=== PATIENT | female | born 1955 | race Caucasian/White ===

== ENCOUNTER 2023-04-06 23:42 | Inpatient (IN) | payer OTHER, SELFPAY ==
[2023-04-06] VITALS (11 sets, daily range): BP systolic 172–236; BP diastolic 89–223; BMI 45.0
[2023-04-06 18:13] LABS: % Basophils 0.4 % (0-2); % Eosinophils 1.6 % (0-6); % Immature Granulocytes 0.2 % (0-0.5); % Lymphocytes 22.2 % (20.5-51.1); % Neutrophils 70.6 % (42.2-75.2); Absolute Eosinophils 0.2 10^3/uL (0-0.7); Absolute Lymphocytes 2.1 10^3/uL (1.2-3.4); Absolute Monocytes 0.5 10^3/uL (0.1-0.6); Absolute Neutrophils 6.7 10^3/uL (1.4-6.5); Hematocrit 43.9 % (37.0-47.0); Hemoglobin 15.7 g/dL (12.0-16.0); Mean Corp Hgb Conc. 35.8 g/dL (33.0-37.0); Mean Corpuscular Hgb 30.3 pg (27.0-31.0); Mean Corpuscular Volume 84.7 fL (81.0-99.0); Nucleated Red Blood Cells % 0 %; Platelet Count 339 10^3/uL (130-400); Red Blood Cell Count 5.18 10^6/uL (4.20-5.40); Red Cell Dist. Width 12.9 % (11.5-14.5); White Blood Cell Count 9.5 10^3/uL (4.8-10.8)
[2023-04-06 18:25] LABS: APTT 41.7 Sec (23.4-35.0)
[2023-04-06 18:28] LABS: ALT (SGPT) 28 U/L (0-35); AST (SGOT) 35 U/L (14-36); Alkaline Phosphatase 84 U/L (38-126); Blood Urea Nitrogen 21 mg/dl (7-17); Calcium 9.4 mg/dl (8.4-10.2); Carbon Dioxide 21 mmol/L (22-30); Chloride 99 mmol/L (98-107); Glucose 332 mg/dl (70-99); Potassium 4.7 mmol/L (3.5-5.1); Sodium 134 mmol/L (135-145); Total Bilirubin 0.8 mg/dl (0.2-1.3); eGFR > 60.00
--- NOTE | 2023-04-06 19:15 | ED.GENMED ---
History of Present Illness
General
Chief Complaint: Chest Pain
Source: patient and family
Exam Limitations: none
Time Seen by Provider: 04/06/23 19:07
Nursing documentation reviewed up to this point in time: agreed with
Travel History
Have you had any contact with someone who has COVID-19?: No
Do you have any symptoms of coronavirus? Fever > 100 degrees, chills, cough, shortness of breath, sore throat, loss of taste or smell, muscle aches, or headache?: No
History of Present Illness
History of Present Illness:
68-year-old female originally from [place] been in the [place] for about 40 years companied by her 2 sisters presents with upper back pain she has had that for months today radiate to the front some pain in her chest no shortness of breath no fever
or chills she has chronic pain in her back due to her employment no PCP, does not take any medications, been helping care for her sister who has breast cancer also noticed some leg edema saw chiropractor today who she seen previously not much
relief, has had lumbar spine surgery many years ago
Past History
Past History
ED Past Medical History: None
ED Past Surgical History: Orthopedic (Lumbar surgery many years ago)
Social History
Tobacco: Non-smoker
Drug: None
Living: with family
Employment: Retired
Family History
Family History: Other (Sister with breast cancer)
Review of Systems
Review of Systems
All Other Systems: Not applicable
Constitutional: Denies fever or fatigue
Respiratory: Denies cough or trouble breathing
Cardiac: Reports chest pain
ABD/GI: Reports no symptoms
: Reports no symptoms
Musculoskeletal: Reports edema
Phy Exam
Physical Exam
Physical Exam:
Physical Exam
General: no apparent distress, not acutely ill
Neck: No jaundice
Heart: Tachycardic
Back, bilateral mild paraspinal thoracic spine pain
Lungs: no acute respiratory distress. clear bilaterally
Abdomen: Not tender
Neuro: alert and oriented. no focal neurological deficits
Skin: no rash
Psychiatric: well kept. interactive and cooperative
Extremities: Edema is
Scores
Heart Score for Chest Pain Patients
STEMI patient?: No
History: Moderately Suspicious
ECG: Significant ST-Depression
Age: >/= 65 years
Risk Factors: >/= 3 Risk Factors or History of CAD
Troponin: >1 - <3 x Normal Limit
Heart Score for Chest Pain Patients: 8
Heart Score Risk: 72.7 % MACE over next 6 weeks
Course
Orders/Labs/Results
Orders:
Orders
04/06/23 17:26
Electrocardiogram (*1) Urgent
Reason for Study: Chest Pain
EKG- Treatment ONCE
04/06/23 18:02
Complete Blood Count/With Diff Urgent
Comprehensive Metabolic Panel Urgent
Glycohemoglobin (HgbA1c) Urgent
Protime/PTT Urgent
04/06/23 19:00
NT-proBNP Urgent
Comment: ADD ON
Troponin I Urgent
04/06/23 19:13
CT Chest Pe Study Urgent
Comment:
Reason For Exam: pain
Diazepam [Valium] 5 mg PO NOW STA
Ketorolac [Toradol] 30 mg IV NOW STA
04/06/23 19:14
Add On- LAB Urgent
Tests Added?: hemoglobin aic
CR Cervical Spine 2 or 3 Vw Urgent
Comment:
Reason For Exam: sob
04/06/23 19:17
Add On- LAB Urgent
Tests Added?: pbnp
04/06/23 20:51
Heparin 4,000 units IV NOW STA
Metoprolol [Lopressor] 5 mg IV NOW STA
04/06/23 20:52
PTT Urgent
Comment: Obtain baseline before beginning heparin infusion if not already collected
Nursing to Place Non Medication Order As Directed
Physician Order: PTT 6 hours after initial start of Heparin infusion
04/06/23 20:54
Aspirin 325 mg PO NOW STA
04/06/23 20:56
PTT Urgent
Comment: Obtain baseline before beginning heparin infusion if not already collected
Nursing to Place Non Medication Order As Directed
Physician Order: PTT 6 hours after initial start of Heparin infusion
04/06/23 21:00
Heparin 22988 Units/250 ml 25,000 units in 250 ml IV PER PROTOCOL
Weight to be used for heparin protocol in kilograms (kg):: 126.4
Protocol:: Cardiac Tx/Acute Coronary
PTT Goal Range to be used:: PTT 73 to 111 seconds
Order type:: Initial
INITIAL Infusion Dose (UNITS/KG/hr) & then follow protocol:: 12 units/kg/hr
Infusion Dose in UNITS/hr & then follow protocol (UNITS/hr):: 1,000
INFUSION RATE in mL/hr & then follow protocol (mL/hr):: 10
PTT less than or equal to 64 seconds:: Increase rate by 200 units/hr (+ 2 mL/hr)
PTT 64.1 to 72.9 seconds:: Increase rate by 100 units/hr (+ 1 mL/hr)
PTT 73 to 111 seconds:: Target Range. No change in rate.
PTT 111.1 to 130.9 seconds:: Decrease rate by 100 units/hr (- 1 mL/hr)
PTT 131 to 199.9 seconds:: HOLD for 1 hr. Then decrease rate by 200 units/hr (- 2 mL/hr)
PTT greater than or equal to 200 seconds:: HOLD for 2 hrs & Notify Provider. Then decrease by 200 units/hr (-
2 mL/hr)
Lab follow-up:: Each change, PTT q6h until 2 consecutive are therapeutic. Then PTT
daily.
Nitroglycerin 100 mg/250 ml [Nitroglycerin Premix] 100 mg in 250 ml IV PER PROTOCOL
Initial dose in mcg/min, then titrate:: 20
Titrate to keep:: Chest Pain Free
Titrate by mcg/min:: 5 mcg/min, may increase by 10 mcg/min if dose > 20 mcg/min
Frequency of titrations (minutes):: every 3-5 minutes
Maximum dose in mcg/min:: 200
Begin to taper infusion when:: Remained at goal for 2hrs
Taper by mcg/min:: 5 mcg/min
Frequency of taper (minutes) if patient maintains goal:: 30
Taper to off?: Yes
If infusion off & no longer maintaining goal:: Contact Provider
04/06/23 21:32
Electrocardiogram (*1) Urgent
Reason for Study: Chest Pain
EKG- Treatment ONCE
04/06/23 22:02
CARDIOLOGY CONSULT Urgent
Consulting Provider: Mundo Toledo
Was physician already notified: Yes
Abnormal Lab Results
04/06/23 04/06/23
18:02 19:00
Absolute Neuts (auto) 6.7 H 10^3/uL
(1.4-6.5)
APTT 41.7 H Sec
(23.4-35.0)
Sodium 134 L mmol/L
(135-145)
Carbon Dioxide 21 L mmol/L
(22-30)
BUN 21 H mg/dl
(7-17)
Glucose 332 H mg/dl
(70-99)
Troponin I 0.765 H* ng/ml
04/06/23 18:02
04/06/23 18:02
Vital Signs
Initial and Last Documented VS:
Initial Vital Signs
Temp Pulse Resp BP Pulse Ox
98.5 F 113 18 236/149 99
04/06/23 17:24 04/06/23 17:24 04/06/23 17:24 04/06/23 17:24 04/06/23 17:24
Last Documented Vital Signs
Temp Pulse Resp BP Pulse Ox
98.5 F 91 23 211/104 92
04/06/23 17:24 04/06/23 23:00 04/06/23 23:00 04/06/23 23:00 04/06/23 23:00
MDM/Problems Addressed
Differential Diagnosis Includes:
Strain strain heart failure pneumonia PE occult malignancy?
MDM/Problems Addressed:
Back pain
Chronic conditions affecting care:
Arthritis
*Critical Care Note
Total Time (30-74mins, 75-104mins- exclusive of procedures): 45
Update Note
Update Note:
Update labs are noted we will check A1c proBNP check CT of the chest
7:45 PM troponin noted no chest pain does have tachycardia shortness of breath back pain troponin could be elevated due to PE, ACS dissection patient going over to CT now hold off on heparin until CAT scans return to ascertain what were dealing with
8:[address] noted we will start her on heparin beta-vito nitrates aspirin
BP heart rate outpatient with her current pain will follow closely repeat EKG
ED Attending Note
-
Portions of this chart may have been created with voice recognition software.� Occasional wrong word or��sound alike� substitutions may have occurred due to the inherent limitations of voice recognition software.
Discharge Plan
Departure
Patient Disposition: Admit
Date of Disposition: 04/06/23
Time of Disposition: 21:45
Admit to: IVU
Presentation/result/management discussed w/ accepting MD/DO: Hospitalist
Patient with high blood pressure during this ER visit?: Yes
Condition: Serious
Covid-19: Not Applicable
Discharge Problem:
ACS (acute coronary syndrome)
Prescriptions:
No Action
aspirin 81 mg Tablet,Delayed Release (Dr/Ec)
162 mg PO ONCE
ibuprofen [Advil] 200 mg Tablet
200 mg PO Q6H PRN (Reason: MILD PAIN)
Referrals:
UNKNOWN - PT DOES,NOT KNOW [Family Provider] -
Interventions
Interventions:
*Risk Screen - Suicide Last Done: 04/06/23 17:24
*General Assessment Last Done: 04/06/23 17:24
*Neglect/Abuse Screening Last Done: 04/06/23 17:24
*ED COVID-19 Vaccine History Last Done: 04/06/23 17:24
ED- Cardiac Assessment Last Done: 04/06/23 18:04
[2023-04-06] MEDS: TORADOL 30 MG IV (19:17)
[2023-04-06] MEDS: VALIUM 5 MG PO (19:18)
[2023-04-06 19:40] LABS: Troponin I 0.765 ng/ml
[2023-04-06 20:00] LABS: NT-proBNP 236 pg/ml
[2023-04-06] MEDS: ASPIRIN 325 MG PO (21:38)
[2023-04-06] MEDS: LOPRESSOR 5 MG IV (21:39)
[2023-04-06] MEDS: HEPARIN 4000 UNITS IV (21:47)
[2023-04-06] MEDS: HEPARIN 25000 UNITS/250 ML IV (21:49)
[2023-04-06] MEDS: NITROGLYCERIN PREMIX 250 IV (23:07)
--- NOTE | 2023-04-06 23:26 | HPS.HSE ---
Family Physician
-
Family Physician: NOT KNOW UNKNOWN - PT DOES
Chief Complaint
-
back pain, chest pain
History of Present Illness
The patient is a 68 yo Yi woman with PMH significant for chronic back pain, presents to the ED due to worsening back pain for the past several weeks that she initially attributed to chronic back problems, though the symptoms were associated
with substernal chest pain that worsened with activity and improved with rest. She was going to the chiropractor and also having her sister massage her back. Chest pain is substernal, not associated with dyspnea, typically improves with rest over
the past few weeks. Today she noticed chest pain that did not improve with rest. She has been helping her sister with breast cancer and otherwise does not typically take medications. She was not aware of high blood sugars. No fever, no syncope, no
dizziness, no headache, no neurological symptoms, no dysuria, no abdominal complaints.
In ED she is found to be HTN emergency, and NSTEMI
ED txt:
Ntg gtt
Hep gtt
Cards cx
aspirin 325
Toradol, Valium
Medical History
Past Medical History
Past Medical History: Reports Other (chronic back issues)
Past Surgical History: Reports Orthopedic (lumbar several years prior)
Social History
Tobacco: Non-smoker
Alcohol: None
Drug: None
Living: With Family (sisters)
Family History
Family History: Cancer (breast cancer in sister)
Allergies / Home Medications
Allergies reflects when Allergies were last updated in [employer].
Home Medications with original date entered in [employer]
Allergy/Medication List:
Allergies
Allergy/AdvReac Type Severity Reaction Status Date / Time
No Known Allergies Allergy Unverified 04/06/23 17:26
Home Medications
aspirin 81 mg tablet,delayed release 162 mg PO ONCE 04/06/23
ibuprofen 200 mg tablet (Advil) 200 mg PO Q6H PRN MILD PAIN 04/06/23
Review of Systems
-
A 12 point ROS was completed and negative except as noted: Yes
Physical Exam
Vital Signs
Vital Signs
Temp Pulse Resp BP Pulse Ox
98.5 F 91 23 211/104 92
04/06/23 17:24 04/06/23 23:00 04/06/23 23:00 04/06/23 23:00 04/06/23 23:00
Physical Exam
General: Well Developed, Well Nourished, Comfortable and Conversant
HEENT: NormoCephalic, Anicteric and Moist mucous membranes
Respiratory: Clear
Cardiac: S1/S2 and Regular Rhythm
GI: Soft, Non Tender and Non Distended
Musculoskeletal: No Clubbing, No Cyanosis, Edema, Left Lower Extremity (1+) and Edema, Right Lower Extremity (1+)
Skin: Warm and Dry
Neuro: AO x 3, No Motor Deficits and Nonfocal/grossly intact
Psych: Calm
Laboratory Results
-
04/06/23 18:02
04/06/23 18:02
Laboratory Results
PT 12.0 Sec (11.4-14.6) 04/06/23 18:02
INR 0.90 04/06/23 18:02
APTT 41.7 Sec (23.4-35.0) H 04/06/23 18:02
Total Bilirubin 0.8 mg/dl (0.2-1.3) 04/06/23 18:02
AST 35 U/L (14-36) 04/06/23 18:02
ALT 28 U/L (0-35) 04/06/23 18:02
Alkaline Phosphatase 84 U/L (38-126) 04/06/23 18:02
Troponin I 0.765 ng/ml H* 04/06/23 19:00
Impression/Plan
-
IMPRESSION:
The patient is a 68 yo Yi woman with PMH significant for chronic back pain, presents to the ED due to worsening back pain for the past several weeks that she initially attributed to chronic back problems, though the symptoms were associated
with substernal chest pain that worsened with activity and improved with rest. She was going to the chiropractor and also having her sister massage her back. Chest pain is substernal, not associated with dyspnea, typically improves with rest over
the past few weeks. Today she noticed chest pain that did not improve with rest. She has been helping her sister with breast cancer and otherwise does not typically take medications. She was not aware of high blood sugars. No fever, no syncope, no
dizziness, no headache, no neurological symptoms, no dysuria, no abdominal complaints.
In ED she is found to be HTN emergency, and NSTEMI
ED txt:
Ntg gtt
Hep gtt
Cards cx
aspirin 325
Toradol, Valium
#NSTEMI, possible unstable angina
-IVU admit
-Cards consulted from ED
-serial EKG, serial Trop
-Echo
-cont NTG gtt and heparin gtt
-daily aspirin and statin
-NPO p mn
-cardiovascular labs in am, PT/INR, CBC repeat, Mg, TSH
#New DM diagnosis
-SSI for now, monitor glucose closely and may need to start long-activing insulin
-HgbA1C in am
#HTN emergency
-continue Ntg gtt w close monitoring in IVU
#BMI 45.0
-complicates all aspect of care
DVT - Hep gtt
Full Code
75 minutes of critical care time is spent on the care of this patient
[2023-04-07] VITALS (16 sets, daily range): BP systolic 128–204; BP diastolic 67–107; BMI 44.4
--- NOTE | 2023-04-07 00:45 | PTCARENOTE ---
Received patient from ED. Pt on heparin gtt @ 1000 units, nitro gtt @ 20mcg. Pt denies chest pain. Assessment per flowsheet. Sisters at bedside. Pt oriented to room, call rossi in reach. Troponin drawn and EKG done. BP elevated - will recheck after
patient is resting.
[2023-04-07] MEDS: LIPITOR 40 MG PO (01:38)
[2023-04-07 04:03] LABS: % Basophils 0.3 % (0-2); % Eosinophils 1.6 % (0-6); % Immature Granulocytes 0.1 % (0-0.5); % Lymphocytes 31.3 % (20.5-51.1); % Monocytes 6.7 % (1.7-9.3); Absolute Eosinophils 0.1 10^3/uL (0-0.7); Absolute Lymphocytes 2.8 10^3/uL (1.2-3.4); Absolute Monocytes 0.6 10^3/uL (0.1-0.6); Absolute Neutrophils 5.4 10^3/uL (1.4-6.5); Hematocrit 38.1 % (37.0-47.0); Hemoglobin 13.1 g/dL (12.0-16.0); Mean Corp Hgb Conc. 34.4 g/dL (33.0-37.0); Mean Corpuscular Hgb 29.6 pg (27.0-31.0); Mean Corpuscular Volume 86.2 fL (81.0-99.0); Mean Platelet Volume 9.1 fL (7.4-10.4); Nucleated Red Blood Cells % 0 %; Platelet Count 321 10^3/uL (130-400); Red Blood Cell Count 4.42 10^6/uL (4.20-5.40); White Blood Cell Count 8.9 10^3/uL (4.8-10.8)
[2023-04-07 04:24] LABS: INR 1.06; PT 13.6 Sec (11.4-14.6)
[2023-04-07 04:26] LABS: ALT (SGPT) 30 U/L (0-35); APTT 61.7 Sec (23.4-35.0); AST (SGOT) 75 U/L (14-36); Albumin 3.6 g/dl (3.5-5.0); Alkaline Phosphatase 76 U/L (38-126); Blood Urea Nitrogen 20 mg/dl (7-17); Calcium 8.6 mg/dl (8.4-10.2); Carbon Dioxide 22 mmol/L (22-30); Chloride 108 mmol/L (98-107); Estimated Creatinine Clearance 119 ml/min; Glucose 188 mg/dl (70-99); HDL Cholesterol 43 mg/dl; Potassium 4.2 mmol/L (3.5-5.1); Sodium 134 mmol/L (135-145); Total Bilirubin 0.4 mg/dl (0.2-1.3); Total Cholesterol 285 mg/dl (50-199); eGFR > 60.00
[2023-04-07 04:47] LABS: Triglyceride 492 mg/dl (10-149)
[2023-04-07 05:30] LABS: LDL Cholesterol, Direct 141 mg/dl
--- NOTE | 2023-04-07 07:50 | CON.CAR ---
Consultation
Consultation Request
Date/Time Consultation Requested: 04/06/2023
Date/Time Consultation Performed: 04/07/2023
Requesting Provider: hospitalist
Performing Provider: gauri acevedo
Reason for Consultation: NSTEMI
Medical History
-
Chief Complaint: chest pain
History of Present Illness:
Patient is 68-year-old female with past medical history of chronic back pain who presented to the emergency room with chest and shoulder pain. She tells me that over approximately the past months she has had typical anginal symptoms. However, she
she did not recognize it as such, and she just thought it was her shoulder pain. She says that she would have shoulder and chest pain described as pressure-like and central that was worse with walking or walking up a flight of stairs, and relieved
with rest. Yesterday, she was out at the mall and was unable to get out of the car. She just was not feeling well and was having this shoulder and chest pain. She then went home and the shoulder and chest pain she just tells me it was tremendous.
It was pressure-like in central and this time did not go away. She then decided to come to the emergency room.
In the emergency room initial troponin was elevated she was started on a heparin drip and given aspirin and cardiology was consulted.
Past Medical History
Past Medical History: None
Past Surgical History: Other (back surgery )
Social History
Tobacco: Non-Smoker
Alcohol: None
Personal: Single
Living: With Family
Employment: Retired
Family History
Family History: Reviewed & Not Pertinent
Allergies / Home Medications
Allergy/AdvReac Type Severity Reaction Status Date / Time
No Known Allergies Allergy Unverified 04/06/23 17:26
Medication Instructions Recorded Confirmed Type
aspirin 81 mg tablet,delayed 162 mg PO ONCE 04/06/23 04/06/23 History
release
ibuprofen 200 mg tablet (Advil) 200 mg PO Q6H PRN MILD PAIN 04/06/23 04/06/23 History
Review of Systems
-
All other systems: Negative unless noted
Physical Exam
Vital Signs
Temp Pulse Resp BP Pulse Ox
97.7 F 92 18 138/79 93
04/07/23 03:44 04/07/23 03:41 04/07/23 03:44 04/07/23 03:41 04/07/23 03:44
Lab Results
04/07/23 03:51
04/07/23 03:51
Troponin I 14.700 ng/ml H* 04/07/23 03:51
Htb-J-Pdohbowzcqb Pept 236 pg/ml 04/06/23 19:00
Physical Exam
General: Well Developed, Well Nourished and No Apparent Distress
HEENT: Normocephalic
Respiratory: Clear and Non Labored Respirations
Cardiac: S1/S2 and Regular Rhythm
GI: Soft, Non Tender, Non Distended, Normal Bowel Sounds and Other (obese)
Musculoskeletal: No Cyanosis and No Edema
Skin: Warm and Dry
Neuro: AO x 3
Psych: Calm
Impression / Plan
-
68 yo female with no significant PMH and not on any medications who is here for chest pain and likely having an NSTEMI.
ACS
- heparin gtt
- atorva 40mg
- metoprolol 12.5 mg bid uptitrate as tolerated
- aspirin 81 daily
- veterinary laboratory diagnostician today
- TTE ordered
New HLD
- atorvastatin 40 mg
Likely DM2
- per primary
- consider SGLT2i
Data Reviewed
-
EKG: Tracing Personally Visualized and interpreted
Labs: Labs Reviewed by me and Discussed with Patient
[2023-04-07] MEDS: LOPRESSOR 12.5 MG PO ×2 (08:16→20:14)
[2023-04-07] MEDS: LOW STRENGTH ASPIRIN 81 MG PO (08:16)
[2023-04-07 08:17] LABS: Glucose - Point of Care 155 mg/dl (70-99)
[2023-04-07 08:56] LABS: Glycohemoglobin (HgbA1c) 8.9 % (4.0-5.6)
[2023-04-07] MEDS: NOVOLOG FLEXPEN-LOW RESISTANCE 1 UNITS SC ×3 (09:13→18:36)
--- NOTE | 2023-04-07 10:37 | CM ---
Chart reviewed. Patient is independent of ADLS, lives with her 2 sisters in a 2 [address], 2 [place], ambulates with a SPC 2/2 chronic back pain. Patient also has a stair glide. The patient and her 1 sister help to care for her other sister who has
metastatic CA. Patient is not current with VN and wants to think about getting VN. CM to follow
--- NOTE | 2023-04-07 10:54 | PTCARENOTE ---
Pt to cathead operator. heparin gtt stopped at 1050. report given to cathead operator RN.
--- NOTE | 2023-04-07 11:47 | ITS.CL.CATH ---
Supervisor Screen Making - Catheterization
Cardiac Catheterization
Procedure Report:
CARDIAC CATHETERIZATION REPORT
Date of Procedure: 04/07/2023
Referring: Mundo Toledo MD
Indication: Non-STEMI (peak troponin 15.3)
HEMODYNAMIC DATA
AO: 156/88
LV: 156/16
LEFT VENTRICULOGRAPHY: Normal left ventricular wall motion with EF 67%
CORONARY ANGIOGRAPHY
Dominance: Right
Left Main: 60% distal stenosis
LAD: There is 40% proximal LAD stenosis. There is focal 80% mid LAD stenosis distal to the takeoff of the large second diagonal branch. There is a 60% stenosis in the mid to distal LAD and another 60% stenosis in the distal LAD. The first
diagonal branch is small. The second diagonal branch is large with tandem 90% and 80% proximal stenoses
Circumflex: There is a large ramus intermedius branch with focal 90% proximal stenosis and 70% mid stenosis. The circumflex gives rise to a tiny OM1, a large OM 2 and a small occluded OM 3. The distal circumflex is occluded just past the takeoff
of the small OM 3. OM 2 is large with 80% proximal to mid stenosis
RCA: The RCA is dominant with 40% proximal stenosis and a focal 70% mid stenosis. There is 60% stenosis in the distal RCA past the crux. The RPDA is occluded at its origin and fills via [id number] collaterals. The first RPL has 90% ostial
stenosis. The RCA terminates with a small second RPL
Closure Device: None-the procedure was performed via the right radial artery. The Juan Francisco's test was normal prior to the procedure.
Radiation (mGy): 600
DAP (cm2.Gy): 41.2
Fluoroscopy time: 7.8 minutes
CONCLUSIONS
1: ACS/non-STEMI presentation
2: Systemic hypertension
3. Normal left ventricular function with EF 67%
4. Extremely severe triple-vessel CAD with 60% LMCA stenosis
5. Inpatient CABG is recommended. A full revascularization will be difficult but would include grafts to the LAD, large D2, ramus intermedius, OM 2, RPDA, and first right posterolateral branch
Copy to: Mundo Toledo MD
David Chacko MD, [facility], [facility]
--- NOTE | 2023-04-07 12:12 | PTCARENOTE ---
Pt returned from energy systems laboratory director. R radial site CDI. VSS. Educated on right wrist restrictions. Will continue to monitor.
[2023-04-07 12:19] LABS: Glucose - Point of Care 152 mg/dl (70-99)
--- NOTE | 2023-04-07 12:30 | CONSULT.CT ---
Consultation
-
Date/Time Consultation Requested: 04/07/2023
Date/Time Consultation Performed: 04/07/2023
Requesting Provider: Dr. Chacko
Performing Provider: Cesla cosby
Reason for Consultation: CABG evaluation
Patient History
History of Present Illness
Patient is a 68-year-old female who presented to the emergency room with chest and shoulder pain. She reports the pain occurring over the past few months which would come on with exertion and would be relieved with rest. On the day of admission
she developed back pain which radiated to the front of her chest and down into the arms. She said this pain was worse than before described as pressure-like sensation in the center of her chest and was not relieved with rest. She proceeded to come
to the emergency room. In the emergency department she ruled in for a NSTEMI with serial enzyme studies and was treated with a heparin and nitroglycerin drip. Today she is resting sitting up in bed and is chest pain-free. Earlier today she
underwent cardiac catheterization which showed multivessel coronary artery disease.
She was seen by Dr. Mp Haque and will be scheduled for CABG later this week.
Preoperative studies ordered
On admission her hemoglobin A1c was 8.9, patient did not know she was diabetic.
Past Medical History
Past Medical History: Angina, CAD, GALLO, HTN, Hypercholesterolemia and SOB
Past Surgical History
Past Surgical History: Orthopedic (Back surgery approximately 40 years ago in [facility])
Dental History
Does not have any dental issues currently and has not seen a dentist in over 10 years
Family History
Mother: at Age ( at the age of 90 from heart failure status post myocardial infarction)
Father: at Age (88 years of age)
Family Medical History: CAD and Hypertension
Social History
Alcohol: None
Drug: None
Tobacco: Non-Smoker
Personal: Single (Never )
Living: With Family (Lives with sister who has breast cancer)
Employment: Retired
Allergies
Allergy/AdvReac Type Severity Reaction Status Date / Time
No Known Allergies Allergy Unverified 04/06/23 17:26
Home Medications
Medication Instructions Recorded Confirmed Type
aspirin 81 mg tablet,delayed 162 mg PO ONCE Blood Clot 04/06/23 04/06/23 History
release Prevention/Tx
ibuprofen 200 mg tablet (Advil) 200 mg PO Q6H PRN MILD PAIN 04/06/23 04/06/23 History
Review of Systems
-
History Source: Patient
General: Reports No Symptoms
HEENT: Reports No Symptoms
Respiratory: Reports No Symptoms
Cardiac: Reports Chest Pain, CAD and Edema (Bilateral ankle swelling)
Abdomen/GI: Reports Constipation
: Reports No Symptoms
Musculoskeletal: Reports Arthralgias and Other (Chronic back pain)
Skin: Reports No Symptoms
Neurological: Reports No Symptoms
Vascular: Reports Other (Complains of leg heaviness with walking)
Physical Exam
Vital Signs
Temp 97.5 F 04/07/23 11:59
Temp route: Oral 04/07/23 11:59
Pulse 91 04/07/23 12:15
Rhythm: Normal sinus rhythm 04/07/23 08:47
With- First Degree Heart Block 04/07/23 08:47
Resp Rate 20 04/07/23 11:59
Blood pressure 135/80 04/07/23 12:15
Blood pressure extremity used: Left upper arm 04/07/23 11:59
Position: Lying 04/07/23 11:59
MAP (cuff-Jackson Monitor) 94 04/07/23 12:15
SaO2 95 04/07/23 12:15
Oxygen Mode of Delivery Room air 04/07/23 11:59
Can the patient verbally communicate their pain? Yes 04/07/23 01:00
Actual Weight 274 lb 14.663 oz 04/07/23 02:57
Body Mass Index (BMI) 44.4 04/07/23 02:57
Labs
04/07/23 03:51
04/07/23 03:51
PT 13.6 Sec (11.4-14.6) 04/07/23 03:51
APTT Cancelled 04/07/23 11:30
Hemoglobin A1c 8.9 % (4.0-5.6) H 04/06/23 18:02
Troponin I Cancelled 04/07/23 06:31
Pst-C-Djbwpehetyq Pept 236 pg/ml 04/06/23 19:00
Exam
General: Well Developed, Well Nourished, No Apparent Distress and Comfortable
HEENT: Normocephalic, Anicteric and Atraumatic
Neck: Trachea Midline
Respiratory: Clear
Cardiac: Regular Rhythm
GI: Soft, Non Tender, Non Distended and Normal Bowel Sounds
Rectal: Deferred by Provider
Skin: Warm and Dry
Neuro: Awake, Alert, Oriented and AO x 3
Extremities: Lower Level Edema and Pulses (Distal pulses intact dorsalis pedis pulses +1 bilaterally)
Lymph: No Lymphadenopathy
Psych: Calm
Assessment / Plan
-
Assessment:
ACS/NSTEMI
DM A1c 8.9
Chronic back pain, history of back surgery in the past
Hypertension
Hyperlipidemia
Morbid obesity
Plan:
Preoperative studies ordered
CABG later this week
--- NOTE | 2023-04-07 13:46 | PN.DE.MGMTRT ---
Insulin Management
- -
04/07/2023: Diabetes Management Consult:
68 year old female admitted with chest pain due to ACS/NSTEMI. PMH includes: CAD, GALLO, HTN, Hypercholesterolemia, Chronic back pain, Morbid obesity and New Dx T2DM, A1C 8.9%. States she is familiar with DM from her sister who is battling cancer and
recent dx of T2DM.
Current DM regimen includes low corrective insulin. FBG 188 this AM, premeal 152-155.
Will start Metformin 500mg BID, Glipizide 5mg BID and Jardiance 10mg daily (cost $40/mth)
Cont low corrective insulin. Discussed plan of care with pt. Will reassess in am if she will need HS Lantus.
Pt declined glucose meter instructions at this time, states she has had a lot of information today and would like to receive instructions tomorrow when her other 2 sisters are here.
Diabetes History
- -
Type of Diabetes: 2
Pre-Admission Diabetes Regimen
04/06/23 04/07/23
18:02 03:51
Creatinine 0.7 0.6
Lab Results
Hemoglobin A1c 8.9 % (4.0-5.6) H 04/06/23 18:02
Insulin Pump Settings
IP Diabetes Regimen
04/06/23 04/07/23 04/07/23
18:02 03:51 08:16
Glucose 332 H 188 H
POC Glucose 155 H
04/07/23
12:17
Glucose
POC Glucose 152 H
Patient Education
--- NOTE | 2023-04-07 14:31 | CM ---
Preoperative and postoperative instructions and restrictions explained to the patient, along with showering guideline. I gave the patient a cardiac surgery book. Patient is agreeable to a home visit by CT Transitional Care RN. Plan is for the
patient to return home with CT Transitional Care RN.
--- NOTE | 2023-04-07 14:33 | CM ---
Addendum entered by Jessica Macedo RN 04/07/23 14:54:
I will place a free 30 day coupon in the patient's red discharge folder
Original Note:
Pricing on Farxiga through the patient's PP, ID # [id number], ph# [phone], is $47 for 30 days and $94 for 90 days
Jardiance 10mg is $47 for 30 days and $94 for 90 days.
[2023-04-07] MEDS: HEPARIN 25000 UNITS/250 ML IV (15:24)
--- NOTE | 2023-04-07 15:26 | W.PN.HOSP.TC ---
Today's Communication/Plan
-
CABG later this week
Diabetic management
Assessment / Plan
Assessment / Plan
Exam
General: Well Developed, Well Nourished, No Apparent Distress and Comfortable
HEENT: Normocephalic, Anicteric and Atraumatic
Neck: Trachea Midline
Respiratory: Clear
Cardiac: Regular Rhythm
GI: Soft, Non Tender, Non Distended and Normal Bowel Sounds
Rectal: Deferred by Provider
Skin: Warm and Dry
Neuro: Awake, Alert, Oriented and AO x 3
Extremities: Lower Level Edema and Pulses (Distal pulses intact dorsalis pedis pulses +1 bilaterally)
Lymph: No Lymphadenopathy
Psych: Calm
#NSTEMI
#CAD
#HLD
-Triple vessel Disease
-CABG inpatient- cards had consulted
-Echo
-Hep ggt as per Cards
-daily aspirin and statin
-s/p nitro ggt
-statin
#New DM diagnosis
-SSI for now, monitor glucose closely and may need to start long-acting insulin
-HgbA1C - 8.9
-DM educator consulted
-holding metformin with recent cath
-Glipizide and Farxiga started
#HTN emergency
-s/p nitro ggt
#Hyponatremia
-mild
-ctm
#BMI 45.0
-educated on weight loss
DVT - Hep gtt
Full Code
Total time spent on today's encounter was 55 minutes which included time spent in counseling the patient/family regarding diagnosis and treatment plan as listed above, goals of care, and symptom management. Case was discussed with nursing staff,
specialists, and care coordinators/case management. All labs and imaging personally reviewed by me. Remainder the time spent in detailed review of previous records, lab data, imaging, and other medical provider documentation.
Anticipated Discharge: > 48 hours
Subjective/Interval History
-
Date of Service: April 07, 2023
No acute events overnight
Objective Data
-
Labs:
Laboratory Results
04/07/23 04/07/23
03:51 11:30
WBC 8.9
Hgb 13.1
Hct 38.1
Plt Count 321
PT 13.6
INR 1.06
APTT 61.7 H Cancelled
Sodium 134 L
Potassium 4.2
Chloride 108 H
Carbon Dioxide 22
BUN 20 H
Creatinine 0.6
Glucose 188 H
Calcium 8.6
Total Bilirubin 0.4
AST 75 H
ALT 30
Alkaline Phosphatase 76
Vital Signs:
Vital Signs
Temp Pulse Resp BP Pulse Ox
97.5 F 100 20 136/73 96
04/07/23 11:59 04/07/23 15:00 04/07/23 11:59 04/07/23 15:00 04/07/23 13:00
I&O
04/06/23 04/07/23 04/08/23
06:59 06:59 06:59
Output Total 150 / 150
Balance -150 / -150
Review of Systems
-
History Source: Patient
All other systems: Not reviewed unless documented
Data Reviewed
-
Diagnostic Radiology: Image personally visualized and interpreted and Report Reviewed by me
CT Scan: Image personally visualized and interpreted and Report Reviewed by me
Labs: Labs Reviewed by me
[2023-04-07] MEDS: JARDIANCE 10 MG PO (17:31)
[2023-04-07] MEDS: LIPITOR 80 MG PO (17:31)
[2023-04-07] MEDS: GLUCOPHAGE 500 MG PO (17:32)
[2023-04-07] MEDS: GLUCOTROL 5 MG PO (17:32)
[2023-04-07] MEDS: TYLENOL 650 MG PO (17:33)
[2023-04-07 18:36] LABS: Glucose - Point of Care 165 mg/dl (70-99)
--- NOTE | 2023-04-07 21:14 | PTCARENOTE ---
assumed care of patient at the change of shift. during shift change, patient states having upper back pain, 4/10, for the last 30 minutes. patient states same pain at had her come to the emergency room. increased nitro gtt to 20 mcg/min. bp 161/88.
HR ST 100s. patient denies any sob. 94% on RA.
reassessed patient-patient states improved pain. 0-10. improved bp 137/81. educated patient to inform RN with any changes. patient verbalized understanding.
R radial site, CDI. + pulse. ambulating to the bathroom with a rolling walker. heparin gtt and nitro gtt infusing per protocol. IV sites patent.
[2023-04-07 21:44] LABS: Glucose - Point of Care 97 mg/dl (70-99)
--- NOTE | 2023-04-07 22:59 | PTCARENOTE ---
reviewed insulin order with Tommy HALL. Lantus HS placed on hold. blood glucose 97.
patient resting in bed. denies any pain at this time. heparin and nitro gtt infusing.
[2023-04-08] MEDS: HEPARIN 25000 UNITS/250 ML IV ×2 (00:19→18:06)
[2023-04-08 04:37] VITALS: BP 139/73
[2023-04-08 05:00] LABS: Hematocrit 35.5 % (37.0-47.0); Hemoglobin 12.4 g/dL (12.0-16.0); Mean Corp Hgb Conc. 34.9 g/dL (33.0-37.0); Mean Corpuscular Hgb 29.7 pg (27.0-31.0); Mean Corpuscular Volume 85.1 fL (81.0-99.0); Mean Platelet Volume 8.9 fL (7.4-10.4); Platelet Count 307 10^3/uL (130-400); Red Blood Cell Count 4.17 10^6/uL (4.20-5.40); Red Cell Dist. Width 13.2 % (11.5-14.5); White Blood Cell Count 9.8 10^3/uL (4.8-10.8)
[2023-04-08 05:10] LABS: INR 1.05; PT 13.5 Sec (11.4-14.6)
[2023-04-08 05:39] LABS: ALT (SGPT) 31 U/L (0-35); AST (SGOT) 47 U/L (14-36); Albumin 3.7 g/dl (3.5-5.0); Alkaline Phosphatase 69 U/L (38-126); Blood Urea Nitrogen 13 mg/dl (7-17); Calcium 8.8 mg/dl (8.4-10.2); Carbon Dioxide 24 mmol/L (22-30); Chloride 106 mmol/L (98-107); Direct Bilirubin 0.5 mg/dl (0.0-0.4); Estimated Creatinine Clearance 119 ml/min; Glucose 153 mg/dl (70-99); Magnesium 1.9 mg/dl (1.6-2.3); Potassium 3.9 mmol/L (3.5-5.1); Sodium 135 mmol/L (135-145); Total Bilirubin 0.7 mg/dl (0.2-1.3); Total Protein 6.1 g/dl (6.3-8.2); eGFR > 60.00
[2023-04-08 06:00] VITALS: BMI 44.0
[2023-04-08 07:04] VITALS: BP 169/80
[2023-04-08 07:07] LABS: Glucose - Point of Care 168 mg/dl (70-99)
--- NOTE | 2023-04-08 08:13 | W.PN.CD ---
Today's Communication / Plan
-
increase metoprolol
tte ordered
Impression / Plan
-
68 yo female with no significant PMH and not on any medications who is here for chest pain and likely having an NSTEMI.
ACS cath showed multivessel CAD
- CABG tomorrow NPO after midnight
- heparin gtt
- atorva 40mg
- metoprolol 25 mg bid uptitrate as tolerated
- aspirin 81 daily
- TTE ordered
New HLD
- atorvastatin 40 mg
Likely DM2
- per primary
- consider SGLT2i
Physical Exam
Vital Signs/Labs
Vital Signs
Temp Pulse Resp BP Pulse Ox
98.1 F 102 20 139/73 95
04/08/23 07:04 04/08/23 07:04 04/08/23 07:04 04/08/23 04:37 04/08/23 07:04
04/07/23 04/08/23 04/09/23
06:59 06:59 06:59
Actual Weight 274 lb 14.663 oz
04/08/23 04:37
04/08/23 04:37
PT 13.5 Sec (11.4-14.6) 04/08/23 04:37
INR 1.05 04/08/23 04:37
APTT 79.0 Sec (23.4-35.0) H 04/08/23 04:37
APTT Cancelled 04/08/23 04:37
Magnesium 1.9 mg/dl (1.6-2.3) 04/08/23 04:37
Triglycerides 492 mg/dl (10-149) H 04/07/23 03:51
LDL Cholesterol, Calc mg/dl 04/07/23 03:51
VLDL Cholesterol, Calc mg/dl (0-30) 04/07/23 03:51
HDL Cholesterol 43 mg/dl 04/07/23 03:51
04/06/23
19:00
Dov-H-Vzarigvyywz Pept 236
LAB Results
04/06/23 04/06/23 04/07/23
18:02 19:00 01:13
Troponin I Cancelled 0.765 H* 15.300 H* D
04/07/23 04/07/23
03:51 06:31
Troponin I 14.700 H* Cancelled
Physical Exam
Constitutional: No acute distress
EENT: Anicteric
Cardiovascular: Rhythm & rate is regular
Respiratory: Respiratory effort normal and Lungs clear to auscul.
GI: Soft
Neuro/Psych: AO x 3
Data Reviewed
-
Date of Service: April 08, 2023
EKG: Tracing Personally Visualized and interpreted
Medical Tests (PFT, Pathology etc): Image Personally Visualized and interpreted
Labs: Labs Reviewed by me
--- NOTE | 2023-04-08 08:17 | W.PN.UPDATE ---
Update Note
Progress Note Update
Procedure Type:�Isolated CABG
PERIOPERATIVE OUTCOME ESTIMATE %
Operative Mortality 2.06%
Morbidity & Mortality 10.9%
Stroke 2.69%
Renal Failure 0.949%
Reoperation 1.74%
Prolonged Ventilation 6.03%
Deep Sternal Wound Infection 0.644%
Long Hospital Stay (>14 days) 6.29%
Short Hospital Stay (<6 days)* 34.1%
Clinical Summary
Planned Surgery: Isolated CABG, Urgent, First cardiovascular surgery
Demographics: 68 year old, White, female, 124.7kg, 168cm, BMI: 44.2 kg/m�
Lab Values: Creatinine: 0.5 mg/dL, Hematocrit: 35.5%, WBC Count: 9.8 10�/�L, Platelet Count: 272660 cells/�L
Substance Abuse: Never smoker
Risk Factors / Comorbidities: Diabetes Mellitus , Hypertension, Family Hx of CAD
Vascular RF: LT Carotid Sten. >=80%
Cardiac Status: NYHA Class II, Ejection Fraction = 50%
Coronary Artery Disease: 3 vessels diseased, Left Main Stenosis >=50%, Non-ST Elevation MN, MN: 1 to 7 Days
Valve Disease: Mild MR
[2023-04-08] MEDS: TYLENOL 650 MG PO ×2 (08:27→14:38)
[2023-04-08] MEDS: LOW STRENGTH ASPIRIN 81 MG PO (08:28)
[2023-04-08] MEDS: NOVOLOG FLEXPEN-LOW RESISTANCE 1 UNITS SC (08:28)
[2023-04-08] MEDS: LOPRESSOR 25 MG PO ×2 (08:28→19:52)
--- NOTE | 2023-04-08 09:08 | PN.DE.MGMTRT ---
Insulin Management
- -
04/07/2023: Diabetes Management Consult:
68 year old female admitted with chest pain due to ACS/NSTEMI. PMH includes: CAD, GALLO, HTN, Hypercholesterolemia, Chronic back pain, Morbid obesity and New Dx T2DM, A1C 8.9%. States she is familiar with DM from her sister who is battling cancer and
recent dx of T2DM.
Current DM regimen includes low corrective insulin. FBG 188 this AM, premeal 152-155.
Will start Metformin 500mg BID, Glipizide 5mg BID and Jardiance 10mg daily (cost $40/mth)
Cont low corrective insulin. Discussed plan of care with pt. Will reassess in am if she will need HS Lantus.
Pt declined glucose meter instructions at this time, states she has had a lot of information today and would like to receive instructions tomorrow when her other 2 sisters are here.
04/08/2023 Diabetes Management Follow up
Patient off the unit for testing. I spoke with CT PAs and patient nurse. Fasting glucose 168, will resume Jardiance 10 mg daily and glipizide 5 mg daily first dose when patient returns from testing. Patient for OR tomorrow, will follow.
Diabetes History
- -
Type of Diabetes: 2
Pre-Admission Diabetes Regimen
04/08/23
04:37
Creatinine 0.5 L
Lab Results
Hemoglobin A1c 8.9 % (4.0-5.6) H 04/06/23 18:02
Insulin Pump Settings
IP Diabetes Regimen
04/07/23 04/07/23 04/07/23
12:17 18:34 21:43
Glucose
POC Glucose 152 H 165 H 97
04/08/23 04/08/23
04:37 07:06
Glucose 153 H
POC Glucose 168 H
Meal type: Dinner
Meal type: Lunch
Amount consumed: 100%
Amount consumed: 100%
Patient Education
[2023-04-08 11:27] VITALS: BP 149/83
--- NOTE | 2023-04-08 11:28 | CM ---
Addendum entered by Jessica Macedo RN 04/08/23 12:01:
Confirmed with patient, she does not have a PCP. If the patient needs to go to Skilled Rehab after surgery the patient and family prefer [facility] or [facility]. They do not want [facility] [place].
Original Note:
Chart reviewed. Patient is independent of ADLS, lives with her sisters in a 2 STH, with a stair glide, 2 ALAYNA, ambulates with a SPC 2/2 chronic back pain. Reviewed preoperative and postoperative teaching with her sisters, who were at bedside.
Patient is going for a CABG tomorrow. Plan is for the patient to return home with CT Transitional RN. CM to follow
[2023-04-08 11:33] LABS: APTT 68.5 Sec (23.4-35.0)
--- NOTE | 2023-04-08 11:53 | PTCARENOTE ---
pt continues to be SR/ST on the monitor, HR in the 90s-100s, VSS. Pt c/o VARGAS 05/02, Tylenol given as ordered with relief. Pt visiting with family throughout the day. Pt educated on plan of care for the day and pt verbalized understanding. call rossi
within reach.
[2023-04-08 12:29] LABS: Glucose - Point of Care 144 mg/dl (70-99)
[2023-04-08] MEDS: GLUCOTROL 5 MG PO (13:23)
[2023-04-08] MEDS: NOVOLOG FLEXPEN-LOW RESISTANCE SC ×2 (13:24→18:09)
--- NOTE | 2023-04-08 15:12 | W.PN.HOSP.TC ---
Today's Communication/Plan
-
CABG tomorrow
Glucose control
Continue heparin drip, nitro drip
Beta-vito, statin therapy
Assessment / Plan
Assessment / Plan
Exam
General: Well Developed, Well Nourished, No Apparent Distress and Comfortable
HEENT: Normocephalic, Anicteric and Atraumatic
Neck: Trachea Midline
Respiratory: Clear
Cardiac: Regular Rhythm
GI: Soft, Non Tender, Non Distended and Normal Bowel Sounds
Rectal: Deferred by Provider
Skin: Warm and Dry
Neuro: Awake, Alert, Oriented and AO x 3
Extremities: Lower Level Edema and Pulses (Distal pulses intact dorsalis pedis pulses +1 bilaterally)
Lymph: No Lymphadenopathy
Psych: Calm
#NSTEMI
#CAD
#HLD
-Triple vessel Disease
-CABG inpatient-plan for CABG tomorrow 04/09
-Echo�50 to 55%, moderate concentric left ventricular hypertrophy
-Hep ggt as per Cards
-daily aspirin and statin
-s/p nitro ggt
-statin
#Hyperlipidemia
� Start statin
#New DM diagnosis
-SSI for now, monitor glucose closely and may need to start long-acting insulin
-HgbA1C - 8.9
-DM educator consulted
-holding metformin with recent cath
-Glipizide and Farxiga started
#HTN emergency
-s/p nitro ggt
#Hyponatremia
-mild
-ctm
#BMI 45.0
-educated on weight loss
DVT - Hep gtt
Full Code
Total time spent on today's encounter was 56 minutes which included time spent in counseling the patient/family regarding diagnosis and treatment plan as listed above, goals of care, and symptom management. Case was discussed with nursing staff,
specialists, and care coordinators/case management. All labs and imaging personally reviewed by me. Remainder the time spent in detailed review of previous records, lab data, imaging, and other medical provider documentation.
Anticipated Discharge: > 48 hours
Subjective/Interval History
-
Date of Service: April 08, 2023
No acute events
Objective Data
-
Labs:
Laboratory Results
04/08/23 04/08/23 04/08/23
04:37 04:37 11:08
WBC 9.8
Hgb 12.4
Hct 35.5 L
Plt Count 307
PT 13.5
INR 1.05
APTT 79.0 H Cancelled 68.5 H
Sodium 135
Potassium 3.9
Chloride 106
Carbon Dioxide 24
BUN 13
Creatinine 0.5 L
Glucose 153 H
Calcium 8.8
Total Bilirubin 0.7
AST 47 H
ALT 31
Alkaline Phosphatase 69
04/08/23
17:45
WBC
Hgb
Hct
Plt Count
PT
INR
APTT Pending
Sodium
Potassium
Chloride
Carbon Dioxide
BUN
Creatinine
Glucose
Calcium
Total Bilirubin
AST
ALT
Alkaline Phosphatase
Vital Signs:
Vital Signs
Temp Pulse Resp BP Pulse Ox
98.0 F 100 20 149/83 95
04/08/23 11:30 04/08/23 11:27 04/08/23 11:30 04/08/23 11:27 04/08/23 11:30
I&O
04/07/23 04/08/23 04/09/23
06:59 06:59 06:59
Intake Total 650 / 650 480 / 480
Output Total 150 / 150
Balance -150 / -150 650 / 650 480 / 480
Review of Systems
-
History Source: Patient
All other systems: Not reviewed unless documented
Data Reviewed
-
Diagnostic Radiology: Image personally visualized and interpreted and Report Reviewed by me
CT Scan: Image personally visualized and interpreted and Report Reviewed by me
Labs: Labs Reviewed by me
[2023-04-08 17:25] VITALS: BP 156/74
[2023-04-08] MEDS: LIPITOR 80 MG PO (17:50)
[2023-04-08 17:54] LABS: Glucose - Point of Care 113 mg/dl (70-99)
--- NOTE | 2023-04-08 18:24 | PTCARENOTE ---
pt continues to be SR/ST on the monitor, HR in the 90s-100, VSS. Pt c/o being anxious for surgery tomorrow, notified Nicholas Bridges ordered. Pt has been ambulating in the room with RW X1 and tolerating well. Heparin gtt and nitro gtt running
per protocol, see documentation. pt educated on plan of care for the evening and pt verbalized understanding. call rossi within reach.
[2023-04-08 18:34] LABS: APTT 68.9 Sec (23.4-35.0)
[2023-04-08 19:52] VITALS: BP 130/85
[2023-04-08 21:00] LABS: Glucose - Point of Care 150 mg/dl (70-99)
[2023-04-08 22:19] VITALS: BP 132/74
[2023-04-08] MEDS: ATIVAN 0.25 MG PO (22:20)
--- NOTE | 2023-04-08 23:10 | PTCARENOTE ---
Addendum entered by Mark Hopkins RN 04/08/23 23:20:
Pt also clipped per protocol.
Original Note:
Pt received start of shift, HR SR/ST 90s-100s. Heparin infusing at 1600units/hr, nitro infusing at 20mcg/kg/min per protocol. Reinforced NPO at 0000 with pt, pt states understanding. Pt denies any pain, SOB, or lightheadedness/dizziness at this
time. Informed to notify RN if any changes, call rossi within reach.
First CVOR prep completed: Pt bathed with CHG soap, linens changed, new gown on pt, new BP cuff in room. Pt states no questions about procedure.
[2023-04-09] VITALS (14 sets, daily range): BP systolic 94–166; BP diastolic 44–92; BMI 43.4
[2023-04-09 02:33] LABS: APTT 105.7 Sec (23.4-35.0)
[2023-04-09 03:23] LABS: Carbon Dioxide 25 mmol/L (22-30)
[2023-04-09 03:31] LABS: ALT (SGPT) 23 U/L (0-35); AST (SGOT) 29 U/L (14-36); Albumin 3.4 g/dl (3.5-5.0); Alkaline Phosphatase 63 U/L (38-126); Blood Urea Nitrogen 16 mg/dl (7-17); Calcium 8.6 mg/dl (8.4-10.2); Chloride 107 mmol/L (98-107); Estimated Creatinine Clearance 119 ml/min; Glucose 150 mg/dl (70-99); Potassium 3.5 mmol/L (3.5-5.1); Sodium 138 mmol/L (135-145); Total Bilirubin 0.7 mg/dl (0.2-1.3); Total Protein 5.5 g/dl (6.3-8.2); eGFR > 60.00
[2023-04-09] MEDS: KCL 40 MEQ PO (04:26)
[2023-04-09] MEDS: MAGNESIUM OXIDE 500 MG PO (06:07)
[2023-04-09] MEDS: PROTONIX 40 MG PO (06:07)
[2023-04-09] MEDS: LOPRESSOR 25 MG PO (06:07)
[2023-04-09] MEDS: BACTROBAN 2% OINTMENT 1 APPLIC NASAL ×2 (06:08→19:42)
--- NOTE | 2023-04-09 06:17 | W.CVOR.SURPR ---
CVOR Surgeon Immed Pre Op
-
CARDIAC SURGERY ATTENDING:
I have examined this patient prior to performance of the scheduled procedure.
The patient's condition is unchanged from the time of the dictated/written History and
Physical and the patient is able to undergo the scheduled procedure.
I had a long conversation at bedside with Mrs. Garrison and her sisters yesterday. We discussed her pathology, the proposed operative interventions, the associated operative risks (including, but not limited to, , stroke, DC, arrhythmia, PNA,
SYLVIE/F, infection/poor wound healing, and bleeding), the expected in-hospital postoperative course, and the expected outpatient recovery. All questions were answered to the best of my abilities. Pt. agreeable to proceed. I anticipate CABG x 3-6
utilizing CRISS and GSV w/ grafts to LAD, OM2, RPLB; and potential grafts to RI, D2, and RPDA.
--- NOTE | 2023-04-09 06:58 | PTCARENOTE ---
2nd round of CVOR prep completed. Pt bed bath with CHG soap, new linens, new gown, new BP cuff. Pt wiped down with CHG wipes. 0600 meds given. Heparin and nitro stopped clearing distribution clerk to CVOR.
Pt's morning K 3.5, Tsilina CV PA notified, 40meq potaassium replacement ordered and administered.
[2023-04-09 07:34] LABS: ACT+ - POC 85 Seconds (82-134)
[2023-04-09 07:35] LABS: B.E. - POC -2.1 mmol/L; Glucose - POC 152 mg/dl (65-99); HCO3 - POC 22 mmol/L (21-29); Hematocrit - POC 36 % PCV (37-47); Hemodilution- POC Yes; Hemoglobin Calculated - POC 12.2; Ionized Calcium - POC 1.09 mmol/L (1.12-1.27); O2 Saturation %Calculated-POC 99.4 5 (92-96); PCO2 - POC 34 mmHg (35-45); PO2 - POC 152 mmHg (80-100); Potassium - POC 3.6 mmol/L (3.6-5.0); Sodium - POC 139 mmol/L (135-145); pH - POC 7.42 (7.35-7.45)
[2023-04-09 07:38] LABS: Urine Albumin Trace (Neg - Trace); Urine Bilirubin Negative (Negative); Urine Character Clear (Clear); Urine Color Yellow; Urine Glucose 3+ (Negative); Urine Ketone Trace (Negative); Urine Leukocyte Negative (Negative); Urine Nitrite Negative (Negative); Urine Occult Blood Trace (Negative); Urine Urobilinogen Negative (Neg - 1+)
[2023-04-09 07:55] LABS: Urine Bacteria Moderate (Negative); Urine White Cell 0-2 /HPF (0-5)
[2023-04-09 08:07] LABS: Urine Squamous Cell 16-20 /LPF (Few)
--- NOTE | 2023-04-09 08:08 | CM ---
Reviewed chart. Ms. Garrison is in the operating room today. Prior to admission she resides with her two sisters in a two story home with two steps to enter. She has a stair glide to get to the second floor. Prior to admission she she ambulates
with a single point cane and is independent in ADL's. She has a stair glide and single point cane at home. She has a prescription plan. Medical work-up in progress. She will need pre-cert with her insurance if inpatient rehab. is indicated. The
discharge plan is to return home with her sisters and a home visit by the Cardiothoracic Transitional Care Nurse versus some level of inpatient rehab. if indicated when medically stable.
--- NOTE | 2023-04-09 08:38 | PN.DE.MGMTRT ---
Insulin Management
- -
04/07/2023: Diabetes Management Consult:
68 year old female admitted with chest pain due to ACS/NSTEMI. PMH includes: CAD, GALLO, HTN, Hypercholesterolemia, Chronic back pain, Morbid obesity and New Dx T2DM, A1C 8.9%. States she is familiar with DM from her sister who is battling cancer and
recent dx of T2DM.
Current DM regimen includes low corrective insulin. FBG 188 this AM, premeal 152-155.
Will start Metformin 500mg BID, Glipizide 5mg BID and Jardiance 10mg daily (cost $40/mth)
Cont low corrective insulin. Discussed plan of care with pt. Will reassess in am if she will need HS Lantus.
Pt declined glucose meter instructions at this time, states she has had a lot of information today and would like to receive instructions tomorrow when her other 2 sisters are here.
04/08/2023 Diabetes Management Follow up
Patient off the unit for testing. I spoke with CT PAs and patient nurse. Fasting glucose 168, will resume Jardiance 10 mg daily and glipizide 5 mg daily first dose when patient returns from testing. Patient for OR tomorrow, will follow.
04/09/2023 Patient for OR today. Will follow.
Diabetes History
- -
Type of Diabetes: 2
Pre-Admission Diabetes Regimen
04/09/23
02:08
Creatinine 0.5 L
Lab Results
Hemoglobin A1c 8.9 % (4.0-5.6) H 04/06/23 18:02
Insulin Pump Settings
IP Diabetes Regimen
04/08/23 04/08/23 04/08/23
12:28 17:53 20:59
Glucose
POC Glucose 144 H 113 H 150 H
04/09/23
02:08
Glucose 150 H
POC Glucose
Meal type: Lunch
Meal type: Breakfast
Amount consumed: 85%
Amount consumed: 100%
Patient Education
[2023-04-09 10:04] LABS: ACT+ - POC 551 Seconds (82-134)
[2023-04-09 10:30] LABS: B.E. - POC -0.9 mmol/L; Glucose - POC 144 mg/dl (65-99); HCO3 - POC 25 mmol/L (21-29); Hematocrit - POC 27 % PCV (37-47); Hemodilution- POC Yes; PCO2 - POC 46 mmHg (35-45); PO2 - POC 451 mmHg (80-100); Potassium - POC 4.5 mmol/L (3.6-5.0); Sodium - POC 138 mmol/L (135-145); pH - POC 7.34 (7.35-7.45)
[2023-04-09 10:32] LABS: ACT+ - POC 518 Seconds (82-134)
[2023-04-09 11:01] LABS: ACT+ - POC 514 Seconds (82-134)
[2023-04-09 11:01] LABS: B.E. - POC -1.3 mmol/L; Glucose - POC 160 mg/dl (65-99); HCO3 - POC 24 mmol/L (21-29); Hematocrit - POC 28 % PCV (37-47); Hemodilution- POC Yes; Hemoglobin Calculated - POC 9.4; Ionized Calcium - POC 1.06 mmol/L (1.12-1.27); O2 Saturation %Calculated-POC 99.9 5 (92-96); PCO2 - POC 40 mmHg (35-45); PO2 - POC 351 mmHg (80-100); Potassium - POC 4.7 mmol/L (3.6-5.0); Sodium - POC 139 mmol/L (135-145); pH - POC 7.38 (7.35-7.45)
[2023-04-09] MEDS: LOW STRENGTH ASPIRIN PO (11:11)
[2023-04-09] MEDS: LOPRESSOR PO (11:11)
[2023-04-09] MEDS: NOVOLOG FLEXPEN-LOW RESISTANCE SC ×2 (11:11→11:12)
[2023-04-09] MEDS: JARDIANCE PO (11:11)
[2023-04-09] MEDS: GLUCOTROL PO (11:11)
--- NOTE | 2023-04-09 11:17 | PTCARENOTE ---
ABG reviewed with CTPA. ASSOCIATE DIRECTOR REGULATORY AFFAIRS at bedside, pt extubated to midflow NC 15L. IS encouraged. POX 98-100%.
[2023-04-09 11:29] LABS: B.E. - POC -1.6 mmol/L; Glucose - POC 160 mg/dl (65-99); HCO3 - POC 24 mmol/L (21-29); Hematocrit - POC 28 % PCV (37-47); Hemodilution- POC Yes; Hemoglobin Calculated - POC 9.7; Ionized Calcium - POC 1.03 mmol/L (1.12-1.27); O2 Saturation %Calculated-POC 99.9 5 (92-96); PCO2 - POC 42 mmHg (35-45); PO2 - POC 260 mmHg (80-100); Potassium - POC 4.7 mmol/L (3.6-5.0); Sodium - POC 139 mmol/L (135-145); pH - POC 7.36 (7.35-7.45)
[2023-04-09 11:33] LABS: ACT+ - POC 520 Seconds (82-134)
[2023-04-09 11:57] LABS: B.E. - POC -1.8 mmol/L; Glucose - POC 166 mg/dl (65-99); HCO3 - POC 24 mmol/L (21-29); Hematocrit - POC 29 % PCV (37-47); Hemodilution- POC Yes; Hemoglobin Calculated - POC 9.8; Ionized Calcium - POC 1.06 mmol/L (1.12-1.27); O2 Saturation %Calculated-POC 99.9 5 (92-96); PCO2 - POC 43 mmHg (35-45); PO2 - POC 355 mmHg (80-100); Potassium - POC 4.6 mmol/L (3.6-5.0); Sodium - POC 141 mmol/L (135-145); pH - POC 7.35 (7.35-7.45)
[2023-04-09 11:58] LABS: ACT+ - POC 483 Seconds (82-134)
[2023-04-09 12:15] LABS: ACT+ - POC 530 Seconds (82-134)
[2023-04-09 12:25] LABS: B.E. - POC -1.7 mmol/L; Glucose - POC 176 mg/dl (65-99); HCO3 - POC 24 mmol/L (21-29); Hematocrit - POC 29 % PCV (37-47); Hemodilution- POC Yes; Hemoglobin Calculated - POC 9.8; Ionized Calcium - POC 1.07 mmol/L (1.12-1.27); PCO2 - POC 44 mmHg (35-45); PO2 - POC 389 mmHg (80-100); Potassium - POC 4.7 mmol/L (3.6-5.0); Sodium - POC 141 mmol/L (135-145); pH - POC 7.34 (7.35-7.45)
[2023-04-09 12:29] LABS: ACT+ - POC 500 Seconds (82-134)
[2023-04-09] MEDS: ZINACEF 1500 MG IV ×2 (12:31)
[2023-04-09] MEDS: STERILE WATER FOR INJECTION 16 ML IV ×2 (12:31)
[2023-04-09 13:07] LABS: ACT+ - POC 98 Seconds (82-134)
[2023-04-09 13:08] LABS: B.E. - POC -4.9 mmol/L; Glucose - POC 154 mg/dl (65-99); HCO3 - POC 21 mmol/L (21-29); Hematocrit - POC 27 % PCV (37-47); Hemodilution- POC Yes; Hemoglobin Calculated - POC 9.1; Ionized Calcium - POC 1.24 mmol/L (1.12-1.27); PCO2 - POC 39 mmHg (35-45); PO2 - POC 75 mmHg (80-100); Potassium - POC 3.9 mmol/L (3.6-5.0); Sodium - POC 143 mmol/L (135-145); pH - POC 7.33 (7.35-7.45)
[2023-04-09] MEDS: PEPCID IV (14:00)
[2023-04-09] MEDS: NOVOLOG FLEXPEN SC ×2 (14:00→17:00)
[2023-04-09] MEDS: TYLENOL PO ×3 (14:11→19:42)
--- NOTE | 2023-04-09 14:40 | W.IMMPOSTOP ---
Surgical Immed Post Op Note
-
Dictated: [id number]
CARDIAC SURGERY OPERATIVE NOTE:
Preoperative Dx:
NSTEMI
Multivessel CAD
Poorly controlled DM
Obesity (BMI 43.4)
Postoperative Dx:
Same
Procedures:
1) Median sternotomy
2) Takedown of CRISS (narrow pedicle)
3) Endoscopic harvest/prep of B/L LE GSV
4) CABG x 6 (CRISS to LAD, GSV to D2, sGSV to RI/OM2, sGSV to PDA/RPLB)
Surgeon:
Mp Haque M.D.
Assistants:
Kenyatta Spencer P.A.-C.; nurse first assist throughout, endoscopic harvest/prep of B/L LE GSV
Hilario RahmanCKale; assisted w/ endoscopic harvest/prep of B/L LE GSV, nurse first assist for 2/6 distal anastomoses, closure of B/L LE GSV harvest incisions
Anesthesia:
Ovi Ureña M.D. and Hammad PetersonN.AKale
Perfusion:
Kinsey Dominique C.C.P.; XC: 102min, CPB: 147min
Findings:
CRISS was healthy appearing vessel w/ ELD 2.5mm, very brisk flow
GSV was healthy appearing conduit w/ ELD 3.5mm
LAD was visible on epicardial surface w/ [id number] scattered calcifications throughout, anastomosis at midpoint, ELD 2.0mm
D2 was visible on epicardial surface w/ moderate scattered calcifications throughout, ELD 2.5mm
RI was visible on epicardial surface w/ moderate scattered calcifications throughout, ELD 2.5mm
OM2 was visible on epicardial surface w/ [id number] scattered calcifications proximally, then very shallow (<0.5mm) intramyocardial segment, ELD 2.5mm
PDA was visible on epicardial surface w/ mild calcifications, ELD 2.25mm
RPLB was visible on epicardial surface w/ mild scattered calcifications but slightly stiff eason, ELD 2.5mm
There was excellent flow in all grafts on intraoperative U/S assessment
There was brisk backbleeding from the sGSV to RI/OM2 that was used to de-air the ascending aorta prior to removal of partial clamp
Post-JUSTUS: Normal biventricular function w/ LVEF 65, mild MR, mild TR (unchanged from preop)
Implants:
CT x 4
Sternal wires x 7
Sternal 'X' plate w/ 8 - 14mm screws
Sternal 'Square' plate w/ 4 - 12mm screws
Complications:
None
Transfusions:
None
Condition:
Stable/guarded to CVICU
[2023-04-09 14:46] LABS: Glucose - Point of Care 201 mg/dl (70-99)
[2023-04-09 14:52] LABS: B.E. -3.1 mmol/L; HCO3 22.7 mmol/L (21-28); Hematocrit 29.6 % (37.0-47.0); Hemoglobin 10.2 g/dL (12.0-16.0); Ionized Calcium 1.16 mMOL/L (1.15-1.33); PCO2 43 mmHg (32-35); PO2 129 mmHg (83-108); Platelet Count 224 10^3/uL (130-400); Potassium 4.5 mMOL/L (3.5-5.1); Sodium 138 mMOL/L (136-145); pH 7.33 (7.35-7.45)
[2023-04-09] MEDS: NSS (PRESERVATIVE FREE) IV (15:00)
[2023-04-09] MEDS: NSS 500 IV (15:01)
[2023-04-09 15:02] LABS: INR 1.32; PT 16.5 Sec (11.4-14.6)
[2023-04-09 15:03] LABS: APTT 36.9 Sec (23.4-35.0)
--- NOTE | 2023-04-09 15:12 | PTCARENOTE ---
Patient received from CVOR. Patient is nonresponsive s/p anesthesia. Unable to assess orientation and muscle strength grading. Pupils 5mm sluggish. RASS -4. CPOT 0. NSR/ST with first degree heart block. HR 90s-100s. Distant heart tones with slight
rub auscultated. No wires. L radial a-line maintained. BP 120s-140s/70s. RIJ cordis and swan maintained at 47cm. PA pressures 30s-40s/10s-20s. CVP 12-13. CO 3.97, CI 1.75, SVR 1611. Lines leveled/zeroed. [employer] agency service representative connected
patient to JAMB CUTTER monitor. CO 5.0, CI 2.2, SVR 1200. Levo gtt received at 2mcgs/min then quickly titrated off r/t SBP 140s. Dobutamine gtt received at 2mcgs/kg/min. Precedex gtt received at 0.5mcgs/kg/hr. Insulin gtt received at 1 unit/hr. Cordis and
VIP KVOs maintained. PIV x2 maintained. Palpable radial pulses, doppler dorsalis pedal pulses. +1 ankle edema. 8.0 ETT, 21 at the lip. Ventilator settings: SIMV. RR 12, TV 600, PEEP 5, FiO2 60%. Oxygen saturation 99%. Mouth care provided. Upon
auscultation, bilateral anterior breath sounds are diminished. CTx4 maintained to -20cm wall suction. MS CTx2 have small red drainage. Bilateral pleural CTs have small red drainage. Abdomen round, obese. Hypoactive BS. Sousa maintained with
adequate, yellow UOP. Sousa care provided. Assist x2 to turn/reposition. Complete bedrest s/p CVOR. Sternal aquacell is clean, dry, intact. CT dressing is clean, dry, intact. R groin puncture site is approximated with surgical adhesive and open to
air. L groin puncture site is approximated with surgical adhesive and open to air. R knee incision is covered by fletcher bandage, which is clean, dry, intact. L knee incision is covered by fletcher bandage, which is clean, dry, intact. Will continue to
monitor.
--- NOTE | 2023-04-09 15:30 | W.PN.CD ---
Addendum entered and electronically signed by Mundo Toledo MD 04/09/23 16:04:
I saw and examined the patient.
The RESIDENTIAL LIVING ASSISTANT's note was reviewed and I agree with the note.
Comment: 68 y/o female who presented with CP and was discovered to have multi-vessel CAD is now s/p CABG.
- once weaned off gtts will continue beta vito, fletcher-i/arb, statin as able
- for DM2 would prefer sglt2i
Original Note:
Today's Communication / Plan
-
Close post-op monitoring and care with weaning of drips and vent per CT surgery/CVICU protocol
Impression / Plan
-
Assessment/Plan: 68 y/o female who presented with CP and was discovered to have multi-vessel CAD is now s/p CABG.
ACS/multivessel CAD:
-now s/p CABG x 6 (CRISS to LAD, GSV to D2, sGSV to RI/OM2, sGSV to PDA/RPLB), Dr. Haque 04/09/23
-intra-op JUSTUS: LVEF 55-60%
-post op EKG and tele with SR
-remains intubated with CT's, lua in place
-remains on dobutamine
�
Dyslipidemia:
-LDL 141
-continue statin
DM2:
-on insulin gtt post-op
-diabetic RESIDENTIAL LIVING ASSISTANT on consult and assisting with management
Physical Exam
Vital Signs/Labs
Vital Signs
Temp Pulse Resp BP Pulse Ox
95.9 F L 94 19 156/87 99
04/09/23 15:00 04/09/23 15:00 04/09/23 15:00 04/09/23 06:07 04/09/23 15:00
04/08/23 04/09/23 04/10/23
06:59 06:59 06:59
Actual Weight 123.7 kg 121.9 kg
PT 16.5 Sec (11.4-14.6) H 04/09/23 14:45
INR 1.32 04/09/23 14:45
APTT 36.9 Sec (23.4-35.0) H 04/09/23 14:45
Magnesium 2.0 mg/dl (1.6-2.3) 04/09/23 02:08
Triglycerides 492 mg/dl (10-149) H 04/07/23 03:51
LDL Cholesterol, Calc mg/dl 04/07/23 03:51
VLDL Cholesterol, Calc mg/dl (0-30) 04/07/23 03:51
HDL Cholesterol 43 mg/dl 04/07/23 03:51
04/06/23
19:00
Dyo-G-Jhttkylpcju Pept 236
LAB Results
04/06/23 04/06/23 04/07/23
18:02 19:00 01:13
Troponin I Cancelled 0.765 H* 15.300 H* D
04/07/23 04/07/23
03:51 06:31
Troponin I 14.700 H* Cancelled
Physical Exam
Constitutional: No acute distress
Cardiovascular: Rhythm & rate is regular
Respiratory: Other (intubated and ventilated )
Neuro/Psych: Other (intubated/sedated)
Other: Skin (mid chest dressing CDI)
Data Reviewed
-
Date of Service: April 09, 2023
EKG: Tracing Personally Visualized and interpreted (SR with NS ST abnormalities)
Labs: Labs Reviewed by me
[2023-04-09 15:32] LABS: Blood Urea Nitrogen 15 mg/dl (7-17); Estimated Creatinine Clearance 118 ml/min; Glucose 203 mg/dl (70-99); Magnesium 2.7 mg/dl (1.6-2.3)
--- NOTE | 2023-04-09 15:40 | PTCARENOTE ---
Monitor is alarming that patient has ST elevations. CT PA notified and said it was present in the CVOR. RN asked if another EKG should be obtained. Dr. Haque and CTPAs at bedside, assessing patient. Dr. Haque says it is related to pericarditis,
was seen in the CVOR. No intervention at this time.
[2023-04-09 16:05] LABS: Glucose - Point of Care 165 mg/dl (70-99)
--- NOTE | 2023-04-09 16:05 | CON.INTV ---
Consultation
Consultation Request
Date/Time Consultation Requested: 04/09/2023 - 1317
Date/Time Consultation Performed: 04/09/2023 - 1339
Requesting Provider: Ryan Steen PA-C
Performing Provider: Dr. Bowen
Reason for Consultation: s/p CABG
Medical History
-
Chief Complaint: Chest/Back pain
History of Present Illness:
68-year-old morbidly obese female with a past medical history of back pain, CAD and HTN/HLD presented with chest pain and back pain for several weeks which suddenly worsened. Chest pain worsened with activity and improved with rest. The chest pain
had not improved with rest on the day of admission so she came to the ER. Initial EKG showed sinus tachycardia with subtle ST depressions in the lateral leads. Initial troponin was 0.765, and heparin drip was started and she was also given aspirin
and cardiology consulted. An echocardiogram showed moderate concentric LVH with normal LV systolic function. Given concern for ACS, cardiology performed a left heart catheterization on 04/07 which showed extremely severe triple-vessel CAD with 60%
left main coronary artery stenosis. Inpatient CABG was recommended and cardiothoracic surgery was consulted. Today patient underwent CABG X6. She has [address] and sternal wires X7. There were no immediate complications and she was
transferred to the CVICU for further care. Pulmonary/critical care services now consulted for additional management/recommendations.
When I saw the patient she was still intubated on SIMV at 40%, PEEP 5. Left radial A-line showed a BP of 113/69, PAP was 37/16. She is on insulin drip at 6 units/h, and dobutamine at 2mcg/kg/min. She has a right and left pleural chest tube with 2
mediastinal chest tubes. She does awaken but she is still fairly lethargic. I discussed her case with the bedside RN.
PMHx: CAD, hypertension, hypercholesterolemia, morbid obesity
PSHx: Back surgery
Past Medical History
Past Medical History: Other (Above as per HPI)
Past Surgical History: Other (Above as per HPI)
Social History
Tobacco: Non-smoker
Alcohol: None
Drug: None
Living: With Family
Family History
Family History: CAD, Hypertension and Other (F: heart failure)
Allergies / Home Medications
Allergies
Allergy/AdvReac Type Severity Reaction Status Date / Time
No Known Allergies Allergy Unverified 04/06/23 17:26
Home Medications
Medication Instructions Recorded Confirmed Last Taken Type
aspirin 81 mg tablet,delayed 162 mg PO ONCE Blood Clot 04/06/23 04/06/23 04/06/23 History
release Prevention/Tx
ibuprofen 200 mg tablet (Advil) 200 mg PO Q6H PRN MILD PAIN 04/06/23 04/06/23 04/06/23 History
Review of Systems
-
Unable to Obtain full review of systems at this time due to: Patient Intubation
Vitals / Labs / Diagnostic Testing
Vital Signs
Temp Pulse Resp BP Pulse Ox
95.9 F L 94 19 156/87 99
04/09/23 15:00 04/09/23 15:00 04/09/23 15:00 04/09/23 06:07 04/09/23 15:00
Lab Data
04/09/23 14:45
Laboratory Results
04/08/23 04/08/23 04/09/23
17:55 18:13 02:08
PT
INR
APTT Cancelled 68.9 H 105.7 H
pH
pCO2
pO2
HCO3
O2 Delivery Level
04/09/23
14:45
PT 16.5 H
INR 1.32
APTT 36.9 H
pH 7.33 L
pCO2 43 H
pO2 129 H
HCO3 22.7
O2 Delivery Level
Diagnostic Testing:
Physical Exam
-
HEENT: Normocephalic and Anicteric
Cardiovascular: S1/S2, Murmur, Rub and Peripheral Edema (negative)
Respiratory: Clear, Wheeze (negative), Rales (negative), Rhonchi (negative), Other (mechanical breath sounds b/l) and Other (chest tubes x4 (pleural x2 + mediastinal x2))
GI: Soft, Non Distended and Non Tender
Neurology: Awake and Alert
Skin: Warm and Dry
General: Comfortable
Assessment
-
Assessment: 68-year-old female with past medical history of back pain presented with chest pain and back pain for several weeks which suddenly worsened. Chest pain worsened with activity and improved with rest. The chest pain had not improved
with rest on the day of admission so she came to the ER. Initial EKG showed sinus tachycardia with subtle ST depressions in the lateral leads. Initial troponin was 0.765, and heparin drip was started and she was also given aspirin and cardiology
consulted. An echocardiogram showed moderate concentric LVH with normal LV systolic function. Given concern for ACS, cardiology performed a left heart catheterization on 04/07 which showed extremely severe triple-vessel CAD with 60% left main
coronary artery stenosis. Inpatient CABG was recommended and cardiothoracic surgery was consulted. Today patient underwent CABG X6. She has [address] and sternal wires X7. There were no immediate complications and she was
transferred to the CVICU for further care. Pulmonary/critical care services now consulted for additional management/recommendations.
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
Impression:
#NSTEMI s/p CABG x6 (POD#0)
#Hyperglycemia
#Acute hypoxemic respiratory failure due to acute decompensated heart failure
#Abnormal chest x-ray with pulmonary vascular congestion concerning for acute decompensated heart failure/acute HFpEF
#Morbid obesity (BMI: 43.4)
Plan:
Ventilator settings reviewed
FiO2 will be weaned
Minute ventilation will be adjusted
Arterial blood gases will be monitored
Spontaneous breathing trial will be attempted with hopeful extubation after anesthesia/sedation wear off
Before extubating, would give dose of lasix (20-40mg IVP x1) and during wean, would drop PEEP to 0. This is fairly equivalent to T-piece as we want to test the patient's ability to oxygenate without the ventilator's assistance in reducing pre-load,
mainly because she is in acute decompensated heart failure. If she weans well on PS 5, peep of 0 for 30 mins or more with adequate blood gas and remains HDN stable with SpO2 >90-94%, then would extubate to BiPAP 12/5 x 1 hr, then place onto nasal
cannula.
Monitor I/O, and once she starts to eat would give low sodium, fluid restricted diet
Pulmonary artery catheter parameters will be followed
Pressors/antihypertensive/inotropes/diuretics will be provided as needed
Maintain MAP>65
Maintain CO: 4-8
Monitor chest tube output
Monitor hemoglobin
Monitor platelet count and coags
Transfuse blood product if needed
CT surgery managing chest tubes x4
Monitor blood sugar with goal BG 140-180
Insulin drip per protocol
Aspiration precautions
VAP prevention protocol
DVT prophylaxis
Early nutrition
Early mobilization
Critical care statement: A total of 46 minutes of critical care time was provided for this patient today. This includes management of ventilator, spontaneous breathing trial, arterial blood gases, pressors, of unstable vital signs, evaluation of the
patient at bedside, reviewing the patient's pertinent medical records including radiographs, microbiology, laboratory evaluations, and discussion with primary team and critical care nursing.
Data:
CXR 04-09-2023:
Mild cardiomegaly. New.
Prominence of the central vasculature concerning for CHF. Findings partially due to limited inspiration cannot be excluded.
[2023-04-09] MEDS: PACERONE PO ×2 (16:11→23:32)
[2023-04-09] MEDS: PRECEDEX 100 IV (16:14)
[2023-04-09 17:07] LABS: Glucose - Point of Care 189 mg/dl (70-99)
[2023-04-09] MEDS: CALCIUM CHLORIDE 10% SYRINGE 50 ML IV (17:51)
[2023-04-09] MEDS: CALCIUM CHLORIDE 10% SYRINGE 50 MG IV (17:51)
[2023-04-09 18:05] LABS: Glucose - Point of Care 156 mg/dl (70-99)
--- NOTE | 2023-04-09 18:08 | PTCARENOTE ---
CT PA came in to check on patient. Patient woke up and lifted her arms up. When attempting to orient her, she nodded like she understood. She would squeeze hands bilaterally upon command, then would get too agitated to wiggle her toes. Instead, she
vagaled - her HR dropped down to 50s and her BP down to 60s/40s. She quickly recuperated on her own with no intervention. 1g CaCl administered as a secondary (over 1hr) to replete ical.
[2023-04-09 18:32] LABS: Hematocrit 30.1 % (37.0-47.0); Hemoglobin 10.4 g/dL (12.0-16.0); Platelet Count 231 10^3/uL (130-400)
--- NOTE | 2023-04-09 19:00 | PTCARENOTE ---
bedside report received from previous RN. pt in bed, intubated and sedated s/p CVOR. pt wakes up for brief periods, follows commands, VENTURA, pupils equal and reactive, pt denies any pain. Precedex gtt infusing @ 0.4mcg, weaned to 0.2mcg for vent
weaning. vent set to SIMV 12/600/5/5/40%. B/L breath sounds present. POX 96%. suctioned pt for thick clear secretions. CT x4 intact to -20cm wall suction, drainage WNL, no air leak present. ST on monitor, HR 100's-120's. B/L radial pulses palpable.
B/L DP pulses present w doppler. heart tones audible, +rub. RIJ cordis and swan intact w KVOs infusing. left radial art line intact. last CI 1.78. Dobut gtt infusing @ 2mcg. SBP 90's-110's. lua catheter intact, draining clear yellow urine, UO
adequate. hypoactive bowel sounds present. pt denies nausea. insulin gtt infusing per glycemic protocol. all surgical sites stable. pt washed, mouth care and lua care provided. turning pt Q2H and as needed. see worklist for full assessment, VS,
and interventions. pt resting comfortably.
[2023-04-09 19:15] LABS: Glucose - Point of Care 140 mg/dl (70-99)
[2023-04-09] MEDS: SENOKOT-S PO (19:42)
[2023-04-09] MEDS: NSS (PRESERVATIVE FREE) 8 ML IV (19:48)
[2023-04-09] MEDS: STERILE WATER FOR INJECTION 8.30000000000000071 ML IV (19:49)
[2023-04-09] MEDS: PEPCID 20 MG IV (19:49)
[2023-04-09] MEDS: ZINACEF 750 MG IV (19:49)
[2023-04-09] MEDS: ASPIRIN 300 MG RECTAL (19:59)
[2023-04-09] MEDS: ALBUMIN 5% 250 IV (20:12)
[2023-04-09 20:49] LABS: Mixed Venous O2 Saturation 56.8 %
[2023-04-09 20:55] LABS: Glucose - Point of Care 144 mg/dl (70-99)
--- NOTE | 2023-04-09 22:15 | RESPNOTE ---
PT was placed on a CPAP weaning trial 06/27 at this time as requested and is tolerating well. Volumes and vitals are acceptbale, will conitnue to monitor and sned an ABG in 30 minutes to possibly extubate.
[2023-04-09] MEDS: OFIRMEV 100 IV (22:29)
[2023-04-09] MEDS: ZOFRAN 4 MG IV (22:30)
[2023-04-09 22:46] LABS: Glucose - Point of Care 146 mg/dl (70-99)
[2023-04-09 22:50] LABS: B.E. -2.6 mmol/L; HCO3 22.6 mmol/L (21-28); Ionized Calcium 1.23 mMOL/L (1.15-1.33); O2 Saturation % 96.7 % (94-98); PCO2 40 mmHg (32-35); PO2 72 mmHg (83-108); Potassium 4.4 mMOL/L (3.5-5.1); pH 7.36 (7.35-7.45)
--- NOTE | 2023-04-09 23:00 | PTCARENOTE ---
pt VSS, no acute changes in assessment. currently on cpap trial on vent, awaiting ABG results. POX 95%. ST on monitor, HR 110's. art SBP 110's. last CI 2.23. Dobut gtt maintained @ 2mcg. Insulin gtt maintained per protocol. CT output and UO WNL. all
surgical sites stable. PRN Zofran given for nausea. one time dose Ofirmev given for sternal incision pain. pt resting between care.
--- NOTE | 2023-04-09 23:17 | RESPNOTE ---
PT was extubated at this time, upon receipt of acceptable ABG results. PT was placed on 15 L midflow cannula and instructed on deep breathing with I/S. Will continue to monitor resp status.
[2023-04-09] MEDS: LIPITOR PO (23:32)
[2023-04-09] MEDS: TORADOL 15 MG IV (23:32)
[2023-04-10] VITALS (27 sets, daily range): BP systolic 92–149; BP diastolic 47–97; BMI 44.8
[2023-04-10 00:11] LABS: Glucose - Point of Care 132 mg/dl (70-99)
[2023-04-10 00:58] LABS: Glucose - Point of Care 131 mg/dl (70-99)
[2023-04-10] MEDS: TYLENOL PO ×2 (00:58→05:22)
[2023-04-10 02:10] LABS: Glucose - Point of Care 115 mg/dl (70-99)
--- NOTE | 2023-04-10 03:00 | PTCARENOTE ---
pt assessment unchanged, VSS. SR/ST 90's-110's. SBP 110's-120's. Dobut gtt infusing @ 1mcg. last CI 1.97. POX 96% on 6LNC. CT output and UO WNL. all surgical sites stable. AM labs drawn and sent. EKG completed. pt resting between care.
[2023-04-10 03:12] LABS: Glucose - Point of Care 119 mg/dl (70-99)
[2023-04-10] MEDS: MORPHINE SULFATE 2 MG IV (03:32)
[2023-04-10] MEDS: STERILE WATER FOR INJECTION 8.30000000000000071 ML IV ×2 (03:33→13:00)
[2023-04-10] MEDS: ZINACEF 750 MG IV ×2 (03:33→13:00)
[2023-04-10 03:37] LABS: Hematocrit 25.5 % (37.0-47.0); Hemoglobin 8.9 g/dL (12.0-16.0); Mean Corp Hgb Conc. 34.9 g/dL (33.0-37.0); Mean Corpuscular Hgb 30.2 pg (27.0-31.0); Mean Corpuscular Volume 86.4 fL (81.0-99.0); Mean Platelet Volume 9.2 fL (7.4-10.4); Platelet Count 233 10^3/uL (130-400); Red Blood Cell Count 2.95 10^6/uL (4.20-5.40); Red Cell Dist. Width 13.6 % (11.5-14.5); White Blood Cell Count 10.6 10^3/uL (4.8-10.8)
[2023-04-10 03:59] LABS: Blood Urea Nitrogen 18 mg/dl (7-17); Calcium 8.2 mg/dl (8.4-10.2); Carbon Dioxide 24 mmol/L (22-30); Chloride 112 mmol/L (98-107); Estimated Creatinine Clearance 120 ml/min; Glucose 113 mg/dl (70-99); Magnesium 2.4 mg/dl (1.6-2.3); Potassium 4.3 mmol/L (3.5-5.1); Sodium 138 mmol/L (135-145); eGFR > 60.00
--- NOTE | 2023-04-10 05:08 | W.PN.CT ---
Today's Communication / Plan
-
-pod #1
-CI 2.8, CO 6.4. Drips: Dobut 1, Insulin
-CT output: 2 meds 80/170, 2 pleur 120/190 in 12/24 hrs
-wean off Dobut and deline
-continue insulin. Appreciated DM input
-d/c Sousa
-current meds (ASA, Amio, Lipitor, Lasix). Consider Plavix. Hold BB while on Dobut
-encourage IS, OOB
Assessment / Plan
-
- NSTEMI/mv-CAD - s/p CABG x 6 (CRISS to LAD, GSV to D2, sGSV to RI/OM2, sGSV to PDA/RPLB); b/l LE EVH by Dr. Haque on 04/09/23, pod #1
-Post-JUSTUS: Normal biventricular function w/ LVEF 65, mild MR, mild TR (unchanged from preop)
- HTN/HLD
- Class 3 obesity (BMI 43.4)
- DM II (HgA1c 8.9)
- Carotid stenosis: 50-69% on R and 70-99% on L
- Head/neck CTA 04/08/23:
NECK CTA: Moderate vascular calcification at the carotid bulb bilaterally. The carotid bulbs are in the midline at the level of the hyoid bone. Tortuous.
There is approximately 63% stenosis of the origin of the right internal carotid artery. There is a similar appearance to the origin of the left internal carotid artery however there is a higher grade stenosis within 1 cm of the origin measuring at
least 73% stenosis consistent with the ultrasound.
HEAD CTA: Patent capitan grande band of [place]. No filling defect. No focal stenosis or aneurysm.
- Elevated R hemidiaphragm
- Pre-existing 1st degree AV block
- Acute postop abnormal ECG
- Acute postop blood loss anemia
- Acute postop atelectasis
- Acute postop hypovolemia with subsequent hypervolemia
Discussed patient care with: Nursing and Care Team
Subjective
Procedure
�- s/p CABG x 6 (CRISS to LAD, GSV to D2, sGSV to RI/OM2, sGSV to PDA/RPLB); b/l LE EVH by Dr. Haque on 04/09/23
-
Date of Service: April 09, 2023
Objective Data
-
Lab Results
04/09/23 18:20
04/09/23 14:45
PT 16.5 Sec (11.4-14.6) H 04/09/23 14:45
INR 1.32 04/09/23 14:45
APTT 36.9 Sec (23.4-35.0) H 04/09/23 14:45
Vital Signs
Vital Signs
Temp Pulse Resp BP Pulse Ox
98.7 F 106 17 94/65 96
04/09/23 21:00 04/09/23 21:00 04/09/23 21:00 04/09/23 20:00 04/09/23 21:00
CT Intake/Output/Weight
04/09/23 04/09/23 04/10/23
06:59 18:59 06:59
Intake Total 343.1 / 762.2 419.1 / 762.2
Output Total 445 / 660 215 / 660
Balance -101.9 / 102.2 204.1 / 102.2
SaO2: 96
Physical Exam
-
General: Awake and AOx3
Cardiovascular: Regular rate & rhythm, No Murmurs and Rub
Respiratory: Decreased Breath Sounds
Sternum: Stable
Incision: Clean, Dry and Dressing Intact
Extremities: Edema +1 (DPs by Doppler b/l)
Data Reviewed
-
Lab Results: Results Reviewed
Medications: Active Meds Reviewed
Chest X-Ray: Report Reviewed and Image Reviewed
ECG: Report Reviewed and Image Reviewed
[2023-04-10 05:19] LABS: Glucose - Point of Care 118 mg/dl (70-99)
[2023-04-10 07:11] LABS: Glucose - Point of Care 112 mg/dl (70-99)
--- NOTE | 2023-04-10 07:19 | W.PN.ANS.POP ---
Anesthesia Post Operative
- Anesthesia Post Op Note
Vital Signs Stable-See Nursing Note: Yes (1mcg/kg/min dobutamine)
Airway Patent: Yes
Adequate Pain Control: Yes
Change in Mental Status: No
Current Postoperative Nausea & Vomiting: No
Anesthesia Complications: No
General Anesthetic Recall: No
Unplanned Admission: No
Post Op Hydration Adequate: Yes
[2023-04-10] MEDS: MAGNESIUM OXIDE 500 MG PO ×2 (08:05→19:42)
[2023-04-10] MEDS: TYLENOL 650 MG PO ×4 (08:06→19:42)
[2023-04-10] MEDS: PEPCID 20 MG IV (08:06)
[2023-04-10] MEDS: NSS (PRESERVATIVE FREE) 8 ML IV (08:06)
[2023-04-10] MEDS: PACERONE 200 MG PO ×4 (08:06→21:21)
[2023-04-10] MEDS: PLAVIX 75 MG PO (08:06)
[2023-04-10] MEDS: SENOKOT-S 1 TABLET PO ×2 (08:06→19:42)
[2023-04-10] MEDS: LOW STRENGTH ASPIRIN 81 MG PO (08:06)
[2023-04-10] MEDS: KCL 20 MEQ PO (08:06)
[2023-04-10] MEDS: LASIX 40 MG IV (08:07)
[2023-04-10] MEDS: LASIX PO (08:07)
[2023-04-10] MEDS: BACTROBAN 2% OINTMENT 1 APPLIC NASAL ×2 (08:07→19:43)
[2023-04-10 08:15] LABS: Glucose - Point of Care 114 mg/dl (70-99)
--- NOTE | 2023-04-10 08:29 | PTCARENOTE ---
assumed care of pt from previous shift RN, sinus tachycardia on tele w HR low 100's, + peripheral pulses, trace edema to bilateral upper and lower extremities, left radial marybel leveled and zeroed, bp 140/70, lungs diminished, pox 97% on 4L midflow,
96% on 2L midflow. Coughing and deep breathing encouraged. +bs, tolerating PO intake. Sousa catheter draining yellow, CTx4 w minimal amount of drainage. Right IJ cordis w swan floated to 47. Dobutamine off per MD orders, insulin gtt titrated per
glycemic protocol. Plan of care reviewed w the pt and questions encouraged.
--- NOTE | 2023-04-10 08:31 | PN.DE.MGMTRT ---
Insulin Management
- -
04/07/2023: Diabetes Management Consult:
68 year old female admitted with chest pain due to ACS/NSTEMI. PMH includes: CAD, GALLO, HTN, Hypercholesterolemia, Chronic back pain, Morbid obesity and New Dx T2DM, A1C 8.9%. States she is familiar with DM from her sister who is battling cancer and
recent dx of T2DM.
Current DM regimen includes low corrective insulin. FBG 188 this AM, premeal 152-155.
Will start Metformin 500mg BID, Glipizide 5mg BID and Jardiance 10mg daily (cost $40/mth)
Cont low corrective insulin. Discussed plan of care with pt. Will reassess in am if she will need HS Lantus.
Pt declined glucose meter instructions at this time, states she has had a lot of information today and would like to receive instructions tomorrow when her other 2 sisters are here.
04/08/2023: Diabetes Management Follow up
Patient off the unit for testing. I spoke with CT PAs and patient nurse. Fasting glucose 168, will resume Jardiance 10 mg daily and glipizide 5 mg daily first dose when patient returns from testing. Patient for OR tomorrow, will follow.
04/09/2023: Patient for OR today. Will follow.
04/10/2022: Diabetes Management F/U:
Pt POD # 1 s/p CABG x 6. Doing well, remains on glycemic protocol, glucose in range of 112 to 1323 requiring 3.5 to 5 units of insulin/hr
Cont Glycemic protocol today, plan to transition to oral regimen tomorrow.
Oral Diabetes regimen upon d/c of insulin drip: Metformin 500mg BID, Glipizide 5mg BID and Jardiance 10mg daily
Diabetes History
- -
Type of Diabetes: 2
Pre-Admission Diabetes Regimen
04/09/23 04/10/23
14:45 03:09
Creatinine 0.6 0.6
Lab Results
Hemoglobin A1c 8.9 % (4.0-5.6) H 02/12/24 18:02
Insulin Pump Settings
IP Diabetes Regimen
04/09/23 04/09/23 04/09/23
14:44 14:45 16:03
Glucose 203 H
POC Glucose 201 H 165 H
04/09/23 04/09/23 04/09/23
17:06 18:04 19:13
Glucose
POC Glucose 189 H 156 H 140 H
04/09/23 04/09/23 04/10/23
20:54 22:45 00:10
Glucose
POC Glucose 144 H 146 H 132 H
04/10/23 04/10/23 04/10/23
00:56 02:08 03:09
Glucose 113 H
POC Glucose 131 H 115 H
04/10/23 04/10/23 04/10/23
03:11 05:17 07:10
Glucose
POC Glucose 119 H 118 H 112 H
04/10/23
08:14
Glucose
POC Glucose 114 H
Patient Education
[2023-04-10] MEDS: NOVOLIN R INSULIN INFUSION 100 IV (09:06)
--- NOTE | 2023-04-10 09:26 | W.PN.INTV ---
Today's Communication / Plan
Recommendations
Up OOB as tolerated
Strict I's/O; low-sodium/fluid restricted diet
Diurese
Continue supplemental oxygen and maintain SpO2 >94%
Encourage incentive spirometer
Wean off insulin drip as per protocol
Supervisor [employer] service will follow along while patient remains CVICU status
Assessment
-
Assessment: 68-year-old female with past medical history of back pain presented with chest pain and back pain for several weeks which suddenly worsened. Chest pain worsened with activity and improved with rest. The chest pain had not improved
with rest on the day of admission so she came to the ER. Initial EKG showed sinus tachycardia with subtle ST depressions in the lateral leads. Initial troponin was 0.765, and heparin drip was started and she was also given aspirin and cardiology
consulted. An echocardiogram showed moderate concentric LVH with normal LV systolic function. Given concern for ACS, cardiology performed a left heart catheterization on 04/07 which showed extremely severe triple-vessel CAD with 60% left main
coronary artery stenosis. Inpatient CABG was recommended and cardiothoracic surgery was consulted. Today patient underwent CABG X6. She has [address] and sternal wires X7. There were no immediate complications and she was
transferred to the CVICU for further care. Pulmonary/critical care services now consulted for additional management/recommendations.
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
Impression:
#NSTEMI s/p CABG x6 (POD#1)
#Hyperglycemia - improved
#Acute hypoxemic respiratory failure due to acute decompensated heart failure
#Abnormal chest x-ray with pulmonary vascular congestion concerning for acute decompensated heart failure/acute HFpEF
#Morbid obesity (BMI: 43.4)
Plan:
Tolerated extubation
Wean supplemental flow rate to keep SpO2 >94%
Encourage incentive spirometry
Increase activity
Aspiration precautions
Pulmonary artery catheter and arterial line removed
Pressors have been weaned
Monitor I/O, and would give low sodium, fluid restricted diet
Continue to monitor output frm chest tubes x4
Follow hemoglobin
Continue to follow platelet count and coags
Transfuse blood product as needed
CT surgery managing chest tubes as well
Follow blood sugar with goal 140-180
Continue insulin gtt and wean as per protocol
Early nutrition
Early mobilization
DVT prophylaxis
[employer] service will follow along while patient remains CVICU status.
I personally reviewed the patient's pertinent medical records including radiographs, microbiology, laboratory evaluations, and discussion with primary team, and critical care nursing.
Critical care statement: A total of 41 minutes of critical care time was provided for this patient today. This includes management of ventilator, spontaneous breathing trial, arterial blood gases, pressors, of unstable vital signs, evaluation of the
patient at bedside, reviewing the patient's pertinent medical records including radiographs, microbiology, laboratory evaluations, and discussion with primary team and critical care nursing.
Data:
CXR 04-10-2023: Improving left pleural effusion and bibasilar atelectasis.
CXR 04-09-2023:
Mild cardiomegaly. New.
Prominence of the central vasculature concerning for CHF. Findings partially due to limited inspiration cannot be excluded.
Subjective Dataa
Subjective Data
Date of Service:
Date of Service: April 10, 2023
Chief Complaint: [employer] Follow Up
Subjective:
Patient seen this afternoon. She is doing well. Saturating 97% on 4 L/min nasal cannula. Right IJ cordis in place. Heart rate 110, BP 113/76. Chest tubes x [address] (mediastinal x 2; right and left pleural chest tubes). She remains on
insulin drip at 1.4 units/hr. She has mild postoperative chest discomfort, but denies shortness of breath, headache, abdominal pain, nausea, fevers or chills.
Review of Systems
General: Other (Negative unless mentioned above)
Objective Data
Data Reviewed
Vital Signs / I&O / Oxygen:
Vital Signs
Temp Pulse Resp BP Pulse Ox
98.4 F 98 20 106/58 97
04/10/23 07:00 04/10/23 09:15 04/10/23 09:15 04/10/23 09:00 04/10/23 09:15
Intake and Output
04/09/23 04/10/23 04/11/23
06:59 06:59 06:59
Intake Total 480 / 480 1317.4 / 1344.5 85.7 / 85.7
Output Total 1170 / 1230 90 / 90
Balance 480 / 480 147.4 / 114.5 -4.3 / -4.3
SaO2 [CPAP] 98
SaO2 [SIMV] 96
SaO2 97
Nasal Cannula flow liters per 4
minute
Physical Exam
General: Comfortable
HEENT: Normocephalic and Anicteric
Cardiovascular: Peripheral Edema (Negative) and Other (Tachycardic)
Respiratory: Clear, Wheeze (Negative), Crackles (Negative), Rhonchi (Negative) and Non-Labored Respirations
GI: Soft, Non Distended, Non Tender and Normal Bowel Sounds
Neurology: AO x 3 and Tremors (Negative)
Skin: Warm, Dry and Cyanosis (Negative)
Labs/Micro/Reports
Lab Data
04/10/23 03:09
04/10/23 03:09
Laboratory Results
04/09/23 04/09/23
14:45 22:45
PT 16.5 H
INR 1.32
APTT 36.9 H
pH 7.33 L 7.36
pCO2 43 H 40 H
pO2 129 H 72 L
HCO3 22.7 22.6
O2 Delivery Level
--- NOTE | 2023-04-10 09:27 | W.PN.CD ---
Addendum entered and electronically signed by David Chacko MD 04/10/23 14:43:
Doing OK POD1 after CABG x 6
Intermittently confused- likely due to pump run. Nonfocal exam
She has bilat ICA. 63% EVAN, 73% LICA. I will see her in office after recovery from CABG to discuss options including LCEA, L ARGELIA (Transfemoral or TCAR), monitoring for progression or enrollment into CREST 2 trial (which randomizes pts to revasc +
OMT VS OMT alone. She would be an ideal CREST 2 trial candidate unless she develops AF and needs OAT.
Original Note:
Today's Communication / Plan
-
continue medical therapy
Impression / Plan
-
Assessment/Plan: 68 y/o female who presented with CP and was discovered to have multi-vessel CAD is now s/p CABG.
ACS/multivessel CAD:
-now s/p CABG x 6 (CRISS to LAD, GSV to D2, sGSV to RI/OM2, sGSV to PDA/RPLB), Dr. Haque 04/09/23
-intra-op JUSTUS: LVEF 55-60%
-post op EKG and tele with SR
-denies pain, sob
-peak troponin 15.3, Plavix started today
-soft BP, monitor, holding BB for now
�
Dyslipidemia:
-LDL 141
-continue Lipitor 80mg daily
-goal LDL < 70
DM2:
-on insulin drip
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
-HgbA1C 8.9%
Post-op anemia - acute
-monitor
Physical Exam
Vital Signs/Labs
Vital Signs
Temp Pulse Resp BP Pulse Ox
98.4 F 98 20 106/58 97
04/10/23 07:00 04/10/23 09:15 04/10/23 09:15 04/10/23 09:00 04/10/23 09:15
04/09/23 04/10/23 04/11/23
06:59 06:59 06:59
Actual Weight 121.9 kg 125.8 kg
04/10/23 03:09
04/10/23 03:09
PT 16.5 Sec (11.4-14.6) H 04/09/23 14:45
INR 1.32 04/09/23 14:45
APTT 36.9 Sec (23.4-35.0) H 04/09/23 14:45
Magnesium 2.4 mg/dl (1.6-2.3) H 04/10/23 03:09
Triglycerides 492 mg/dl (10-149) H 04/07/23 03:51
LDL Cholesterol, Calc mg/dl 04/07/23 03:51
VLDL Cholesterol, Calc mg/dl (0-30) 04/07/23 03:51
HDL Cholesterol 43 mg/dl 04/07/23 03:51
04/06/23
19:00
Bmp-D-Cwzqdqdiyye Pept 236
LAB Results
04/07/23
06:31
Troponin I Cancelled
Physical Exam
Constitutional: No acute distress
EENT: Anicteric
Cardiovascular: Rhythm & rate is regular
Respiratory: Respiratory effort normal
GI: Soft, Non tender and Normal bowel sounds
Neuro/Psych: AO x 3
Other: Skin (warm, dry)
Data Reviewed
-
Date of Service: April 10, 2023
Medical Decision Making: External Notes and Reviewed Test Results
EKG: Tracing Personally Visualized and interpreted
Echo: Report Reviewed by me
Labs: Labs Reviewed by me
Old Records: Reviewed
[2023-04-10 09:28] LABS: Glucose - Point of Care 115 mg/dl (70-99)
[2023-04-10] MEDS: NOVOLOG FLEXPEN 4 UNITS SC ×3 (09:56→17:50)
--- NOTE | 2023-04-10 12:11 | PTCARENOTE ---
pt was delined and assisted OOB to chair, pt tolerated well. VSS, sinus rhythm- sinus tach maintained on tele
--- NOTE | 2023-04-10 13:51 | W.PN.UPDATE ---
Update Note
Progress Note Update
Patient was seen on rounds this morning. Doing well. Coherent. In good spirits. Wean dobutamine off. Start diuresis today. ASA + Plavix. Ok to remove lua and get patient to chair. Will assess later in the day for bb, tachy cardia could be from the
DTX.
[2023-04-10 14:09] LABS: Glucose - Point of Care 118 mg/dl (70-99)
[2023-04-10 14:09] LABS: Glucose - Point of Care 128 mg/dl (70-99)
[2023-04-10 14:30] LABS: Glucose - Point of Care 97 mg/dl (70-99)
[2023-04-10] MEDS: NSS 500 IV (14:31)
--- NOTE | 2023-04-10 15:03 | CM ---
Reviewed chart. Met with Ms. Garrison and her two sisters to review discharge plans. She states she is feeling okay. Family expressed concerns that she has a full flight of steps to get to bedroom/full bathroom. Family states she does not have a
bathroom on the first floor. We reviewed a home visit by the Cardiothoracic Transitional Care Nurse and SNF/Rehab. if indicated. Will need to see her current functional level to see if she will have any skilled care services. She will need
pre-cert for SNF with his insurance. Family would like to explore [facility] if SNF/Rehab. needed. Prior to admission she resides with her two sisters in a two story home with two steps to enter. She has a stair glide to use to get to the
second floor if needed. Prior to admission she ambulated with a single point cane and independent with adls. She has a stair glide and single point cane at home. She has a prescription plan and uses [facility]. Medical work-up in progress. The
discharge plan s to return home with her two sisters and a home visit by the Cardiothoracic Transitional Care Nurse versus SNF/Rehab. if indicated when medically stable.
--- NOTE | 2023-04-10 16:20 | PTCARENOTE ---
pt forgetful at times, easily reoriented, follows commands, VENTURA. VSS, sinus tachycardia on tele w HR low 100's. Minimal OP from CtS
[2023-04-10 16:47] LABS: Glucose - Point of Care 137 mg/dl (70-99)
[2023-04-10 17:50] LABS: Glucose - Point of Care 133 mg/dl (70-99)
--- NOTE | 2023-04-10 18:33 | PTCARENOTE ---
lua removed at 1130. pt was incont urine at ~1300. Bladder scanned for 0ml post void.
[2023-04-10 19:52] LABS: Glucose - Point of Care 106 mg/dl (70-99)
--- NOTE | 2023-04-10 20:00 | PTCARENOTE ---
assumed care of pt from previous RN. pt A&Ox4, resting in bed. sinus tach on tele-monitor. HR low 100s. palpable peripheral pulses, +1 generalized edema. CTx4 (mediastinal x2, L & R pleural) to -20cm wall suction, w/ serosanguineous drainage. no air
leak noted. 2 L NC. no c/o N/V. abd s/n, +BS. all surgical sites stable. R IJ cordis w/ KVO. insulin gtt infusing per protocol. PIV intact. see worklist for complete nursing assessment, interventions, VS, and I&Os.
[2023-04-10] MEDS: TOPROL XL 12.5 MG PO (21:20)
[2023-04-10] MEDS: CALCIUM CHLORIDE 10% SYRINGE 60 MG IV (21:20)
[2023-04-10] MEDS: LIPITOR 80 MG PO (21:20)
[2023-04-10] MEDS: ULTRAM 25 MG PO (21:21)
[2023-04-10 22:01] LABS: Glucose - Point of Care 106 mg/dl (70-99)
[2023-04-11] VITALS (20 sets, daily range): BP systolic 97–151; BP diastolic 27–77; PULSE 107; O2SAT 93; BMI 44.0
[2023-04-11 00:01] LABS: Glucose - Point of Care 98 mg/dl (70-99)
--- NOTE | 2023-04-11 00:04 | PTCARENOTE ---
assessment remains unchanged. no c/o pain at this time. SR to sinus tach on tele-monitor. CT drainage WNL.
[2023-04-11] MEDS: TYLENOL PO (00:05)
[2023-04-11 02:03] LABS: Glucose - Point of Care 134 mg/dl (70-99)
--- NOTE | 2023-04-11 04:00 | PTCARENOTE ---
assessment remains unchanged. dorina'd tylenol for pain. SR to sinus tach on tele-monitor. CT drainage WNL. AM labs collected and sent.
[2023-04-11 04:19] LABS: Glucose - Point of Care 91 mg/dl (70-99)
[2023-04-11] MEDS: TYLENOL 650 MG PO ×5 (04:19→20:05)
[2023-04-11 04:42] LABS: Hematocrit 24.9 % (37.0-47.0); Hemoglobin 8.3 g/dL (12.0-16.0); Mean Corp Hgb Conc. 33.3 g/dL (33.0-37.0); Mean Corpuscular Hgb 30.4 pg (27.0-31.0); Mean Corpuscular Volume 91.2 fL (81.0-99.0); Mean Platelet Volume 9.5 fL (7.4-10.4); Platelet Count 257 10^3/uL (130-400); Red Blood Cell Count 2.73 10^6/uL (4.20-5.40); Red Cell Dist. Width 13.7 % (11.5-14.5); White Blood Cell Count 9.5 10^3/uL (4.8-10.8)
--- NOTE | 2023-04-11 05:00 | W.PN.CT ---
Today's Communication / Plan
-
Plan:
-No major issues overnight. Hemodynamically stable. Pt still with mild confusion, not fully oriented to time (believes it's 1899's/Month of February)
-Consider 1u prbc given ongoing confusion/tachycardia likely d/t bilateral carotid artery stenosis in the setting of anemia (h/h 8.3/24.9 today, was 12.4/35.5 preop)
-Tolerated Toprol XL 12.5 mg last night, given ongoing tachycardia, likely as a result of anemia/hypovolemia. Hold Lasix today
-D/C chest tubes with f/u cxr: 2 meds 50/130, R/L pls 80/180 in 12/24 hrs
-D/C insulin gtt/Transfer to [facility] phase, and resume PO oral glycemic meds. Diabetes education/management following
-Cont. current meds (ASA, Plavix, Lipitor, Low dose BB -Toprol XL 12.5 QD given tachycardia, hold lasix today)
-Encourage use of IS
-Wean off O2
-No temporary PW
-OOB into chair/Ambulate
Assessment / Plan
-
- NSTEMI/mv-CAD - s/p CABG x 6 (CRISS to LAD, GSV to D2, sGSV to RI/OM2, sGSV to PDA/RPLB); b/l LE [facility] by Dr. Haque on 04/09/23, pod #2
-Post-JUSTUS: Normal biventricular function w/ LVEF 65, mild MR, mild TR (unchanged from preop)
- HTN/HLD
- Class 3 obesity (BMI 43.4)
- DM II (HgA1c 8.9)
- Carotid stenosis: 50-69% on R and 70-99% on L
- Head/neck CTA 04/08/23:
NECK CTA: Moderate vascular calcification at the carotid bulb bilaterally. The carotid bulbs are in the midline at the level of the hyoid bone. Tortuous.
There is approximately 63% stenosis of the origin of the right internal carotid artery. There is a similar appearance to the origin of the left internal carotid artery however there is a higher grade stenosis within 1 cm of the origin measuring at
least 73% stenosis consistent with the ultrasound.
HEAD CTA: Patent [place]. No filling defect. No focal stenosis or aneurysm.
- Elevated R hemidiaphragm
- Pre-existing 1st degree AV block
- Acute postop abnormal ECG
- Acute postop blood loss anemia
- Acute postop atelectasis/pleural effusion
- Acute postop hypovolemia with subsequent hypervolemia
- Acute postop confusion, likely d/t b/l carotid artery stenosis in the setting of anemia
Discussed patient care with: Cardiology, Nursing, Respiratory Therapy, Pharmacy and Care Team
Subjective
Procedure
�- s/p CABG x 6 (CRISS to LAD, GSV to D2, sGSV to RI/OM2, sGSV to PDA/RPLB); b/l LE [facility] by Dr. Haque on 04/09/23
-
Date of Service: April 11, 2023
Pt c/o pleuritic chest pain, otherwise feel well. Not fully oriented to time, likely secondary to b/l carotid artery disease in the setting of anemia/hypotension
Objective Data
-
Lab Results
04/11/23 04:18
PT 16.5 Sec (11.4-14.6) H 04/09/23 14:45
INR 1.32 04/09/23 14:45
APTT 36.9 Sec (23.4-35.0) H 04/09/23 14:45
Vital Signs
Vital Signs
Temp Pulse Resp BP Pulse Ox
98.5 F 97 20 125/70 98
04/11/23 04:00 04/11/23 04:00 04/11/23 04:00 04/11/23 04:00 04/11/23 04:30
CT Intake/Output/Weight
04/10/23 04/10/23 04/11/23
06:59 18:59 06:59
Intake Total 974.3 / 1344.5 436.7 / 574.3 137.6 / 574.3
Output Total 725 / 1230 1050 / 1160 110 / 1160
Balance 249.3 / 114.5 -613.3 / -585.7 27.6 / -585.7
SaO2: 98 (2L)
Physical Exam
-
General: Awake and Oriented (x2, not fully oriented to time)
Cardiovascular: Regular rate & rhythm, No Murmurs, No Rub and No Gallop
Respiratory: Decreased Breath Sounds
Sternum: Stable
Incision: Clean, Dry, Intact and Dressing Intact
Extremities: Other (+trace edema)
Data Reviewed
-
Lab Results: Results Reviewed
Medications: Active Meds Reviewed
Chest X-Ray: Report Reviewed and Image Reviewed
ECG: Report Reviewed and Image Reviewed
[2023-04-11 05:05] LABS: Blood Urea Nitrogen 29 mg/dl (7-17); Calcium 8.7 mg/dl (8.4-10.2); Carbon Dioxide 28 mmol/L (22-30); Chloride 104 mmol/L (98-107); Estimated Creatinine Clearance 103 ml/min; Glucose 90 mg/dl (70-99); Potassium 3.9 mmol/L (3.5-5.1); Sodium 138 mmol/L (135-145); eGFR > 60.00
[2023-04-11 06:43] LABS: Glucose - Point of Care 156 mg/dl (70-99)
--- NOTE | 2023-04-11 08:00 | PTCARENOTE ---
Assumed care of patient. Walking rounds completed with previous RN. Pt assessed while she was sitting in the chair. Pt drowsy and oriented x3. Pt states it is 1900s but is able to state that Tere's day was a few days ago and it is the month of
march. VENTURA with equal but weak strength in all extremities. No facial droop, tongue deviation noted. PERRLA 3mm brisk. SR-ST on tele with rates 90s-low 100s. BP stable 99/55. Heart tones audible. Bilateral radial pulses palpable. Bilateral DP
weakly palpable. generalized +1 edema noted. Titrated from 4L to RA. POX 93-95%. Lungs with crackles in bilateral bases. Occasional nonproductive cough noted. Mediastinal x2 chest tubes and Right &left pleural chest tubes to -20cm suction draining
serosanguinous fluid. IS encouraged-500mL. Abdomen soft, round, obese, nontender. Hypoactive BS. Passing gas. Due to void for this RN. Sternal incision covered with Aquacel-CDI. B/l groin puncture sites ROAD EQUIPMENT OPERATOR. B/l knee incisions approximated and
closed with skin glue and ROAD EQUIPMENT OPERATOR. CT sites covered CDI. Right IJ cordis intact infusing NSS KVO and insulin gtt per critical care glycemic protocol. Left AC 20g PIV intact. Cordis sluggish to flush. See MAR for medication administration. See worklist
for complete nursing assessment. Plan of care reviewed and patient in agreement.
[2023-04-11] MEDS: BACTROBAN 2% OINTMENT 1 APPLIC NASAL ×2 (08:08→20:06)
[2023-04-11] MEDS: MAGNESIUM OXIDE 500 MG PO ×2 (08:13→20:05)
[2023-04-11] MEDS: SENOKOT-S 1 TABLET PO ×2 (08:13→20:05)
[2023-04-11] MEDS: PACERONE 200 MG PO ×2 (08:13→16:29)
[2023-04-11] MEDS: TOPROL XL 12.5 MG PO ×2 (08:13→20:05)
[2023-04-11] MEDS: LOW STRENGTH ASPIRIN 81 MG PO (08:13)
[2023-04-11] MEDS: PLAVIX 75 MG PO (08:14)
[2023-04-11] MEDS: FLUSH (NSS) 1 FLUSH IV (08:14)
[2023-04-11] MEDS: JARDIANCE 10 MG PO (09:10)
[2023-04-11] MEDS: LASIX PO (09:10)
[2023-04-11] MEDS: KCL 20 MEQ PO (09:10)
[2023-04-11] MEDS: NOVOLOG FLEXPEN SC (09:11)
[2023-04-11 09:13] LABS: Glucose - Point of Care 113 mg/dl (70-99)
--- NOTE | 2023-04-11 09:32 | W.PN.CD ---
Today's Communication / Plan
-
agree with current post op care
continue meds for CAD
Agree wtih transfusion and lasix
Impression / Plan
-
Assessment/Plan: 68 y/o female who presented with CP and was discovered to have multi-vessel CAD is now s/p CABG.
ACS/multivessel CAD:
-now s/p CABG x 6 (CRISS to LAD, GSV to D2, sGSV to RI/OM2, sGSV to PDA/RPLB), Dr. Haque 04/09/23
-intra-op JUSTUS: LVEF 55-60%
-post op EKG and tele with SR
-denies pain, sob
-peak troponin 15.3,
-on asa and plavix appropriately
-OMT as bp allows
Confusion:
-getting transfusion incase anemia contributing given ARGELIA
-may be due to surgery
�
Dyslipidemia:
-LDL 141
-continue Lipitor 80mg daily
-goal LDL < 70
DM2:
-on insulin drip
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
-HgbA1C 8.9%
B/L ICA:
-to be seen by Dr Chacko as an outpatient
-continue high dose statin, asa
Post-op anemia - acute
-transfusing today, agree with Lasix post infusion as she is volume overloaded on exam.
Subjective:
She is feeling sob but working on ICS and happy with her result.
Physical Exam
Vital Signs/Labs
Vital Signs
Temp Pulse Resp BP Pulse Ox
98.9 F 101 15 99/55 95
04/11/23 08:00 04/11/23 08:30 04/11/23 08:00 04/11/23 08:01 04/11/23 08:30
04/10/23 04/11/23 04/12/23
06:59 06:59 06:59
Actual Weight 125.8 kg 123.7 kg
04/11/23 04:18
04/11/23 04:18
PT 16.5 Sec (11.4-14.6) H 04/09/23 14:45
INR 1.32 04/09/23 14:45
APTT 36.9 Sec (23.4-35.0) H 04/09/23 14:45
Magnesium 2.4 mg/dl (1.6-2.3) H 04/10/23 03:09
Triglycerides 492 mg/dl (10-149) H 04/07/23 03:51
LDL Cholesterol, Calc mg/dl 04/07/23 03:51
VLDL Cholesterol, Calc mg/dl (0-30) 04/07/23 03:51
HDL Cholesterol 43 mg/dl 04/07/23 03:51
04/06/23
19:00
Zuc-E-Dcjncaeflfc Pept 236
Physical Exam
Constitutional: Confusion (repeats same info but is pleasant)
Cardiovascular: Rhythm & rate is regular and Pedal edema present (1+ in legs, but also in hands)
Respiratory: Respiratory effort normal, Lungs clear to auscul., Wheeze Absent, Crackles Absent and Rhonchi Absent
Neuro/Psych: Alert
Data Reviewed
-
Date of Service: April 11, 2023
--- NOTE | 2023-04-11 09:35 | W.PN.INTV ---
Today's Communication / Plan
Recommendations
Up OOB as tolerated
Strict I's/O; low-sodium/fluid restricted diet
Continue supplemental oxygen and maintain SpO2 >94%
Encourage incentive spirometer
Patient currently CVICU-telemetry status. Regional Transportation Manager/pulmonary service will now sign off. Please reconsult if there are any additional questions/concerns.
Assessment
-
Assessment: 68-year-old female with past medical history of back pain presented with chest pain and back pain for several weeks which suddenly worsened. Chest pain worsened with activity and improved with rest. The chest pain had not improved
with rest on the day of admission so she came to the ER. Initial EKG showed sinus tachycardia with subtle ST depressions in the lateral leads. Initial troponin was 0.765, and heparin drip was started and she was also given aspirin and cardiology
consulted. An echocardiogram showed moderate concentric LVH with normal LV systolic function. Given concern for ACS, cardiology performed a left heart catheterization on 04/07 which showed extremely severe triple-vessel CAD with 60% left main
coronary artery stenosis. Inpatient CABG was recommended and cardiothoracic surgery was consulted. Today patient underwent CABG X6. She has [address] and sternal wires X7. There were no immediate complications and she was
transferred to the CVICU for further care. Pulmonary/critical care services now consulted for additional management/recommendations.
Chronic conditions INSIDE FINISHER: CAD, hypertension, hypercholesterolemia + morbid obesity
Impression:
#NSTEMI s/p CABG x6 (POD#2)
#Hyperglycemia - resolved
#Acute hypoxemic respiratory failure due to acute decompensated heart failure - improved
#Abnormal chest x-ray with pulmonary vascular congestion concerning for acute decompensated heart failure/acute HFpEF
#Morbid obesity (BMI: 43.4)
Plan:
Wean supplemental flow rate to keep SpO2 >94%
Encourage incentive spirometry
Increase activity
Aspiration precautions
Pulmonary artery catheter and arterial line removed
Pressors have been weaned
Monitor I/O, and would give low sodium, fluid restricted diet
Chest tubes DC'd today
Follow hemoglobin
Continue to follow platelet count and coags
Transfuse blood product as needed
Follow blood sugar with goal 140-180
Insulin supplementation as needed
Early nutrition
Early mobilization
DVT prophylaxis
I personally reviewed the patient's pertinent medical records including radiographs, microbiology, laboratory evaluations, and discussion with primary team, and critical care nursing.
Patient currently CVICU-telemetry status. Regional Transportation Manager/pulmonary service will now sign off. Thank you for allowing me to be involved in care of this patient. Please reconsult if there are any additional questions/concerns.
Data:
CXR 04-11-2023: Stable small left pleural effusion and bibasilar atelectasis.
CXR 04-10-2023: Improving left pleural effusion and bibasilar atelectasis.
CXR 04-09-2023:
Mild cardiomegaly. New.
Prominence of the central vasculature concerning for CHF. Findings partially due to limited inspiration cannot be excluded.
Subjective Dataa
Subjective Data
Date of Service:
Date of Service: April 11, 2023
Chief Complaint: Regional Transportation Manager Follow Up
Subjective:
Patient seen this morning. Remains on room air. Afebrile overnight. No acute support from overnight. Patient has postoperative chest pain but it is not worse; denies shortness of breath, headache, fevers or chills. Downgraded to CVICU�telemetry.
Review of Systems
General: Other (Negative unless mentioned above)
Objective Data
Data Reviewed
Vital Signs / I&O / Oxygen:
Vital Signs
Temp Pulse Resp BP Pulse Ox
98.9 F 101 15 99/55 95
04/11/23 08:00 04/11/23 08:30 04/11/23 08:00 04/11/23 08:01 04/11/23 08:30
Intake and Output
04/10/23 04/11/23 04/12/23
06:59 06:59 06:59
Intake Total 1317.4 / 1344.5 595.9 / 595.9 268 / 268
Output Total 1170 / 1230 1480 / 1480
Balance 147.4 / 114.5 -884.1 / -884.1 243 / 243
SaO2 [CPAP] 98
SaO2 [SIMV] 96
SaO2 95
Nasal Cannula flow liters per 4
minute
Physical Exam
General: Comfortable
HEENT: Normocephalic and Anicteric
Cardiovascular: Peripheral Edema (Negative) and Other (tachycardic)
Respiratory: Clear, Wheeze (Negative), Crackles (Negative), Rhonchi (Negative) and Non-Labored Respirations
GI: Soft, Non Distended, Non Tender and Normal Bowel Sounds
Neurology: AO x 3 and Tremors (Negative)
Skin: Warm, Dry and Cyanosis (Negative)
Labs/Micro/Reports
Lab Data
04/11/23 04:18
04/11/23 04:18
Microbiology
04/09/23 07:15 Urine Urine Culture - Final
NO GROWTH
[2023-04-11] MEDS: LASIX IV (09:36)
[2023-04-11] MEDS: NSS 500 IV (10:26)
[2023-04-11] MEDS: NOVOLOG FLEXPEN-MODERATE RESISTANCE SC (12:39)
[2023-04-11] MEDS: LASIX 40 MG IV (12:39)
[2023-04-11 12:42] LABS: Glucose - Point of Care 145 mg/dl (70-99)
--- NOTE | 2023-04-11 12:45 | PTCARENOTE ---
Pt reassessed. SR-ST with rates 90s-100s. BP 144/72. POX 97% on RA. Surgical sites stable. 1unit PRBC infused without complication. Pt assisted to commode and voided 750mL sloane urine with slight incontinence prior to getting to commode. Insulin gtt
d/c earlier per glycemic protocol. no other acute changes from previous assessment.
--- NOTE | 2023-04-11 14:15 | PTCARENOTE ---
Mediastinal chest tubes x2 and left and right pleural chest tubes d/c with 2 RNs. sutures tied. Vaseline gauze, gauze, and ABD dressing applied. Pt tolerated. CXR called.
[2023-04-11] MEDS: GLUCOPHAGE 500 MG PO (16:29)
[2023-04-11] MEDS: GLUCOTROL 5 MG PO (16:29)
[2023-04-11] MEDS: NOVOLOG FLEXPEN-MODERATE RESISTANCE 1 UNITS SC (16:29)
[2023-04-11 16:32] LABS: Glucose - Point of Care 156 mg/dl (70-99)
--- NOTE | 2023-04-11 17:00 | PTCARENOTE ---
Pt reassessed. VSS. ST with rates in the 100s. BP stable 109/77. POX 93% on RA. Surgical sites stable. Pt assisted OOB with 1-2 assist and rolling walker. Pt urinating large amounts with stress incontinence. Pt eating dinner in the chair at this
time.
[2023-04-11] MEDS: CALCIUM CHLORIDE 10% SYRINGE 60 MG IV (20:06)
--- NOTE | 2023-04-11 20:15 | PTCARENOTE ---
assumed care of pt from previous RN. pt A&Ox3. pt occasionally disoriented to time/year, easily reoriented. pt resting in chair at time of assessment. no c/o pain at this time. SR to sinus tach on tele-monitor, occasional PVCs. palpable b/l radial
pulses, weakly palpable DP pulses. +1 generalized edema noted. POX 97% on RA. lungs audible on auscultation. no c/o N/V. abd s/n, round, obese, +BS. pt voiding on BSC, w/ occasional stress incontinence. sternal incision w/ aquacell, CDI. R & L groin
puncture and leg incision sites approximated w/ surgi-glue, HIGHER EDUCATION ADMINISTRATOR, CDI. CT dressing CDI. R IJ cordis w/ KVO. PIV intact. see worklist for complete nursing assessment, interventions, VS, and I&Os.
[2023-04-11] MEDS: FERRLECIT 110 MG IV (22:10)
[2023-04-11] MEDS: PACERONE 400 MG PO (22:10)
[2023-04-11] MEDS: LIPITOR 80 MG PO (22:10)
[2023-04-11 22:17] LABS: Glucose - Point of Care 111 mg/dl (70-99)
[2023-04-12] VITALS (12 sets, daily range): BP systolic 107–175; BP diastolic 52–113; PULSE 103; O2SAT 94–96
[2023-04-12] MEDS: TYLENOL 650 MG PO ×3 (00:13→21:15)
--- NOTE | 2023-04-12 00:21 | PTCARENOTE ---
assessment remains unchanged. NSR on tele-monitor. HR 90s. POX 92% on RA. BP 128/70. dorina'd tylenol given.
[2023-04-12 04:39] LABS: Hematocrit 27.2 % (37.0-47.0); Hemoglobin 9.1 g/dL (12.0-16.0); Mean Corp Hgb Conc. 33.5 g/dL (33.0-37.0); Mean Corpuscular Hgb 30.3 pg (27.0-31.0); Mean Corpuscular Volume 90.7 fL (81.0-99.0); Mean Platelet Volume 9.2 fL (7.4-10.4); Platelet Count 279 10^3/uL (130-400); Red Cell Dist. Width 13.7 % (11.5-14.5); White Blood Cell Count 9.8 10^3/uL (4.8-10.8)
--- NOTE | 2023-04-12 04:43 | W.PN.CT ---
Today's Communication / Plan
-
Plan:
-No major issues overnight. Hemodynamically stable. Pt still with mild confusion, not fully oriented to time (believes it's 1899's/Month of February)
-Received 1u PRBC yesterday for h/h of 8.3/24.9, improved to 9.1/27.2 this AM
-Will benefit from higher BP given confusion which is likely stemming from significant carotid artery disease combined with affects of anesthesia, now Tolerated Toprol XL 12.5 mg BID
-Tolerating current oral diabetic meds. Diabetes education/management following
-Cont. current meds (ASA, Plavix, Lipitor, Low dose BB -Toprol XL 12.5 BID, Amiodarone increased to 400 mg TID given episodes of tachycardia, consider hold on Lasix, minimize narcotics)
-D/C cordis
-Encourage use of IS
-No temporary PW
-OOB into chair/Ambulate
Assessment / Plan
-
- NSTEMI/mv-CAD - s/p CABG x 6 (CRISS to LAD, GSV to D2, sGSV to RI/OM2, sGSV to PDA/RPLB); b/l LE [facility] by Dr. Haque on 04/09/23, pod #3
-Post-JUSTUS: Normal biventricular function w/ LVEF 65, mild MR, mild TR (unchanged from preop)
- HTN/HLD
- Class 3 obesity (BMI 43.4)
- DM II (HgA1c 8.9)
- Carotid stenosis: 50-69% on R and 70-99% on L
- Head/neck CTA 04/08/23:
NECK CTA: Moderate vascular calcification at the carotid bulb bilaterally. The carotid bulbs are in the midline at the level of the hyoid bone. Tortuous.
There is approximately 63% stenosis of the origin of the right internal carotid artery. There is a similar appearance to the origin of the left internal carotid artery however there is a higher grade stenosis within 1 cm of the origin measuring at
least 73% stenosis consistent with the ultrasound.
HEAD CTA: Patent [place]. No filling defect. No focal stenosis or aneurysm.
- Elevated R hemidiaphragm
- Pre-existing 1st degree AV block
- Acute postop abnormal ECG
- Acute postop blood loss anemia
- Acute postop atelectasis/pleural effusion
- Acute postop hypovolemia with subsequent hypervolemia
- Acute postop confusion, likely d/t b/l carotid artery stenosis in the setting of anemia/anesthesia
Discussed patient care with: Cardiology, Nursing, Respiratory Therapy, Pharmacy and Care Team
Subjective
Procedure
�- s/p CABG x 6 (CRISS to LAD, GSV to D2, sGSV to RI/OM2, sGSV to PDA/RPLB); b/l LE [facility] by Dr. Haque on 04/09/23
-
Date of Service: April 12, 2023
Pt c/o mild incisional pain, states pleuritic chest pain is better following chest tube removal yesterday
Objective Data
-
PT 16.5 Sec (11.4-14.6) H 04/09/23 14:45
INR 1.32 04/09/23 14:45
APTT 36.9 Sec (23.4-35.0) H 04/09/23 14:45
Vital Signs
Vital Signs
Temp Pulse Resp BP Pulse Ox
98.2 F 88 14 107/52 92
04/12/23 04:00 04/12/23 04:13 04/12/23 04:00 04/12/23 04:13 04/12/23 04:00
CT Intake/Output/Weight
04/11/23 04/11/23 04/12/23
06:59 18:59 06:59
Intake Total 159.2 / 595.9 518 / 778 260 / 778
Output Total 430 / 1480 2300 / 2700 400 / 2700
Balance -270.8 / -884.1 -1782 / -1922 -140 / -1922
SaO2: 92 (RA)
Physical Exam
-
General: Awake, Oriented and AOx3
Cardiovascular: Regular rate & rhythm, No Murmurs, No Rub and No Gallop
Respiratory: Decreased Breath Sounds
Sternum: Stable
Incision: Clean, Dry, Intact and Dressing Intact
Extremities: Other (+trace edema)
Data Reviewed
-
Lab Results: Results Reviewed
Medications: Active Meds Reviewed
Chest X-Ray: Report Reviewed and Image Reviewed
ECG: Report Reviewed and Image Reviewed
[2023-04-12 04:54] LABS: INR 1.12; PT 14.2 Sec (11.4-14.6)
[2023-04-12 05:04] LABS: Blood Urea Nitrogen 28 mg/dl (7-17); Calcium 8.6 mg/dl (8.4-10.2); Carbon Dioxide 28 mmol/L (22-30); Chloride 103 mmol/L (98-107); Estimated Creatinine Clearance 102 ml/min; Glucose 122 mg/dl (70-99); Magnesium 2.2 mg/dl (1.6-2.3); Sodium 134 mmol/L (135-145); eGFR > 60.00
[2023-04-12] MEDS: ULTRAM 25 MG PO (06:33)
[2023-04-12 07:55] LABS: Glucose - Point of Care 132 mg/dl (70-99)
[2023-04-12] MEDS: NOVOLOG FLEXPEN-MODERATE RESISTANCE SC ×2 (08:56→12:48)
[2023-04-12] MEDS: SENOKOT-S 1 TABLET PO ×2 (08:57→19:39)
[2023-04-12] MEDS: LOW STRENGTH ASPIRIN 81 MG PO (08:57)
[2023-04-12] MEDS: PLAVIX 75 MG PO (08:57)
[2023-04-12] MEDS: PROTONIX 40 MG PO (08:57)
[2023-04-12] MEDS: GLUCOPHAGE 500 MG PO ×2 (08:57→17:20)
[2023-04-12] MEDS: VITAMIN C 1000 MG PO (08:57)
[2023-04-12] MEDS: LASIX 40 MG PO (08:58)
[2023-04-12] MEDS: GLUCOTROL 5 MG PO ×2 (08:58→17:20)
[2023-04-12] MEDS: JARDIANCE 10 MG PO (08:58)
[2023-04-12] MEDS: KCL 20 MEQ PO (08:58)
[2023-04-12] MEDS: MAGNESIUM OXIDE 500 MG PO ×2 (08:58→19:39)
--- NOTE | 2023-04-12 09:00 | PTCARENOTE ---
Received patient for 7a-7p shift. Pt AAOx3, oob in chair, without complaints. VSS, NSR on fiberglass dowel drawing operator, patient denies cp, palpitations, pain at this time. Medications administered as ordered. Pts blood glucose 132. PT/OT in to see patient, 1-2
person assist with rolling walker. Instructed pt to call for assistance prior to ambulation. Pt verbalized understanding. Will continue to monitor.
[2023-04-12] MEDS: PACERONE 400 MG PO ×3 (09:01→22:09)
[2023-04-12] MEDS: BACTROBAN 2% OINTMENT 1 APPLIC NASAL ×2 (09:02→19:38)
[2023-04-12 12:21] LABS: Glucose - Point of Care 113 mg/dl (70-99)
--- NOTE | 2023-04-12 14:38 | PTCARENOTE ---
Patient resting comfortably, family at bedside. VSS, hr 97 on electrical electronics engineer, NSR. 1 person assist to commode with rolling walker. Medications administered as ordered. Will continue to monitor.
[2023-04-12] MEDS: FERRLECIT 110 MG IV (14:57)
--- NOTE | 2023-04-12 15:28 | PTCARENOTE ---
Patient AAOx3, oob in chair, resting comfortably. Ambulatory to commode with rolling walker and 1 person assist. VSS, NSR on heat treatment technician. Medications administered as ordered. Family visiting in room. Will continue to monitor.
[2023-04-12 17:16] LABS: Glucose - Point of Care 158 mg/dl (70-99)
[2023-04-12] MEDS: NOVOLOG FLEXPEN-MODERATE RESISTANCE 1 UNITS SC (17:17)
[2023-04-12] MEDS: NSS IV (17:59)
--- NOTE | 2023-04-12 18:03 | PTCARENOTE ---
Pt returned to bed with rolling walker and 1 person assist. R IJ cordis d/c without issues. Pt resting comfortably. Will continue to monitor.
--- NOTE | 2023-04-12 19:00 | PTCARENOTE ---
report received from previous RN, walking rounds done. pt in bed, AAOx4. pt denies any pain. NSR/ST on monitor, HR 90's-100's. BP normotensive. POX 96% on room air. B/L breath sounds present. bowel sounds present. pt voids without difficulty. all
surgical sites stable. see worklist for full assessment, VS, and interventions. pt resting comfortably.
[2023-04-12] MEDS: LIPITOR 80 MG PO (21:11)
[2023-04-12] MEDS: LOPRESSOR 2.5 MG IV (22:15)
[2023-04-13] VITALS (10 sets, daily range): BP systolic 115–146; BP diastolic 63–86; PULSE 92; O2SAT 97–98; BMI 42.8
[2023-04-13] MEDS: ULTRAM 50 MG PO (02:46)
--- NOTE | 2023-04-13 03:00 | PTCARENOTE ---
pt VSS, no changes in assessment. NSR 80's-90's. BP normotensive. POX 93% on room air. ultram given for sternal incision pain. AM labs drawn and sent. pt resting between care.
[2023-04-13 03:28] LABS: Hematocrit 26.6 % (37.0-47.0); Hemoglobin 9.3 g/dL (12.0-16.0); Mean Corpuscular Hgb 30.1 pg (27.0-31.0); Mean Corpuscular Volume 86.1 fL (81.0-99.0); Mean Platelet Volume 9.3 fL (7.4-10.4); Platelet Count 358 10^3/uL (130-400); Red Blood Cell Count 3.09 10^6/uL (4.20-5.40); Red Cell Dist. Width 13.7 % (11.5-14.5); White Blood Cell Count 9.8 10^3/uL (4.8-10.8)
[2023-04-13 03:40] LABS: Blood Urea Nitrogen 29 mg/dl (7-17); Calcium 8.4 mg/dl (8.4-10.2); Carbon Dioxide 26 mmol/L (22-30); Chloride 103 mmol/L (98-107); Estimated Creatinine Clearance 101 ml/min; Glucose 114 mg/dl (70-99); Potassium 3.7 mmol/L (3.5-5.1); Sodium 136 mmol/L (135-145); eGFR > 60.00
--- NOTE | 2023-04-13 06:18 | W.PN.CT ---
Today's Communication / Plan
-
Plan:
-No major issues overnight. Hemodynamically stable. Pt now fully oriented, Was not oriented to time until last night, 04/12/23
-H/H stable @ 9.3/26.6
-BP better, consider low dose BB (12.5 mg Toprol XL). Will benefit from higher BP to help with perfusion given her severe carotid artery stenosis
-Tolerating current oral diabetic meds. Diabetes education/management following
-Cont. current meds (ASA, Plavix, Lipitor, Low dose BB -Toprol XL 12.5 QD, Lasix, minimize narcotics)
-F/U 2-view cxr
-Encourage use of IS
-No temporary PW
-OOB into chair/Ambulate
-D/C to SNF once case management able to secure bed
Assessment / Plan
-
- NSTEMI/mv-CAD - s/p CABG x 6 (CRISS to LAD, GSV to D2, sGSV to RI/OM2, sGSV to PDA/RPLB); b/l LE [facility] by Dr. Haque on 04/09/23, pod #4
-Post-JUSTUS: Normal biventricular function w/ LVEF 65, mild MR, mild TR (unchanged from preop)
- HTN/HLD
- Class 3 obesity (BMI 43.4)
- DM II (HgA1c 8.9)
- Carotid stenosis: 50-69% on R and 70-99% on L
- Head/neck CTA 04/08/23:
NECK CTA: Moderate vascular calcification at the carotid bulb bilaterally. The carotid bulbs are in the midline at the level of the hyoid bone. Tortuous.
There is approximately 63% stenosis of the origin of the right internal carotid artery. There is a similar appearance to the origin of the left internal carotid artery however there is a higher grade stenosis within 1 cm of the origin measuring at
least 73% stenosis consistent with the ultrasound.
HEAD CTA: Patent [place]. No filling defect. No focal stenosis or aneurysm.
- Elevated R hemidiaphragm
- Pre-existing 1st degree AV block
- Acute postop abnormal ECG
- Acute postop blood loss anemia
- Acute postop atelectasis/pleural effusion
- Acute postop hypovolemia with subsequent hypervolemia
- Acute postop confusion, likely d/t b/l carotid artery stenosis in the setting of anemia/anesthesia
Discussed patient care with: Cardiology, Nursing, Respiratory Therapy, Pharmacy and Care Team
Subjective
Procedure
�- s/p CABG x 6 (CRISS to LAD, GSV to D2, sGSV to RI/OM2, sGSV to PDA/RPLB); b/l LE EV[facility] by Dr. Haque on 04/09/23
-
Date of Service: April 13, 2023
Pt c/o mild incisional pain, otherwise feels well. Now fully oriented
Objective Data
-
Lab Results
04/13/23 02:56
04/13/23 02:56
PT 14.2 Sec (11.4-14.6) 04/12/23 04:10
INR 1.12 04/12/23 04:10
APTT 36.9 Sec (23.4-35.0) H 04/09/23 14:45
Vital Signs
Vital Signs
Temp Pulse Resp BP Pulse Ox
97.9 F 85 18 125/73 93
04/13/23 03:00 04/13/23 03:00 04/13/23 03:00 04/13/23 03:00 04/13/23 03:00
CT Intake/Output/Weight
04/12/23 04/12/23 04/13/23
06:59 18:59 06:59
Intake Total 260 / 778 820 / 820
Output Total 1000 / 3300 1900 / 1900
Balance -740 / -2522 -1080 / -1080
SaO2: 93 (RA)
Physical Exam
-
General: Awake, Oriented and AOx3
Cardiovascular: Regular rate & rhythm, No Murmurs and No Gallop
Respiratory: Decreased Breath Sounds (at bases, otherwise clear)
Sternum: Stable
Incision: Clean, Dry, Intact and Dressing Intact
Extremities: Edema +1
Data Reviewed
-
Lab Results: Results Reviewed
Medications: Active Meds Reviewed
Chest X-Ray: Report Reviewed and Image Reviewed
ECG: Report Reviewed and Image Reviewed
[2023-04-13 08:00] LABS: Glucose - Point of Care 151 mg/dl (70-99)
[2023-04-13] MEDS: NOVOLOG FLEXPEN-MODERATE RESISTANCE 1 UNITS SC (08:00)
--- NOTE | 2023-04-13 08:13 | PN.DE.MGMTRT ---
Insulin Management
- -
04/07/2023: Diabetes Management Consult:
68 year old female admitted with chest pain due to ACS/NSTEMI. PMH includes: CAD, GALLO, HTN, Hypercholesterolemia, Chronic back pain, Morbid obesity and New Dx T2DM, A1C 8.9%. States she is familiar with DM from her sister who is battling cancer and
recent dx of T2DM.
Current DM regimen includes low corrective insulin. FBG 188 this AM, premeal 152-155.
Will start Metformin 500mg BID, Glipizide 5mg BID and Jardiance 10mg daily (cost $40/mth)
Cont low corrective insulin. Discussed plan of care with pt. Will reassess in am if she will need HS Lantus.
Pt declined glucose meter instructions at this time, states she has had a lot of information today and would like to receive instructions tomorrow when her other 2 sisters are here.
04/08/2023: Diabetes Management Follow up
Patient off the unit for testing. I spoke with CT PAs and patient nurse. Fasting glucose 168, will resume Jardiance 10 mg daily and glipizide 5 mg daily first dose when patient returns from testing. Patient for OR tomorrow, will follow.
04/09/2023: Patient for OR today. Will follow.
04/10/2022: Diabetes Management F/U:
Pt POD # 1 s/p CABG x 6. Doing well, remains on glycemic protocol, glucose in range of 112 to 1323 requiring 3.5 to 5 units of insulin/hr
Cont Glycemic protocol today, plan to transition to oral regimen tomorrow.
Oral Diabetes regimen upon d/c of insulin drip: Metformin 500mg BID, Glipizide 5mg BID and Jardiance 10mg daily
04/13/2022: Diabetes Management F/U:
Pt POD # 4 s/p CABG x 6. Doing well, transitioned off insulin drip on 04/11 to oral regimen. Glucose stable and in range, FBG 151, premeal 113 to 158
Will make no changes to current regimen. Cont Jardiance 10mg daily, Metformin 500mg BID and Glipizide 5mg BID
Diabetes History
- -
Type of Diabetes: 2
Pre-Admission Diabetes Regimen
04/13/23
02:56
Creatinine 0.7
Lab Results
Hemoglobin A1c 8.9 % (4.0-5.6) H 04/06/23 18:02
Insulin Pump Settings
IP Diabetes Regimen
04/12/23 04/12/23 04/13/23
12:19 17:15 02:56
Glucose 114 H
POC Glucose 113 H 158 H
04/13/23
07:58
Glucose
POC Glucose 151 H
Amount consumed: 100%
Patient Education
--- NOTE | 2023-04-13 08:25 | PTCARENOTE ---
assumed care of pt from previous shift RN, sinus rhythm on tele, VSS, pt denies CP or SOB. Lungs diminished, pox 96% on RA. +bs, tolerating PO intake, voids spontaneously. Post op dressings intact. PIV flushes easily. Plan of care reviewed w the pt
and questions encouraged.
[2023-04-13] MEDS: PLAVIX 75 MG PO (09:18)
[2023-04-13] MEDS: LOW STRENGTH ASPIRIN 81 MG PO (09:18)
[2023-04-13] MEDS: KCL 20 MEQ PO ×2 (09:18→22:03)
[2023-04-13] MEDS: PROTONIX 40 MG PO (09:18)
[2023-04-13] MEDS: VITAMIN C 1000 MG PO (09:18)
[2023-04-13] MEDS: SENOKOT-S 1 TABLET PO ×2 (09:19→19:51)
[2023-04-13] MEDS: MAGNESIUM OXIDE 500 MG PO ×2 (09:19→19:51)
[2023-04-13] MEDS: JARDIANCE 10 MG PO (09:19)
[2023-04-13] MEDS: GLUCOPHAGE 500 MG PO ×2 (09:19→16:10)
[2023-04-13] MEDS: TOPROL XL 12.5 MG PO (09:19)
[2023-04-13] MEDS: PACERONE 400 MG PO ×3 (09:19→21:14)
[2023-04-13] MEDS: GLUCOTROL 5 MG PO ×2 (09:19→16:09)
[2023-04-13] MEDS: LASIX PO (09:20)
[2023-04-13] MEDS: BACTROBAN 2% OINTMENT 1 APPLIC NASAL (09:20)
--- NOTE | 2023-04-13 09:33 | W.PN.CD ---
Addendum entered and electronically signed by Ameya Garsia MD 04/13/23 12:36:
I saw and examined the patient.
The SATELLITE INSTALLATION TECHNICIAN's note was reviewed and I agree with the note.
Patient stable postop. Postop pain appears well-controlled. Comfortable sitting in a chair. Remains in sinus rhythm.
Continue postop care as directed by CT surgery.
Continue aspirin beta-vito and statin. Eventually would consider addition of TABITHA inhibitor.
Original Note:
Today's Communication / Plan
-
continue diuresis and medical therapy for CAD
Impression / Plan
-
Assessment/Plan: 68 y/o female who presented with CP and was discovered to have multi-vessel CAD is now s/p CABG.
ACS/multivessel CAD:
-now s/p CABG x 6 (CRISS to LAD, GSV to D2, sGSV to RI/OM2, sGSV to PDA/RPLB), Dr. Haque 04/09/23
-intra-op JUSTUS: LVEF 55-60%
-post op EKG and tele with SR
-denies pain, sob
-peak troponin 15.3
-on asa and Plavix appropriately
-continue diuresis
Confusion:
-resolved.
-received transfusion, possible anemia contributing given ARGELIA
�
Dyslipidemia:
-LDL 141
-continue Lipitor 80mg daily
-goal LDL < 70
DM2:
-diabetic SATELLITE INSTALLATION TECHNICIAN on consult and assisting with management
-HgbA1C 8.9%
B/L ICA:
-to be seen by Dr. Chacko as an outpatient
-continue high dose statin, asa, Plavix
Post-op anemia - acute
-received transfusion with IV Lasix, continue
Subjective:
feeling well, denies cardiac complaints.
Physical Exam
Vital Signs/Labs
Vital Signs
Temp Pulse Resp BP Pulse Ox
98.2 F 86 18 136/73 96
04/13/23 07:20 04/13/23 08:00 04/13/23 07:20 04/13/23 07:20 04/13/23 08:42
04/12/23 04/13/23 04/14/23
06:59 06:59 06:59
Actual Weight 122 kg 120.2 kg
04/13/23 02:56
04/13/23 02:56
PT 14.2 Sec (11.4-14.6) 04/12/23 04:10
INR 1.12 04/12/23 04:10
APTT 36.9 Sec (23.4-35.0) H 04/09/23 14:45
Magnesium 2.2 mg/dl (1.6-2.3) 04/12/23 04:10
Triglycerides 492 mg/dl (10-149) H 04/07/23 03:51
LDL Cholesterol, Calc mg/dl 04/07/23 03:51
VLDL Cholesterol, Calc mg/dl (0-30) 04/07/23 03:51
HDL Cholesterol 43 mg/dl 04/07/23 03:51
04/06/23
19:00
Eoi-F-Gwycgmnckez Pept 236
Physical Exam
Constitutional: No acute distress
EENT: Anicteric and Moist mucous membranes
Cardiovascular: Rhythm & rate is regular and Pedal edema present (mild b/l LE)
Respiratory: Respiratory effort normal (diminished b/l bases)
GI: Soft and Non tender
Neuro/Psych: AO x 3
Other: Skin (warm, dry)
Data Reviewed
-
Date of Service: April 13, 2023
Medical Decision Making: Reviewed Test Results
EKG: Tracing Personally Visualized and interpreted
Echo: Report Reviewed by me
Labs: Labs Reviewed by me
--- NOTE | 2023-04-13 09:56 | PTCARENOTE ---
pt worked w PT/OT, send for 2 view CXR.
[2023-04-13] MEDS: NSS IV (10:14)
[2023-04-13] MEDS: LASIX 40 MG IV (10:35)
--- NOTE | 2023-04-13 11:20 | PTCARENOTE ---
Received pt from previous RN; pt AAOx3 and resting comfortably in chair with family at bedside; NSR on monitor and VSS; Lungs diminished; positive bowel sounds; pt voiding clear yellow urine; palpable pulses throughout; surgical sites C/D/I.
--- NOTE | 2023-04-13 11:45 | PN.DE ---
Diabetes Education
- -
Diabetes Education Consult
Met with Ms. Garrison and her 2 sisters- Ines and Carlos at bedside for glucose monitor instructions. Current A1C 8.9% and on oral diabetes regimen.
Discussed A1C and average blood sugar of 200, diabetes related short and custodial complications, life style modification and self management at home.
Provided with Contour Next EZ glucometer, instructions with fair return demonstration, result 131 mg/dl before lunch.
Discussed testing pattern and expected results and information marked in the take home booklet. Pt states she is having trouble with the testing technique because she feels extremely weak since surgery, and is hoping to go to rehab for strength
training.
Discussed and reviewed importance of reducing CHO intake, being active and checking BS to assess food/medication effect on his BS. Encourage physical activity and benefit of losing weight.
Discussed OP DSME classes, requested if she can attend with one of her sisters, was notified that program encourages family/spouses/SO to attend.
Will need RX for test strips and lancets for the Contour Next EZ, testing 2x/day at discharge- Will add supplies to amb orders.
Discussed plan of care including medications for management at home with pt and her 2 sisters, all verbalized understanding.
Will follow up in AM to reinforce education.
[2023-04-13] MEDS: ZOFRAN 4 MG IV (12:04)
--- NOTE | 2023-04-13 12:20 | CM ---
Pricing on Farxiga 10 mg qd through the patient's PP, ID# [id number], ph# , is $47 for 30 days and $94 for 90 days.
Jardiance 10mg qd is $47 for 30 and $94 for 90 days
[2023-04-13 13:03] LABS: Glucose - Point of Care 112 mg/dl (70-99)
--- NOTE | 2023-04-13 13:31 | CM ---
Chart reviewed. Patient is independent of ADLS, lives with her 2 sisters in a 2 [facility], 2 [facility], patient with a stair glide in the house, ambulates with a SPC outside the house. PT/OT evaluation recommending acute rehab. Referral placed to [facility].
Patient is agreeable to go to [facility] [place]. Referral placed. Await consult. Patient will need insurance authorization. Plan is for the patient to go to SNF vs Acute. CM to follow
[2023-04-13] MEDS: NOVOLOG FLEXPEN-MODERATE RESISTANCE SC ×2 (13:35→18:17)
[2023-04-13] MEDS: FERRLECIT 110 MG IV (13:47)
[2023-04-13] MEDS: FLEXERIL 10 MG PO (16:10)
--- NOTE | 2023-04-13 16:17 | PTCARENOTE ---
Assessment unchanged; NSR on monitor and VSS; pt ambulated in hallway with RN; pt having pain in right hip/knee area, CVPA updated and new orders placed Flexeril PO; pt resting in bed.
--- NOTE | 2023-04-13 16:53 | CON.MR ---
Consultation
Consultation Request
Date/Time Consultation Performed: 04/13/23
Performing Provider: Dr. Steinberg
Reason for Consultation: CABG
Medical History
-
Chief Complaint: Chest pain
History of Present Illness:
I had the opportunity to see Wilder Garrison in rehabilitation consultation. This is a 68 yo [place] woman with PMH significant for chronic back pain, admitted on 04/07 due to worsening back pain for the past several weeks that she initially
attributed to chronic back problems, though the symptoms were associated with substernal chest pain that worsened with activity and improved with rest. She was going to the chiropractor and also having her sister massage her back. Chest pain is
substernal, not associated with dyspnea, typically improves with rest over the past few weeks.
In ED she was found to be HTN emergency, and NSTEMI noted. Cardiology performed a left heart catheterization on 04/07 which showed extremely severe triple-vessel CAD with 60% left main coronary artery stenosis.� Inpatient CABG was recommended and
cardiothoracic surgery was consulted.�Did undergo CABG x6 on 04/09/23. Post-op was able to be extubated and chest tubes D/C'd.
We were consulted for rehab options. Patient seen this afternoon at bedside in the ICU. Patient states some chest incision pain, but denies any SOB, denies any dizziness or lightheadedness. No GI symptoms. Does note some left hand numbness and
tingling and weakness. The weakness is new since admission and states she did not have it at home. 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 Does use a cane at home with chronic LBP issues. No numbness or
paresthesias in the leg or in the face, denies any vision changes, no headache.
Lives with her sisters and helps care for sister with breast cancer. Does live in 2 story home but has a stair glide installed.
Social History
Functional Level Premorbidity:
Independent for all activities. Was using a cane previously due to chronic LBP.
Current Funct Level: Ambulation, Transfer, UE/LE Dressing:
Min A transfers, Min A to contact guard for ambulation
Living: With Family
Number of Floors: 2
Potential First Floor Set Up: No
Employment: Employed
Allergies / Home Medications
Allergy/AdvReac Type Severity Reaction Status Date / Time
No Known Allergies Allergy Unverified 04/06/23 17:26
Medication Instructions Recorded Confirmed Last Taken Type
aspirin 81 mg tablet,delayed 162 mg PO ONCE Blood Clot 04/06/23 04/06/23 04/06/23 History
release Prevention/Tx
ibuprofen 200 mg tablet (Advil) 200 mg PO Q6H PRN MILD PAIN 04/06/23 04/06/23 04/06/23 History
Review Of Systems
-
History Source: Patient
All other systems: Negative unless noted
Constitutional: Reports No Symptoms
Eye: Reports No Symptoms
EENT: Reports No Symptoms
Respiratory: Reports No Symptoms
Cardiac: Reports Chest Pain (At surgical site)
Abdomen/GI: Reports No Symptoms
: Reports No Symptoms
Musculoskeletal: Reports Joint Pain and Muscle Pain (LBP)
Integumentary: Reports No Symptoms
Neurological: Reports Weakness and Numbness
Psych: Reports No Symptoms
Endocrine: Reports No Symptoms
Hematologic/Lymphatic: Reports No Symptoms
Immunology: Reports No Symptoms
Physical Exam
Active Medications
Generic Name Dose Route Start Last Admin
Trade Name Freq PRN Reason Stop Dose Admin
Acetaminophen 650 mg 04/09/23 13:18 04/12/23 21:15
Acetaminophen 325 Mg Tablet PO 05/07/23 13:17 650 mg
Q4HPRN PRN Administration
mild pain,headache,temp >101F
Albuterol 2 puff 04/09/23 13:18
Albuterol Hfa [90 Mcg/Dose] Inhaler INH 05/07/23 13:17
R Q4HPRN PRN
wheezing/shortness of breath
Protocol
Albuterol Sulfate 2.5 mg 04/09/23 13:18
Albuterol Nebs 2.5 Mg/3 Ml Ampul INH 05/07/23 13:17
R Q4HPRN PRN
wheezing/shortness of breath
Protocol
Amiodarone HCl 400 mg 04/11/23 19:26 04/13/23 16:10
Amiodarone 200 Mg Tablet PO 05/07/23 15:59 400 mg
TID ALLYN Administration
Ascorbic Acid 1,000 mg 04/12/23 08:00 04/13/23 09:18
Ascorbic Acid 500 Mg Tablet PO 05/10/23 07:59 1,000 mg
DAILY ALLYN Administration
Aspirin 81 mg 04/10/23 08:00 04/13/23 09:18
Aspirin 81 Mg Chewable Tablet PO 05/08/23 07:59 81 mg
DAILY ALLYN Administration
Atorvastatin Calcium 80 mg 04/09/23 22:00 04/12/23 21:11
Atorvastatin (Lipitor) 80 Mg Tablet PO 05/07/23 21:59 80 mg
HS ALLYN Administration
Bisacodyl 10 mg 04/09/23 13:18
Bisacodyl 10 Mg Rectal Suppository RECTAL 05/07/23 13:17
DAILYPRN PRN
constipation
Clopidogrel Bisulfate 75 mg 04/10/23 08:00 04/13/23 09:18
Clopidogrel 75 Mg Tablet PO 05/08/23 07:59 75 mg
DAILY ALLYN Administration
Empagliflozin 10 mg 04/11/23 08:45 04/13/23 09:19
Empagliflozin (Jardiance) 10 Mg Tablet PO 05/09/23 08:44 10 mg
DAILY ALLYN Administration
Furosemide 40 mg 04/10/23 08:00 04/13/23 09:20
Furosemide 40 Mg Tablet PO 05/08/23 07:59 Not Given
DAILY ALLYN
Glipizide 5 mg 04/11/23 17:00 04/13/23 16:09
Glipizide 5 Mg Regular Release Tablet PO 05/09/23 16:59 5 mg
BID@0800,1700 ALLYN Administration
Sodium Chloride 500 mls @ 10 mls/hr 04/09/23 13:18 04/13/23 10:14
Nss IV 05/07/23 07:21 Not Given
CORDIS ALLYN
Insulin Aspart 0 units 04/11/23 11:30 04/13/23 13:35
Insulin Aspart Moderate Resistance 300 Units/3 Ml Pen.Injctr SC 05/09/23 11:29 Not Given
AC ALLYN
Protocol
Magnesium Hydroxide 30 ml 04/09/23 13:18
Milk Of Magnesia 30 Ml Cup PO 05/07/23 13:17
BIDPRN PRN
constipation
Magnesium Oxide 500 mg 04/10/23 08:00 04/13/23 09:19
Magnesium Oxide 500 Mg Tablet PO 05/08/23 07:59 500 mg
BID ALLYN Administration
Metformin HCl 500 mg 04/11/23 17:00 04/13/23 16:10
Metformin 500 Mg Regular Release Tablet PO 05/09/23 16:59 500 mg
BID@0800,1700 ALLYN Administration
Metoprolol Succinate 12.5 mg 04/13/23 08:00 04/13/23 09:19
Metoprolol 12.5 Mg Extended Release Dose (1/2 Of 25 Mg Xl Tablet) PO 05/11/23 07:59 12.5 mg
DAILY ALLYN Administration
Ondansetron HCl 4 mg 04/09/23 13:18 04/13/23 12:04
Ondansetron 4 Mg/2 Ml Vial IV 05/07/23 13:17 4 mg
Q8HPRN PRN Administration
nausea/vomiting
Pantoprazole Sodium 40 mg 04/12/23 08:00 04/13/23 09:18
Pantoprazole 40 Mg Delayed Release Tablet PO 05/10/23 07:59 40 mg
DAILY ALLYN Administration
Potassium Chloride 20 meq 04/10/23 08:00 04/13/23 09:18
Potassium Chloride 20 Meq Extended Release Tablet PO 05/08/23 07:59 20 meq
DAILY ALLYN Administration
Senna/Docusate Sodium 1 tablet 04/09/23 20:00 04/13/23 09:19
Docusate W/Senna (Leyla-Colace) Tablet PO 05/07/23 19:59 1 tablet
Q12 ALLYN Administration
Sodium Chloride 0 flush 04/07/23 01:00 04/11/23 08:14
Sodium Chloride 0.9% (Flush) Syringe IV 05/05/23 00:59 1 flush
PER PROTOCOL ALLYN Administration
Tramadol HCl 25 mg 04/10/23 20:43 04/12/23 06:33
Tramadol Hcl 50 Mg Tablet PO 05/08/23 20:42 25 mg
Q6HPRN PRN Administration
mild pain
Tramadol HCl 50 mg 04/10/23 20:43 04/13/23 02:46
Tramadol Hcl 50 Mg Tablet PO 05/08/23 20:42 50 mg
Q6HPRN PRN Administration
moderate pain
Vital Signs
Temp Pulse Resp BP Pulse Ox
98.4 F 91 20 118/74 97
04/13/23 16:22 04/13/23 16:13 04/13/23 16:22 04/13/23 16:13 04/13/23 16:22
Height 5 ft 6 in
Actual Weight 120.2 kg
Body Mass Index (BMI) 42.8
Physical Exam
Physical Exam:
General Appearance/Observation: Well-developed, well-nourished individual in no apparent distress. Lying comfortably in bed
Pain/Comfort Assessment: Incisional chest pain, mild to moderate severity
Mood/Affect: Appropriate
Integumentary/Operative Site:
Other Type of Wound: sternal wound dressing in place.
Eyes: Conjunctiva/Lids: normal Pupils: pupils equal round and reactive to light and Accommodation
Ears/Nose/Throat: oral mucosa moist, throat clear. Lips/Teeth/Gums: normal
Neck: No muscle spasm or tenderness
Cardiovascular: Heart: regular, no murmur
Pulses: dorsalis pedis 2+ bilaterally
Respiratory: Respiratory Effort/Chest Expansion: normal Auscultation: Clear to auscultation bilaterally
Gastrointestinal: abdomen not tender, no distension, normal abdominal bowel sounds
Rectal Exam: Deferred
Extremities: Edema: Mild bilateral LE no calf tenderness. Cyanosis: None Trophic changes: None
Neurology Exam:
Orientation: Alert, Oriented to self, Time, Place
Memory: Intact immediately and at 3 minutes
Higher cortical function
Speech: Intact
Repetition: Intact
Comprehension: Intact
Two step command: Intact
Naming: Intact
Cranial Nerves:
CNII: Pupillary light reflex: Intact Visual Field: Intact
CN III, IV, : Extraocular muscles: Intact. Good tracking, no nystagmus. Good visual acuity.
CN V: Facial Sensation at Forehead: Intact , Maxilla: Intact, Mandible: Intact
CN VII: Facial movement: Symmetric
CN VIII: Hearing: Normal
CN IX/X: Speech & swallow: Normal, Position of Uvula: Midline
CN XI: Shoulder shrug: Symmetric
CN XII: Tongue protrusion: Midline
Sensory:
Light touch: Decreased in the left thumb, and index and slightly on the left 5th digit compared to the right. No asymmetry in the feet or elsewhere.
Reflexes:
Biceps: 1+ bilaterally
Patellar: 1+ bilaterally
Achilles: 1+ bilaterally
Babinski: Downgoing bilaterally
Clonus: None
Bert: Slight positive on left
Cerebellar: Dysmetria/Ataxia: apraxia in LUE. FNF with dysmetria, slight left pronator drift. Poor control with rapid alternating movement in the left hand
Musculoskeletal:
Motor: (Manual muscle scale 0-5)
Muscle SA EF WE EE FF FA HF KE DF EHL PF
Right 5 5 5 5 5 5 4 5 5 5 5
Left 5 5 5 3+ 3 2 4 5 4+ 5 5
Tone: Normal in all extremities
Range of Motion: Passively within normal limits in all extremities
Lab Results
04/13/23 02:56
04/13/23 02:56
WBC 9.8 10^3/uL (4.8-10.8) 04/13/23 02:56
Hgb 9.3 g/dL (12.0-16.0) L 04/13/23 02:56
Hct 26.6 % (37.0-47.0) L 04/13/23 02:56
MCV 86.1 fL (81.0-99.0) 04/13/23 02:56
Plt Count 358 10^3/uL (130-400) D 04/13/23 02:56
PT 14.2 Sec (11.4-14.6) 04/12/23 04:10
INR 1.12 04/12/23 04:10
Sodium 136 mmol/L (135-145) 04/13/23 02:56
Potassium 3.7 mmol/L (3.5-5.1) 04/13/23 02:56
Chloride 103 mmol/L (98-107) 04/13/23 02:56
Carbon Dioxide 26 mmol/L (22-30) 04/13/23 02:56
BUN 29 mg/dl (7-17) H 04/13/23 02:56
Creatinine 0.7 mg/dL (0.6-1.0) 04/13/23 02:56
eGFR > 60.00 04/13/23 02:56
Glucose 114 mg/dl (70-99) H 04/13/23 02:56
Hemoglobin A1c 8.9 % (4.0-5.6) H 04/06/23 18:02
Calcium 8.4 mg/dl (8.4-10.2) 04/13/23 02:56
Magnesium 2.2 mg/dl (1.6-2.3) 04/12/23 04:10
Total Bilirubin 0.7 mg/dl (0.2-1.3) 04/09/23 02:08
Direct Bilirubin 0.5 mg/dl (0.0-0.4) H 04/08/23 04:37
AST 29 U/L (14-36) 04/09/23 02:08
ALT 23 U/L (0-35) 04/09/23 02:08
Alkaline Phosphatase 63 U/L (38-126) 04/09/23 02:08
Total Protein 5.5 g/dl (6.3-8.2) L 04/09/23 02:08
Albumin 3.4 g/dl (3.5-5.0) L 04/09/23 02:08
Diagnostic Results
As per HPI.
Comorbidities / Impairment Group
Comorbidities:
HTN, possible new CVA?
Impairment Group:
Cardiac/CABG
Assessment / Plan
Plan
Assessment:
68 year old [place] female with TN, CABGx6, deconditioning. Now noted with new weakness since admission in LUE>LLE
PM&R PT/OT to increase independence with ADLs, improve balance, coordination, endurance, strength, mobility, community reintegration, decreased burden of care on others and family education.
CVA: Certainly have concerns that she has had a CVA since admission - possibly due to severe HTN on presentation, although could be post-op with the CABG, embolic? Suggest neurology consultation and get an MRI of the brain to evaluate for stroke.
She is on ASA and plavix but doesn't appear there is other anti-coagulants that could put her at risk of hemorrhagic stroke. Likely ischemic.
Left hemiparesis: L hand and UE more affected than L LE and foot.
- Avoid using affected arm to help lift or pull patient as this will cause trauma to the shoulder.
-Bedside PT/OT and speech/swallow evaluation.
HTN: continue medications, monitor closely - may need to keep slightly elevated for cerebral perfusion, especially if CVA. And taper more slowly. On Toprol.
HLD: Statin
Coronary artery disease : Aspirin, statin, beta-vito, plavix s/p CABG x6
STEMI S/P CABG x 6: Sternal precautions. Aspirin, statin, BP control. Monitor incision, pain control.
Atrial fibrillation: On amiodarone
DM II: Accu-Cheks, insulin sliding scale, metformin, glipizide
Psych: Psychology consult. Monitor mood, adjust medications as needed.
Skin: monitor for pressure sores/rashes/lesions.
Pain: acetaminophen or oxycodone as needed. Has history of some chronic LBP
Bowel: Colace and Senna, PRN bisacodyl.
GI Prophylaxis: Pantoprazole
DVT Prophylaxis: Is on ASA/Plavix
Pulmonary: Incentive spirometry
Safety: Continue to reinforce assistance with all transfers.
Code Status: Full code
Dispo (date/plan/equipment needs): Will likely need acute rehabilitation before discharge home. Social history reviewed.
-Has mobility dysfunction and needing increased assistance
-Likely has had cerebrovascular insult - MRI to be ordered
Functional and Medical Goals: Modified Independent with ADL�s, ambulation, transfers
Summary
-
Things that must be addressed in Hospital prior to discharge:
1. Please consult PT/OT.
2. Please consult speech.
3. Blood pressure must be less than 180 systolic and 100 diastolic for 24 hours before being stable for transfer to SNF/acute rehab.
4. Please give blood pressure parameters. May need slightly elevated tolerance of BP for perfusion if CVA
5. Please comment on dvt chemoprophylaxis restrictions.
Discharge Destination: Acute rehab once medically stable and after further neurologic evaluation/diagnosis
Summary of recommendations:
- Discharge Destination: Acute rehab after neurologic eval/diagnosis
Will continue to follow patient.
Thank you for allowing me to care for your patient. Please contact me with any questions or concerns.
Data Reviewed
-
Radiology: Report Reviewed by me and Discussed with Physician
Labs: Labs Reviewed by me
Comments
-
This note was dictated using a voice recognition system. Please excuse any typographical errors from production specialist. If you believe there are any discrepancies, please notify our office.
[2023-04-13 18:14] LABS: Glucose - Point of Care 121 mg/dl (70-99)
--- NOTE | 2023-04-13 20:00 | PTCARENOTE ---
assumed care of pt from previous RN. pt A&Ox4, resting in bed. no c/o pain at this time. SR w/ 1st degree AVB on tele-monitor. HR 80s-90s. palpable peripheral pulses. B/L LE +1 edema noted. POX 95% on RA. lungs diminished at b/l bases. no c/o N/V.
pt c/o constipation. discussed expectations post-op re: BMs. discussed plan for PRN milk of magnesia tomorrow AM, pt in agreement w/ plan. all surgical sites stable, CDI. PIV intact. see worklist for complete nursing assessment, interventions, VS,
and I&Os.
[2023-04-13] MEDS: LIPITOR 80 MG PO (21:14)
[2023-04-13 21:18] LABS: Glucose - Point of Care 116 mg/dl (70-99)
[2023-04-14] VITALS (8 sets, daily range): BP systolic 108–143; BP diastolic 65–99; PULSE 93; O2SAT 95–96; BMI 42.2
--- NOTE | 2023-04-14 00:15 | PTCARENOTE ---
assessment remains unchanged. SR w/ 1st degree AVB on tele-monitor. HR 80s. POX 95% on RA. BP 118/64. no c/o pain at this time.
--- NOTE | 2023-04-14 04:00 | PTCARENOTE ---
assessment remains unchanged. SR on tele-monitor. HR 80s-90s. BP 133/65. POX 95% on RA. no c/o pain at this time. AM labs collected and sent.
[2023-04-14 04:21] LABS: Hemoglobin 9.6 g/dL (12.0-16.0); Mean Corp Hgb Conc. 34.3 g/dL (33.0-37.0); Mean Corpuscular Hgb 30.9 pg (27.0-31.0); Platelet Count 375 10^3/uL (130-400); Red Blood Cell Count 3.11 10^6/uL (4.20-5.40); Red Cell Dist. Width 13.5 % (11.5-14.5); White Blood Cell Count 9.5 10^3/uL (4.8-10.8)
[2023-04-14 04:36] LABS: Blood Urea Nitrogen 28 mg/dl (7-17); Calcium 8.2 mg/dl (8.4-10.2); Carbon Dioxide 29 mmol/L (22-30); Chloride 103 mmol/L (98-107); Estimated Creatinine Clearance 100 ml/min; Glucose 108 mg/dl (70-99); Magnesium 2.4 mg/dl (1.6-2.3); Potassium 3.7 mmol/L (3.5-5.1); Sodium 134 mmol/L (135-145); eGFR > 60.00
[2023-04-14] MEDS: MILK OF MAGNESIA 30 ML PO (04:57)
--- NOTE | 2023-04-14 05:23 | W.PN.CT ---
Today's Communication / Plan
-
Plan:
-No major issues overnight. Hemodynamically stable. Pt now fully oriented, was a bit confused postop until 2 days ago
-C/O inability to fully extend 3rd, 4th and 5th fingers of left hand, states noticed it yesterday, denies paresthesia, may be secondary to nerve (brachial plexus) impingement
during positioning for surgery
-H/H stable @ 9.6/28
-BP better, tolerating 12.5 mg Toprol XL daily. Will benefit from higher BP to help with perfusion given her severe carotid artery stenosis
-Tolerating current oral diabetic meds. Diabetes education/management following
-Encourage use of IS
-No temporary PW
-OOB into chair/Ambulate
-D/C today, awaiting [facility] placement
Assessment / Plan
-
- NSTEMI/mv-CAD - s/p CABG x 6 (CRISS to LAD, GSV to D2, sGSV to RI/OM2, sGSV to PDA/RPLB); b/l LE EVH by Dr. Haque on 04/09/23, pod #5
-Post-JUSTUS: Normal biventricular function w/ LVEF 65, mild MR, mild TR (unchanged from preop)
- HTN/HLD
- Class 3 obesity (BMI 43.4)
- DM II (HgA1c 8.9)
- Carotid stenosis: 50-69% on R and 70-99% on L
- Head/neck CTA 04/08/23:
NECK CTA: Moderate vascular calcification at the carotid bulb bilaterally. The carotid bulbs are in the midline at the level of the hyoid bone. Tortuous.
There is approximately 63% stenosis of the origin of the right internal carotid artery. There is a similar appearance to the origin of the left internal carotid artery however there is a higher grade stenosis within 1 cm of the origin measuring at
least 73% stenosis consistent with the ultrasound.
HEAD CTA: Patent g[place] of [place]. No filling defect. No focal stenosis or aneurysm.
- Elevated R hemidiaphragm
- Pre-existing 1st degree AV block
- Acute postop abnormal ECG
- Acute postop blood loss anemia
- Acute postop atelectasis/pleural effusion
- Acute postop hypovolemia with subsequent hypervolemia
- Acute postop confusion, likely d/t b/l carotid artery stenosis in the setting of anemia/anesthesia
Discussed patient care with: Cardiology, Nursing, Respiratory Therapy, Pharmacy and Care Team
Subjective
Procedure
�- s/p CABG x 6 (CRISS to LAD, GSV to D2, sGSV to RI/OM2, sGSV to PDA/RPLB); b/l LE EVH by Dr. Haque on 04/09/23
-
Date of Service: April 14, 2023
Pt c/o constipation and inability to fully extend 3rd, 4th and 5th fingers of left hand, states noticed it yesterday can feel
Objective Data
-
Lab Results
04/14/23 04:01
04/14/23 04:01
PT 14.2 Sec (11.4-14.6) 04/12/23 04:10
INR 1.12 04/12/23 04:10
APTT 36.9 Sec (23.4-35.0) H 04/09/23 14:45
Vital Signs
Vital Signs
Temp Pulse Resp BP Pulse Ox
98.5 F 87 16 133/65 86
04/14/23 04:00 04/14/23 04:03 04/14/23 04:00 04/14/23 04:03 04/14/23 04:03
CT Intake/Output/Weight
04/13/23 04/13/23 04/14/23
06:59 18:59 06:59
Intake Total 210 / 210
Output Total 1250 / 1900 650 / 1900
Balance -1040 / -1690 -650 / -1690
SaO2: 96 (RA)
Physical Exam
-
General: Awake, Oriented and AOx3
Cardiovascular: Regular rate & rhythm, No Murmurs and No Gallop
Respiratory: Decreased Breath Sounds
Sternum: Stable
Incision: Clean, Dry, Intact and Dressing Intact
Extremities: Edema +1
Data Reviewed
-
Lab Results: Results Reviewed
Medications: Active Meds Reviewed
Chest X-Ray: Report Reviewed and Image Reviewed
ECG: Report Reviewed and Image Reviewed
[2023-04-14] MEDS: KCL 40 MEQ PO (06:27)
--- NOTE | 2023-04-14 07:41 | PTCARENOTE ---
Assumed care of patient from mini shifter RN. AAO x 3 Pt denies c/o pain. SR w/ first degree AVB on monitor 90. Room air 98%. Using IS independently. Abdomen obese, with hypoactive bowel sounds t/o. Sternal Aquacel c,d,i. Bilateral leg
incisions MAINTENANCE GROUNDMAN, well approximated, and scabbed. Plus one bilateral lower extremity edema. Pulses palpable. continues to complain of 'weird' Lt hand feelings, able to move all digits w/o issue. Bowel regimen discussed.
[2023-04-14] MEDS: ZOFRAN 4 MG IV (08:07)
[2023-04-14] MEDS: NOVOLOG FLEXPEN-MODERATE RESISTANCE SC ×3 (08:10→17:12)
[2023-04-14 08:11] LABS: Glucose - Point of Care 126 mg/dl (70-99)
--- NOTE | 2023-04-14 08:19 | PN.DE.MGMTRT ---
Insulin Management
- -
04/07/2023: Diabetes Management Consult:
68 year old female admitted with chest pain due to ACS/NSTEMI. PMH includes: CAD, GALLO, HTN, Hypercholesterolemia, Chronic back pain, Morbid obesity and New Dx T2DM, A1C 8.9%. States she is familiar with DM from her sister who is battling cancer and
recent dx of T2DM.
Current DM regimen includes low corrective insulin. FBG 188 this AM, premeal 152-155.
Will start Metformin 500mg BID, Glipizide 5mg BID and Jardiance 10mg daily (cost $40/mth)
Cont low corrective insulin. Discussed plan of care with pt. Will reassess in am if she will need HS Lantus.
Pt declined glucose meter instructions at this time, states she has had a lot of information today and would like to receive instructions tomorrow when her other 2 sisters are here.
04/08/2023: Diabetes Management Follow up
Patient off the unit for testing. I spoke with CT PAs and patient nurse. Fasting glucose 168, will resume Jardiance 10 mg daily and glipizide 5 mg daily first dose when patient returns from testing. Patient for OR tomorrow, will follow.
04/09/2023: Patient for OR today. Will follow.
04/10/2022: Diabetes Management F/U:
Pt POD # 1 s/p CABG x 6. Doing well, remains on glycemic protocol, glucose in range of 112 to 1323 requiring 3.5 to 5 units of insulin/hr
Cont Glycemic protocol today, plan to transition to oral regimen tomorrow.
Oral Diabetes regimen upon d/c of insulin drip: Metformin 500mg BID, Glipizide 5mg BID and Jardiance 10mg daily
04/13/2022: Diabetes Management F/U:
Pt POD # 4 s/p CABG x 6. Doing well, transitioned off insulin drip on 04/11 to oral regimen. Glucose stable and in range, FBG 151, premeal 113 to 158
Will make no changes to current regimen. Cont Jardiance 10mg daily, Metformin 500mg BID and Glipizide 5mg BID
04/14/2023 Diabetes Management Follow up
POD 5 s/p CABG x 6. Patient doing well started on Jardiance 10 mg daily with glipizide 5 mg BID and metformin 500 mg BID. Glucose stable, 112 to 151, fasting this AM 126. Will make no change to current regimen. Patient has been provided with a
glucose monitor and instructed, along with sisters.
Diabetes History
- -
Type of Diabetes: 2
Pre-Admission Diabetes Regimen
04/14/23
04:01
Creatinine 0.7
Lab Results
Hemoglobin A1c 8.9 % (4.0-5.6) H 04/06/23 18:02
Insulin Pump Settings
IP Diabetes Regimen
04/13/23 04/13/23 04/13/23
12:57 18:13 21:16
Glucose
POC Glucose 112 H 121 H 116 H
04/14/23 04/14/23
04:01 08:09
Glucose 108 H
POC Glucose 126 H
Meal type: Breakfast
Patient Education
--- NOTE | 2023-04-14 08:40 | W.PN.CD ---
Today's Communication / Plan
-
-No major events overnight.
-Remains in sinus rhythm.
-Continue current medications.
-Being discharged today to [facility]; outpatient follow-up with Cardiology.
Impression / Plan
-
Assessment/Plan: 68 y/o female who presented with CP and was discovered to have multi-vessel CAD is now s/p CABG.
ACS/multivessel CAD:
-now s/p CABG x 6 (CRISS to LAD, GSV to D2, sGSV to RI/OM2, sGSV to PDA/RPLB), Dr. Haque 04/09/23
-intra-op JUSTUS: LVEF 55-60%
-post op EKG and tele with SR
-peak troponin 15.3
-Continue aspirin, Plavix, high-dose of atorvastatin.
�
Dyslipidemia:
-LDL 141
-continue Lipitor 80mg daily
-goal LDL < 70
DM2:
-diabetic FLYING SQUAD SALESPERSON on consult and assisting with management
-HgbA1C 8.9%
B/L ICA:
-to be seen by Dr. Chacko as an outpatient
-continue high dose statin, asa, Plavix.
Subjective:
No major events overnight. Remains in sinus rhythm.
Physical Exam
Vital Signs/Labs
Vital Signs
Temp Pulse Resp BP Pulse Ox
98.0 F 91 16 133/65 98
04/14/23 07:38 04/14/23 07:38 04/14/23 07:38 04/14/23 04:03 04/14/23 07:38
04/13/23 04/14/23 04/15/23
06:59 06:59 06:59
Actual Weight 120.2 kg 118.5 kg
04/14/23 04:01
04/14/23 04:01
PT 14.2 Sec (11.4-14.6) 04/12/23 04:10
INR 1.12 04/12/23 04:10
APTT 36.9 Sec (23.4-35.0) H 04/09/23 14:45
Magnesium 2.4 mg/dl (1.6-2.3) H 04/14/23 04:01
Triglycerides 492 mg/dl (10-149) H 04/07/23 03:51
LDL Cholesterol, Calc mg/dl 04/07/23 03:51
VLDL Cholesterol, Calc mg/dl (0-30) 04/07/23 03:51
HDL Cholesterol 43 mg/dl 04/07/23 03:51
04/06/23
19:00
[id number] Pept 236
Physical Exam
Constitutional: No acute distress and Comfortable
EENT: Anicteric
Cardiovascular: Rhythm & rate is regular, Systolic murmur absent, Pedal edema present (trace) and S1S2 is normal
Respiratory: Respiratory effort normal and Lungs clear to auscul.
GI: Soft
Other: Skin (Warm, dry, intact)
Data Reviewed
-
Date of Service: April 14, 2023
EKG: Tracing Personally Visualized and interpreted (Telemetry: Sinus rhythm)
Medical Tests (PFT, Pathology etc): Discussed with Nurse
[2023-04-14] MEDS: VITAMIN C 1000 MG PO (09:00)
[2023-04-14] MEDS: PLAVIX 75 MG PO (09:00)
[2023-04-14] MEDS: PROTONIX 40 MG PO (09:00)
[2023-04-14] MEDS: SENOKOT-S 1 TABLET PO (09:00)
[2023-04-14] MEDS: GLUCOPHAGE 500 MG PO ×2 (09:00→17:13)
[2023-04-14] MEDS: TOPROL XL 12.5 MG PO (09:00)
[2023-04-14] MEDS: LOW STRENGTH ASPIRIN 81 MG PO (09:00)
[2023-04-14] MEDS: JARDIANCE 10 MG PO (09:00)
[2023-04-14] MEDS: PACERONE 400 MG PO ×2 (09:00→16:05)
[2023-04-14] MEDS: GLUCOTROL 5 MG PO ×2 (09:00→17:13)
[2023-04-14] MEDS: NSS IV (09:01)
[2023-04-14] MEDS: KCL PO (09:01)
[2023-04-14] MEDS: CITROMA 300 ML PO (09:32)
--- NOTE | 2023-04-14 09:46 | PTCARENOTE ---
Sternal Aquacel removed, incision GLORY, scabbed , well approximated, retention sutures in place.
--- NOTE | 2023-04-14 10:01 | PTCARENOTE ---
Pt requesting mag citrate to assist with her having a bowel movement today. Discussed with CT ARRANGING FUNERAL DIRECTOR. Orders obtained.
--- NOTE | 2023-04-14 11:23 | CON.NEURO ---
Neuro Assessment/Plan
Assessment
IMPRESSIONS/RECOMMENDATIONS:
Abrupt change in left hand strength following life-saving coronary artery bypass graft surgery
Most likely secondary to a partial left radial nerve palsy which in turn was most likely due to excessive pressure on that nerve during surgery
Plan
Check blood work for potential metabolic causes, although unlikely
Supportive care with rehabilitation evaluations
Will continue to follow patient as needed. Thank you.
Consultation
Order
Date of Consultation: 04/14/23
Requesting Provider: Cardiothoracic surgery
Reason for Consult: Left hand weakness
Subjective/Objective
Subjective Data
Date of Service: April 14, 2023
R-handed
Left hand numbness started yesterday morning, and patient noted difficulty with fine-movements.
Not previously. Strength in left hand has improved since start. Not dropping items. Unable to extend the left hand fully. Numbness has resolved.
No issues with prior hand use or difficulty with the right hand. Associated symptoms are none. No known modifying factors.
Objective Data
Vital Signs
Temp Pulse Resp BP Pulse Ox
36.7 C 92 16 117/99 96
04/14/23 07:38 04/14/23 09:37 04/14/23 07:38 04/14/23 09:37 04/14/23 09:37
Lab Results
04/14/23 04:01
04/14/23 04:01
PT 14.2 Sec (11.4-14.6) 04/12/23 04:10
INR 1.12 04/12/23 04:10
APTT 36.9 Sec (23.4-35.0) H 04/09/23 14:45
Sodium 134 mmol/L (135-145) L 04/14/23 04:01
Potassium 3.7 mmol/L (3.5-5.1) 04/14/23 04:01
BUN 28 mg/dl (7-17) H 04/14/23 04:01
Glucose 108 mg/dl (70-99) H 04/14/23 04:01
Calcium 8.2 mg/dl (8.4-10.2) L 04/14/23 04:01
Tud-C-Jveziuyexcg Pept 236 pg/ml 04/06/23 19:00
LDL Cholesterol Direct 141 mg/dl 04/07/23 03:51
LDL Cholesterol, Calc mg/dl 04/07/23 03:51
Patient Allergies
No Known Allergies Allergy (Unverified 04/06/23 17:26)
Review of Systems
-
History Source: Patient
All other systems: Reviewed and negative
Respiratory: Negative Trouble Breathing
Cardiac: Negative Chest Pain
Musculoskeletal: Negative Back Pain or Neck Pain
Neuro: Negative Dizzy or Headache
Physical Exam
-
General: No Apparent Distress, Obese and Appears Stated Age
Eyes: Round OU, [place] Conjunctivae and No Ptosis
HEENT: Anicteric and Moist Mucous Membranes
Neck: Full Range of Motion
Respiratory: No Dyspnea
Cardiac: No JVD
GI: Non-distended
Extremities: No Clubbing, No Cyanosis and No Edema
Psych: Intact Judgement/Insight
Extended Neurological Exam
Mood & Affect: Mood Unremarkable and Affect Unremarkable
Attention Span & Concentration: Awake, Alert, Interactive and No Difficulty with 2 Step Request
Memory: Unremarkable
Tremor: Hand Tremor Absent and Head Tremor Absent
Speech: Quality Unremarkable and Quantity Unremarkable
Cranial Nerve II: Left Eye: Pupillary Reactivity Unremarkable, Pupillary Size Unremarkable and Visual Colbert Grossly Intact
Cranial Nerve II: Right Eye: Pupillary Reactivity Unremarkable, Pupillary Size Unremarkable and Visual Colbert Grossly Intact
Cranial Nerves III, IV, : Extraocular Movement: Grossly Intact
Cranial Nerve VII: Facial Symmetry: Normal Facial Symmetry
Cranial Nerve VIII: Hearing: Unremarkable Hearing to Normal Conversational Volume
Cranial Nerve XI: Shoulder Shrug: Unremarkable
Cranial Nerve XII: Tongue Protusion: Midline
Muscle Strength, Overall: Full Throughout and Other (Left hand finger flexors 4 out of 5, intact APB, mildly reduced finger extensors; intact right hand and bilateral lower extremities)
Muscle Bulk & Tone: Bulk Unremarkable and Tone Unremarkable
Pronator Drift: No Drift in Upper Extremities
Deep Tendon Reflexes: Absent Throughout
Cold Sensation: Testing in Upper Extremities and Reduced (Minimally palmar surface)
Vibration Sensation: Testing in Upper Extremities and Reduced Mildly Distally
Touch Sensation: Unremarkable
Coordination: Lssvhp-yvpw-aittmz Testing Unremarkable
Babinski Sign: Absent Bilaterally
Gait & Station: Unable to Assess
Data Reviewed
-
Labs: Report Reviewed
Reviewed with: Physician Cosmetician
Old Records: Summarized
Medications
-
Active Medications
Generic Name Dose Route Start Last Admin
Trade Name Freq PRN Reason Stop Dose Admin
Acetaminophen 650 mg 04/09/23 13:18 04/12/23 21:15
Acetaminophen 325 Mg Tablet PO 05/07/23 13:17 650 mg
Q4HPRN PRN Administration
mild pain,headache,temp >101F
Albuterol 2 puff 04/09/23 13:18
Albuterol Hfa [90 Mcg/Dose] Inhaler INH 05/07/23 13:17
R Q4HPRN PRN
wheezing/shortness of breath
Protocol
Albuterol Sulfate 2.5 mg 04/09/23 13:18
Albuterol Nebs 2.5 Mg/3 Ml Ampul INH 05/07/23 13:17
R Q4HPRN PRN
wheezing/shortness of breath
Protocol
Amiodarone HCl 400 mg 04/11/23 19:26 04/14/23 09:00
Amiodarone 200 Mg Tablet PO 05/07/23 15:59 400 mg
TID ALLYN Administration
Ascorbic Acid 1,000 mg 04/12/23 08:00 04/14/23 09:00
Ascorbic Acid 500 Mg Tablet PO 05/10/23 07:59 1,000 mg
DAILY ALLYN Administration
Aspirin 81 mg 04/10/23 08:00 04/14/23 09:00
Aspirin 81 Mg Chewable Tablet PO 05/08/23 07:59 81 mg
DAILY ALLYN Administration
Atorvastatin Calcium 80 mg 04/09/23 22:00 04/13/23 21:14
Atorvastatin (Lipitor) 80 Mg Tablet PO 05/07/23 21:59 80 mg
HS ALLYN Administration
Bisacodyl 10 mg 04/09/23 13:18
Bisacodyl 10 Mg Rectal Suppository RECTAL 05/07/23 13:17
DAILYPRN PRN
constipation
Clopidogrel Bisulfate 75 mg 04/10/23 08:00 04/14/23 09:00
Clopidogrel 75 Mg Tablet PO 05/08/23 07:59 75 mg
DAILY ALLYN Administration
Empagliflozin 10 mg 04/11/23 08:45 04/14/23 09:00
Empagliflozin (Jardiance) 10 Mg Tablet PO 05/09/23 08:44 10 mg
DAILY ALLYN Administration
Furosemide 40 mg 04/10/23 08:00 04/13/23 09:20
Furosemide 40 Mg Tablet PO 05/08/23 07:59 Not Given
DAILY ALLYN
Glipizide 5 mg 04/11/23 17:00 04/14/23 09:00
Glipizide 5 Mg Regular Release Tablet PO 05/09/23 16:59 5 mg
BID@0800,1700 ALLYN Administration
Sodium Chloride 500 mls @ 10 mls/hr 04/09/23 13:18 04/14/23 09:01
Nss IV 05/07/23 07:21 Not Given
CORDIS ALLYN
Insulin Aspart 0 units 04/11/23 11:30 04/14/23 08:10
Insulin Aspart Moderate Resistance 300 Units/3 Ml Pen.Injctr SC 05/09/23 11:29 Not Given
AC ALLYN
Protocol
Magnesium Hydroxide 30 ml 04/09/23 13:18 04/14/23 04:57
Milk Of Magnesia 30 Ml Cup PO 05/07/23 13:17 30 ml
BIDPRN PRN Administration
constipation
Magnesium Oxide 500 mg 04/10/23 08:00 04/13/23 19:51
Magnesium Oxide 500 Mg Tablet PO 05/08/23 07:59 500 mg
BID ALLYN Administration
Metformin HCl 500 mg 04/11/23 17:00 04/14/23 09:00
Metformin 500 Mg Regular Release Tablet PO 05/09/23 16:59 500 mg
BID@0800,1700 ALLYN Administration
Metoprolol Succinate 12.5 mg 04/13/23 08:00 04/14/23 09:00
Metoprolol 12.5 Mg Extended Release Dose (1/2 Of 25 Mg Xl Tablet) PO 05/11/23 07:59 12.5 mg
DAILY ALLYN Administration
Ondansetron HCl 4 mg 04/09/23 13:18 04/14/23 08:07
Ondansetron 4 Mg/2 Ml Vial IV 05/07/23 13:17 4 mg
Q8HPRN PRN Administration
nausea/vomiting
Pantoprazole Sodium 40 mg 04/12/23 08:00 04/14/23 09:00
Pantoprazole 40 Mg Delayed Release Tablet PO 05/10/23 07:59 40 mg
DAILY ALLYN Administration
Potassium Chloride 20 meq 04/10/23 08:00 04/14/23 09:01
Potassium Chloride 20 Meq Extended Release Tablet PO 05/08/23 07:59 Not Given
DAILY ALLYN
Senna/Docusate Sodium 1 tablet 04/09/23 20:00 04/14/23 09:00
Docusate W/Senna (Leyla-Colace) Tablet PO 05/07/23 19:59 1 tablet
Q12 ALLYN Administration
Sodium Chloride 0 flush 04/07/23 01:00 04/11/23 08:14
Sodium Chloride 0.9% (Flush) Syringe IV 05/05/23 00:59 1 flush
PER PROTOCOL ALLYN Administration
Tramadol HCl 25 mg 04/10/23 20:43 04/12/23 06:33
Tramadol Hcl 50 Mg Tablet PO 05/08/23 20:42 25 mg
Q6HPRN PRN Administration
mild pain
Tramadol HCl 50 mg 04/10/23 20:43 04/13/23 02:46
Tramadol Hcl 50 Mg Tablet PO 05/08/23 20:42 50 mg
Q6HPRN PRN Administration
moderate pain
Home Medications
Medication Instructions Recorded
aspirin 81 mg tablet,delayed 162 mg PO ONCE Blood Clot 04/06/23
release Prevention/Tx
ibuprofen 200 mg tablet (Advil) 200 mg PO Q6H PRN MILD PAIN 04/06/23
blood sugar diagnostic (Contour ##100 04/14/23
Next Test Strips)
empagliflozin 10 mg tablet 10 mg PO DAILY #30 tabs 04/14/23
(Jardiance)
glipizide 5 mg tablet 5 mg PO BID@0800,1700 #60 tabs 04/14/23
lancets 21 gauge (Color Lancets) ##100 04/14/23
metformin 500 mg tablet 500 mg PO BID@0800,1700 #60 tabs 04/14/23
tramadol 50 mg tablet 25 mg PO Q6HPRN PRN mild pain #30 04/14/23
tabs
Past History
Past History
ED Past Medical History: HTN
ED Past Surgical History: Cardiac (CABG March 2023) and Orthopedic (Lumbar surgery many years ago)
Social History
Tobacco: Non-smoker
Drug: None
Living: with family
Employment: Retired
Family History
Family History: Other (Sister with breast cancer)
--- NOTE | 2023-04-14 11:54 | PTCARENOTE ---
Ambulated to bathroom and able to produce a very large soft BM in toilet.
[2023-04-14 12:44] LABS: Glucose - Point of Care 98 mg/dl (70-99)
--- NOTE | 2023-04-14 13:13 | CM ---
PT/OT evaluation recommending Acute Rehab. The patient and family are agreeable. Authorization obtained from [facility] 04/14/23, auth # [id number], NRD 04/20/23
--- NOTE | 2023-04-14 13:22 | W.DCSUMMARY ---
Discharge Summary
Discharge Data
Date of Admission: 04/06/23
Date of Discharge: 04/14/23
-
Pending Results: No
Hospital Course
Primary care physician: N/A
Outpatient animal keeper: N/A
Inpatient consultants: Srikanth Nelson ([facility]), neurology
Procedures:
1. Coronary artery bypass grafting times
Primary Diagnosis:
1. Coronary artery disease/non-ST elevation myocardial infarction
Secondary Diagnoses:
1. Hypertension
2. Hyperlipidemia
3. Type 2 diabetes (A1c 8.9)
4. Obesity (BMI 42.2)
5. Carotid stenosis: 50-69% on R and 70-99% on L
6. Acute surgical blood loss anemia-expected
7. Acute postop atelectasis/pleural effusion
8. Acute postop confusion, likely d/t b/l carotid artery stenosis in the setting of anemia/anesthesia
HPI: Wilder Garrison is a 68-year-old female electively admitted on 04/09 for CABG
Hospital course: Patient underwent CABG x 6 with FAUSTIN to LAD, saphenous vein to diagonal 2, saphenous vein to ramus and OM 2, saphenous vein to PDA and RPL B with Dr. Haque. Patient received no intraoperative blood products and did not have
temporary pacemaker wires placed. Patient returned to CVICU on Levophed, dobutamine, Precedex, and insulin. She was extubated at 11:15 PM. Patient was declined and Sousa removed on postoperative day #1. Patient was started on aspirin and Plavix.
Patient experienced mild confusion beta-vito was held to improve her blood pressure in setting of carotid stenosis. Dobutamine was discontinued. Patient received 1 unit of packed red blood cells for hemoglobin 8.3 hemoglobin stabilized and 9.6
on day of discharge. Patient was evaluated evaluated by acute rehab and evaluated by neurology for a complaint of left hand 3rd-5th digit numbness. Neurology felt this was a brachial plexus injury and would heal in time. Patient is stable for
transfer to [facility] today. 4 retention sutures and 1 staple were removed from the sternotomy incision. Aquacel was removed and incision looks clean, dry, without erythema.
Home medication changes:
see below
Discharge Plan
-
Patient Disposition: Acute Rehab Facility
Discharge Diagnosis/Procedures: NSTEMI, s/p CABG
Condition: Fair
Diet: Low Cholesterol, 2 Gram Sodium and Diabetic, Carb Controlled
Activity: No strenuous activity
Driving Restrictions: Not until seen by your Dr
Bathing Restrictions: OK to Shower
Other Services: Cardiac Rehab
Specialty Instructions: Weigh Daily- Call MD for wt gain/loss 3 lbs overnight/5 lbs in 1 week
Stand Alone Forms: DC Instructions- Cath/EP Lab
Referrals:
[facility] [Other]
[facility] [Outside] - 05/20/23 1:00 pm
(Cardiac Rehab Orientation appointment is on Thursday05/20/2023@ 1pm.
The Cardiac Rehab gym is located on the first floor of the [facility].)
Blessing Santos CRNP [Specified Professional Personl] - 05/18/23 9:30 am
David Chacko MD [Active] - (See Dr Chacko in 4-6 wks to discuss carotid stenosis options)
Mp Haque MD [Active] - 05/12/23 2:30 pm
UNKNOWN - PT DOES,NOT KNOW [Family Provider] -
Prescriptions:
New
atorvastatin 80 mg Tablet
80 mg PO HS Qty: 30 1RF
clopidogrel 75 mg Tablet
75 mg PO DAILY Qty: 30 0RF
ascorbic acid (vitamin C) [Vitamin C] 500 mg Tablet
1,000 mg PO DAILY Qty: 30 1RF
pantoprazole 40 mg Tablet,Delayed Release (/Ec)
40 mg PO DAILY Qty: 30 1RF
metoprolol succinate 25 mg Tablet Extended Release 24 Hr
12.5 mg PO DAILY Qty: 30 1RF
sennosides-docusate sodium [Stool Softener-Stimulant Laxat] 8.6-50 mg Tablet
1 tab PO Q12 Qty: 30 0RF
tramadol 50 mg Tablet
25 mg PO Q6HPRN PRN (Reason: mild pain) Qty: 30 0RF
metformin 500 mg Tablet
500 mg PO BID@0800,1700 Qty: 60 0RF
(DME) Contour Next Test Strips Strip
Qty: 100 0RF
Rx Instructions:
Test once daily in pattern provided As Directed
E11.65
glipizide 5 mg Tablet
5 mg PO BID@0800,1700 Qty: 60 0RF
(DME) lancets [Color Lancets] 21 gauge Misc
Qty: 100 0RF
Rx Instructions:
Test once daily in pattern provided As Directed
E11.65
lancets for contour next EZ
Jardiance 10 mg Tablet
10 mg PO DAILY Qty: 30 0RF
Rx Instructions:
E11.65
acetaminophen 325 mg Tablet
650 mg PO Q4HPRN PRN (Reason: mild pain,headache,temp >101F ) Qty: 0 0RF
Continued
aspirin 81 mg Tablet,Delayed Release (Dr/Ec)
162 mg PO ONCE
Discontinued
ibuprofen [Advil] 200 mg Tablet
200 mg PO Q6H PRN (Reason: MILD PAIN)
Discharge Orders:
Discharge Patient (As Directed); Ordered 04/14/23
Ordered By: Betty Mcknight
Care Plan Goals
Care Plan Goals:
Problem: Readiness for enhanced knowledge related to diagnosis and treatment plan
Goal: Understand your diagnosis and treatment plan needs, including medications if applicable.
Instructions: Know your diagnosis, underlying causes and treatment plan options, including medications if applicable. Consult with your health care team to learn about your diagnosis and treatment plan, including medications if applicable.
[2023-04-14 17:23] LABS: Glucose - Point of Care 116 mg/dl (70-99)
== END 2023-04-14 18:50 | DRG 234 ==
LOC: CVICU 23:42
PROVIDERS: Clinical Nurse Specialist Acute Care; Emergency Medicine; Internal Medicine; Internal Medicine Cardiovascular Disease; Nurse Practitioner; Physician Assistant Medical; ADMITTING PHYSICIAN Internal Medicine; ATTENDING PHYSICIAN Thoracic Surgery (Cardiothoracic Vascular Surgery); CONSULT PHYSICIAN Internal Medicine Cardiovascular Disease; CONSULT PHYSICIAN Internal Medicine Critical Care Medicine; CONSULT PHYSICIAN Psychiatry & Neurology Neurology; EMERGENCY PHYSICIAN Emergency Medicine; OTHER PHYSICIAN Physical Medicine & Rehabilitation; OTHER PHYSICIAN Physician Assistant Surgical
PROC: B2151ZZ Fluoroscopy of Left Heart using Low Osmolar Contrast (ICD-10-PCS; 2023-04-07)
PROC: B2111ZZ Fluoroscopy of Multiple Coronary Arteries using Low Osmolar Contrast (ICD-10-PCS; 2023-04-07)
PROC: 4A023N7 Measurement of Cardiac Sampling and Pressure, Left Heart, Percutaneous Approach (ICD-10-PCS; 2023-04-07)
PROC: 06BP4ZZ Excision of Right Saphenous Vein, Percutaneous Endoscopic Approach (ICD-10-PCS; 2023-04-09)
PROC: 06BQ4ZZ Excision of Left Saphenous Vein, Percutaneous Endoscopic Approach (ICD-10-PCS; 2023-04-09)
PROC: 5A1221Z Performance of Cardiac Output, Continuous (ICD-10-PCS; 2023-04-09)
PROC: 021309W Bypass Coronary Artery, Four or More Arteries from Aorta with Autologous Venous Tissue, Open Approach (ICD-10-PCS; 2023-04-09)
PROC: 02100ZC Bypass Coronary Artery, One Artery from Thoracic Artery, Open Approach (ICD-10-PCS; 2023-04-09)
PROC: 30233N1 Transfusion of Nonautologous Red Blood Cells into Peripheral Vein, Percutaneous Approach (ICD-10-PCS; 2023-04-11)
DX: I21.4 Non-ST elevation (NSTEMI) myocardial infarction (principal); Z68.42 Body mass index [BMI] 45.0-49.9, adult; D62 Acute posthemorrhagic anemia; I16.1 Hypertensive emergency; E87.1 Hypo-osmolality and hyponatremia; J98.11 Atelectasis; J90 Pleural effusion, not elsewhere classified; I25.119 Atherosclerotic heart disease of native coronary artery with unspecified angina pectoris; E66.01 Morbid (severe) obesity due to excess calories; I10 Essential (primary) hypertension; I65.23 Occlusion and stenosis of bilateral carotid arteries; E11.65 Type 2 diabetes mellitus with hyperglycemia; Z79.82 Long term (current) use of aspirin
CPT/HCPCS: 70496; 70498; 71045; 71046; 71275; 72040; 80048; 80053; 80061; 81003; 81015; 82248; 82330; 82565; 82805; 82810; 82947; 82962; 83036; 83721; 83735; 83880; 84132; 84302; 84484; 84520; 85014; 85018; 85025; 85027; 85049; 85610; 85730; 86850; 86900; 86901; 86920; 87086; 93005; 93306; 93312; 93320; 93325; 93458; 93880; 93970; 94002; 96365; 96366; 96367; 96375; 97116; 97163; 97167; 97530; 97535; 99291; C1713; C1894; J2916; P9016; P9045; P9047; Q9967

== ENCOUNTER 2023-05-22 10:33 | Outpatient (RCR) | payer OTHER, SELFPAY | END 2023-05-22 23:59 | disposition home or self-care (01) | LOC: ROT 10:33 | PROVIDERS: ATTENDING PHYSICIAN Physical Medicine & Rehabilitation; FAMILY PHYSICIAN Family Medicine | DX: R29.898 Other symptoms and signs involving the musculoskeletal system (principal); Z95.1 Presence of aortocoronary bypass graft; Z73.6 Limitation of activities due to disability | CPT/HCPCS: 97010; 97110; 97112; 97116; 97162; 97166; 97530; 97535 ==

== ENCOUNTER → 2023-06-19 08:14 | Outpatient (REF) | payer OTHER, SELFPAY ==
[2023-06-19 09:31] LABS: ALT (SGPT) 30 U/L (0-35); AST (SGOT) 27 U/L (14-36); HDL Cholesterol 42 mg/dl; LDL Cholesterol, Calculated 60 mg/dl; Total Cholesterol 145 mg/dl (50-199); Triglyceride 219 mg/dl (10-149); Very Low Density Lipoprotein 43 mg/dl (0-30)
== END ==
LOC: REG 08:14
PROVIDERS: ATTENDING PHYSICIAN Nurse Practitioner
DX: E78.5 Hyperlipidemia, unspecified (principal)
CPT/HCPCS: 36415; 80061; 84450; 84460

== ENCOUNTER 2023-06-19 10:29 | Outpatient (RCR) | payer OTHER, SELFPAY | END 2023-06-19 23:59 | disposition home or self-care (01) | LOC: ROT 10:29 | PROVIDERS: ATTENDING PHYSICIAN Physical Medicine & Rehabilitation; FAMILY PHYSICIAN Family Medicine | DX: I25.810 Atherosclerosis of coronary artery bypass graft(s) without angina pectoris (principal); E10.41 Type 1 diabetes mellitus with diabetic mononeuropathy; I25.42 Coronary artery dissection; Z95.1 Presence of aortocoronary bypass graft; Z74.09 Other reduced mobility; R29.898 Other symptoms and signs involving the musculoskeletal system; Z73.6 Limitation of activities due to disability | CPT/HCPCS: 97110; 97112; 97116; 97530 ==

== ENCOUNTER 2023-06-23 16:44 | Outpatient (RCR) | payer OTHER, SELFPAY ==
[2023-06-23 14:40] LABS: Glucose - Point of Care 82 mg/dl (70-99)
[2023-06-23 15:19] LABS: Glucose - Point of Care 89 mg/dl (70-99)
== END 2023-06-23 23:59 | disposition home or self-care (01) ==
LOC: CRHB 16:44
PROVIDERS: ATTENDING PHYSICIAN Internal Medicine Cardiovascular Disease
DX: I25.10 Atherosclerotic heart disease of native coronary artery without angina pectoris (principal); Z95.1 Presence of aortocoronary bypass graft; I25.2 Old myocardial infarction
CPT/HCPCS: 82962; G0422

== ENCOUNTER 2023-06-29 10:56 | Outpatient (RCR) | payer OTHER, SELFPAY ==
[2023-06-29 11:02] LABS: Glucose - Point of Care 74 mg/dl (70-99)
[2023-06-29 11:21] LABS: Glucose - Point of Care 79 mg/dl (70-99)
== END 2023-06-29 23:59 | disposition home or self-care (01) ==
LOC: CRHB 10:56
PROVIDERS: ATTENDING PHYSICIAN Internal Medicine Cardiovascular Disease
DX: I25.10 Atherosclerotic heart disease of native coronary artery without angina pectoris (principal); Z95.1 Presence of aortocoronary bypass graft
CPT/HCPCS: 82962; G0422; G0423

== ENCOUNTER → 2023-08-06 08:27 | Outpatient (REF) | payer OTHER, MEDICARE, SELFPAY ==
[2023-08-06 15:12] LABS: TSH Reflex To Free T4 1.59 uIU/ml (0.47-4.68)
== END ==
LOC: REG 08:27
PROVIDERS: ATTENDING PHYSICIAN Student in an Organized Health Care Education/Training Program
DX: E07.81 Sick-euthyroid syndrome (principal); E11.9 Type 2 diabetes mellitus without complications
CPT/HCPCS: 36415; 83036; 84443

== ENCOUNTER → 2023-08-31 07:11 | Outpatient (REF) | payer OTHER, SELFPAY ==
[2023-08-31 09:14] LABS: Microalbumin, Random Urine <0.6 mg/dl (0.6-1.7)
[2023-08-31 09:26] LABS: Blood Urea Nitrogen 24 mg/dl (7-17); Calcium 9.9 mg/dl (8.4-10.2); Carbon Dioxide 24 mmol/L (22-30); Chloride 104 mmol/L (98-107); Glucose 99 mg/dl (70-99); Sodium 139 mmol/L (135-145); eGFR > 60.00
== END ==
LOC: REG 07:11
PROVIDERS: ATTENDING PHYSICIAN Internal Medicine Cardiovascular Disease; FAMILY PHYSICIAN Student in an Organized Health Care Education/Training Program
DX: E11.9 Type 2 diabetes mellitus without complications (principal); I10 Essential (primary) hypertension
CPT/HCPCS: 36415; 80048; 82043

== ENCOUNTER 2024-04-02 09:10 | Inpatient (IN) | payer OTHER, SELFPAY ==
[2024-04-01] VITALS (8 sets, daily range): BP systolic 119–160; BP diastolic 58–79; BMI 37.9; BMI 36.6
--- NOTE | 2024-04-01 14:21 | ED.CVA ---
History of Present Illness
<Rodri Jefferson, DO - Last Filed: 04/01/24 15:40>
General
Chief Complaint: CVA/TIA Symptoms
Source: patient and family (Sister)
Exam Limitations: none
Time Seen by Provider: 04/01/24 14:02
Nursing documentation reviewed up to this point in time: agreed with
Onset of Stroke Symptoms
Onset of symptoms known: Yes
Date of onset of symptoms: 04/01/24
Time of onset of symptoms: 12:00
History of Present Illness
History of Present Illness:
69-year-old female presents emergency department. She lives with her sister her, he said that for about 5 minutes she was not making any sense. She was having difficulty with her vision as well. This is all resolved.
Past History
<Rodri Jefferson, DO - Last Filed: 04/01/24 15:40>
Past History
ED Past Medical History: CAD and HTN
ED Past Surgical History: Cardiac (CABG March 2023) and Orthopedic (Lumbar surgery many years ago)
Social History
Tobacco: Non-smoker
Drug: None
Living: with family
Employment: Retired
Family History
Family History: Other (Sister with breast cancer)
Review of Systems
<Rodri Jefferson, DO Es Last Filed: 04/01/24 15:40>
Review of Systems
Allergies reviewed?: Yes
All Other Systems: Not applicable
Constitutional: Reports no symptoms
EENT: Reports no symptoms
Respiratory: Reports no symptoms
Cardiac: Reports no symptoms
ABD/GI: Reports no symptoms
: Reports no symptoms
Musculoskeletal: Reports no symptoms
Skin: Reports no symptoms
Neurological: Reports other (difficulty speaking)
Endocrine: Reports no symptoms
Hematologic/Lymphatic: Reports no symptoms
Psychiatric: Reports no symptoms
Phy Exam
<Rodri Jefferson DO - Last Filed: 04/01/24 15:40>
Physical Exam
Physical Exam:
Physical Exam
General: no apparent distress, not acutely ill
Neck: supple. no meningeal signs. normal posterior pharynx
Heart: s1/s2 regular rate and rhythm, no murmur. equal radial
pulses.
HEENT: Pupils equal round reactive to light, EOMI
Lungs: no acute respiratory distress. clear bilaterally
Abdomen: normal bowel sounds. not tender. no CVAT
Neuro: alert and oriented. no focal neurological deficits cranial nerves II through XII intact
Skin: no rash
Psychiatric: well kept. interactive and cooperative
Extremities: no edema. no calf tenderness. negative homans. good distal pulses
Scores
<Rodri Jefferson, - Last Filed: 04/01/24 15:40>
NIH Stroke Score
Level of Consciousness: 0 - Alert
LOC Questions: 0-Answers both correctly
LOC Commands: 0-Performs both correctly
Best Horizontal Gaze: 0-Normal
Visual Colbert: 0=Normal, no visual loss
Facial Palsy: 0=Normal, symmetrical
Motor - Right Arm: 0=No drift 10 seconds
Motor - Left Arm: 0=No drift 10 seconds
Motor - Right Le-No drift 5 seconds
Motor - Left Le-No drift 5 seconds
Limb Ataxia: 0-Absent
Sensation: 0-Normal
Best Language: 0-No aphasia
Dysarthria: 0-Normal
Extinction and Inattention: 0-No abnormality
Total Score:: 0
<Edouard Anderson MD - Last Filed: 04/01/24 18:07>
NIH Stroke Score
Total Score:: 0
Course
<Rodri Jefferson DO - Last Filed: 04/01/24 15:40>
Orders/Labs/Results
Orders:
Orders
04/01/24 13:55
Electrocardiogram (*1) Urgent
Reason for Study: TIA/Stroke
EKG- Treatment ONCE
04/01/24 13:57
Cardiovascular Evaluation Urgent
Comment: ADD ON
Complete Blood Count/With Diff Urgent
Comprehensive Metabolic Panel Urgent
04/01/24 14:19
CT Head & Neck Angio W/wo IV Urgent
Comment:
Reason For Exam: expressive aphasia
04/01/24 14:25
Add On- LAB Urgent
Tests Added?: lipid profile cardiovascular evaluation
Abnormal Lab Results
04/01/24
13:57
BUN 31 H mg/dl
(7-17)
Triglycerides 214 H mg/dl
(10-149)
VLDL Cholesterol, Calc 42 H mg/dl
(0-30)
04/01/24 13:57
04/01/24 13:57
Vital Signs
Initial and Last Documented VS:
Initial Vital Signs
BP
154/79
04/01/24 13:56
Last Documented Vital Signs
Temp Pulse Resp BP Pulse Ox
98.2 F 98 23 121/68 100
04/01/24 13:58 04/01/24 16:16 04/01/24 16:16 04/01/24 15:00 04/01/24 15:30
<Edouard Anderson MD - Last Filed: 04/01/24 18:07>
Orders/Labs/Results
Orders:
Orders
04/01/24 13:55
Electrocardiogram (*1) Urgent
Reason for Study: TIA/Stroke
EKG- Treatment ONCE
04/01/24 13:57
Cardiovascular Evaluation Urgent
Comment: ADD ON
Complete Blood Count/With Diff Urgent
Comprehensive Metabolic Panel Urgent
04/01/24 14:19
CT Head & Neck Angio W/wo IV Urgent
Comment:
Reason For Exam: expressive aphasia
04/01/24 14:25
Add On- LAB Urgent
Tests Added?: lipid profile cardiovascular evaluation
Abnormal Lab Results
04/01/24
13:57
BUN 31 H mg/dl
(7-17)
Triglycerides 214 H mg/dl
(10-149)
VLDL Cholesterol, Calc 42 H mg/dl
(0-30)
04/01/24 13:57
04/01/24 13:57
Vital Signs
Initial and Last Documented VS:
Initial Vital Signs
BP
154/79
04/01/24 13:56
Last Documented Vital Signs
Temp Pulse Resp BP Pulse Ox
98.2 F 98 23 121/68 100
04/01/24 13:58 04/01/24 16:16 04/01/24 16:16 04/01/24 15:00 04/01/24 15:30
<Rodri Jefferson, DO - Last Filed: 04/01/24 15:40>
MDM/Problems Addressed
Differential Diagnosis Includes:
CVA, intracranial hemorrhage, TIA
MDM/Problems Addressed:
69-year-old female with TIA. Discussed with Dr. Garg, who recommends CTA. If negative, patient may be discharged. Follow-up with primary care.
Chronic conditions affecting care: DM, CAD and Cardiomyopathy
<Rodri Jefferson, DO - Last Filed: 04/01/24 15:40>
*Pulse Oximetry
Patient hypoxic: no
*EKG
Interpreted by ED Provider?: Yes
EKG Intrepretation Date: 04/01/24
EKG Intrepretation Time: 14:24
Interpretation: abnormal
Comparison EKG: changes noted
Heart Rate: 72
Rate: normal
Rhythm: sinus
[place]: normal axis
Interval: normal interval
QRS Pattern: normal QRS
Ischemia: non-specific ST changes
*Manager Of Patient Interpretation
Rate: normal
Interpretation: normal
Heart Rate: 70
Rhythm: sinus
*Critical Care Note
Total Time (30-74mins, 75-104mins- exclusive of procedures): Not Applicable
Data Reviewed
Prescriptions/Medications Considered But Not Given:
TNK not indicated
<Rodri Jefferson DO - Last Filed: 04/01/24 15:40>
Patient Management
Social determinants of health affecting care: Living situation and Strong social support
Discussion with other providers: Direct Support [facility] (neurology)
<Edouard Anderson MD - Last Filed: 04/01/24 18:07>
Update Note
Update Note:
CTA head and neck report reviewed and discussed with on-call vascular surgeon, Dr. Sousa. Patient will be admitted to hospitalist service for further evaluation and treatment.
ED Attending Note
<Rodri Jefferson DO - Last Filed: 04/01/24 15:40>
-
Portions of this chart may have been created with voice recognition software.� Occasional wrong word or��sound alike� substitutions may have occurred due to the inherent limitations of voice recognition software.
Discharge Plan
Departure
Patient Disposition: Admit
Date of Disposition: 04/01/24
Time of Disposition: 18:07
Admit to: Telemetry
Presentation/result/management discussed w/ accepting MD/DO: Hospitalist
Patient with high blood pressure during this ER visit?: Yes
Condition: Good
Discharge Problem:
TIA (transient ischemic attack), Carotid artery stenosis
Prescriptions:
No Action
ascorbic acid (vitamin C) [Vitamin C] 500 mg Tablet
1,000 mg PO DAILY Qty: 30 1RF
lidocaine 4 % Adhesive Patch,Medicated
1 patch topical DAILY 30 Days Qty: 30 0RF
baclofen 10 mg Tablet
10 mg PO HS 30 Days Qty: 30 0RF
aspirin [Children's Aspirin] 81 mg Tablet,Chewable
81 mg PO DAILY 30 Days Qty: 30 0RF
cephalexin 500 mg tablet
500 mg PO Q8H 7 Days Qty: 21 0RF
atorvastatin 80 mg Tablet
80 mg PO HS 30 Days Qty: 30 1RF
clopidogrel 75 mg Tablet
75 mg PO DAILY 30 Days Qty: 30 0RF
pantoprazole 40 mg Tablet,Delayed Release (Dr/Ec)
40 mg PO DAILY 30 Days Qty: 30 1RF
metoprolol succinate 25 mg Tablet Extended Release 24 Hr
12.5 mg PO DAILY 30 Days Qty: 30 1RF
glipizide 5 mg Tablet
5 mg PO BID@0800,1700 30 Days Qty: 60 0RF
Jardiance 10 mg Tablet
10 mg PO DAILY 30 Days Qty: 30 0RF
Rx Instructions:
E11.65
Referrals:
Quoc Cabrales MD, Resident [Family Provider] - Call in 1-3 days for appt
Interventions
Interventions:
*Risk Screen - Suicide Last Done: 04/01/24 13:58
*General Assessment Last Done: 04/01/24 13:58
*Neglect/Abuse Screening Last Done: 04/01/24 13:58
ED- Fall Risk Assessment Last Done: 04/01/24 13:58
*ED COVID-19 Vaccine History Last Done: 04/01/24 13:58
ED- Pulmonary Assessment Last Done: 04/01/24 13:58
ED- Neurological Assessment Last Done: 04/01/24 13:58
ED- Cardiac Assessment Last Done: 04/01/24 13:58
ED Swallowing Screen Last Done: 04/01/24 13:58
Discharge Date and Time
Print Language: TURKISH
[2024-04-01 14:29] LABS: % Basophils 0.3 % (0-2); % Eosinophils 1.4 % (0-6); % Immature Granulocytes 0.2 % (0-0.5); % Lymphocytes 24.4 % (20.5-51.1); % Monocytes 6.5 % (1.7-9.3); % Neutrophils 67.2 % (42.2-75.2); Absolute Eosinophils 0.1 10^3/uL (0-0.7); Absolute Lymphocytes 2.3 10^3/uL (1.2-3.4); Absolute Monocytes 0.6 10^3/uL (0.1-0.6); Absolute Neutrophils 6.4 10^3/uL (1.4-6.5); Hematocrit 43.5 % (37.0-47.0); Hemoglobin 14.5 g/dL (12.0-16.0); Mean Corp Hgb Conc. 33.3 g/dL (33.0-37.0); Mean Corpuscular Hgb 29.1 pg (27.0-31.0); Mean Corpuscular Volume 87.3 fL (81.0-99.0); Mean Platelet Volume 8.9 fL (7.4-10.4); Nucleated Red Blood Cells % 0 %; Platelet Count 324 10^3/uL (130-400); Red Blood Cell Count 4.98 10^6/uL (4.20-5.40); White Blood Cell Count 9.4 10^3/uL (4.8-10.8)
[2024-04-01 14:50] LABS: ALT (SGPT) 32 U/L (0-35); AST (SGOT) 27 U/L (14-36); Albumin 4.5 g/dl (3.5-5.0); Alkaline Phosphatase 74 U/L (38-126); Blood Urea Nitrogen 31 mg/dl (7-17); Calcium 9.7 mg/dl (8.4-10.2); Carbon Dioxide 27 mmol/L (22-30); Chloride 101 mmol/L (98-107); Estimated Creatinine Clearance 74 ml/min; Glucose 95 mg/dl (70-99); HDL Cholesterol 49 mg/dl; LDL Cholesterol, Calculated 73 mg/dl; Potassium 4.8 mmol/L (3.5-5.1); Sodium 137 mmol/L (135-145); Total Bilirubin 0.5 mg/dl (0.2-1.3); Total Cholesterol 164 mg/dl (50-199); Total Protein 7.3 g/dl (6.3-8.2); Triglyceride 214 mg/dl (10-149); Very Low Density Lipoprotein 42 mg/dl (0-30); eGFR > 60.00
--- NOTE | 2024-04-01 18:50 | HPS.HSE ---
Addendum entered and electronically signed by Araceli Adan MD 04/01/24 18:55:
Check MRI brain.
Original Note:
Family Physician
-
Family Physician: Quoc Henriquez MD, Resid
Chief Complaint
-
difficulty speaking
History of Present Illness
69-year-old female past medical history of CAD status post CABG x 6, hypertension, chronic back pain, hyperlipidemia, diabetes, presenting with difficulty articulating words around 12 PM today. This was associated with some frontal headache and a
circular ring in her vision of her right eye. This lasted 10 minutes and resolved. She has been having numbness and tingling in her bilateral feet for the past 2 weeks. She thought this was from back surgery she had many years ago. She has also
been having tingling in her left hand since she had CABG x 6 last year. She denies any focal weakness. Denies difficulty swallowing. Denies vertigo. Denies any prior history of strokes. She is already on aspirin and Plavix since her CABG.
She was discovered to have bilateral carotid artery stenosis prior to her surgery last year.
She denies smoking or alcohol use.
Denies any family history of strokes.
Medical History
Past Medical History
Past Medical History: Reports Other (CAD status post CABG x 6, hypertension, chronic back pain, hyperlipidemia, diabetes)
Past Surgical History: Reports Other (Cardiac (CABG March 2023) and Orthopedic (Lumbar surgery many years ago))
Social History
Tobacco: Non-smoker
Alcohol: None
Drug: None
Family History
Family History: Not pertinent
Allergies / Home Medications
Allergies reflects when Allergies were last updated in [facility].
Home Medications with original date entered in [facility]
Allergy/Medication List:
Allergies
Allergy/AdvReac Type Severity Reaction Status Date / Time
No Known Allergies Allergy Verified 04/14/23 18:24
Home Medications
aspirin 81 mg chewable tablet (Children's Aspirin) 81 mg PO DAILY Heart disease/condition 30 days #30 tabs 04/24/23
clopidogrel 75 mg tablet 75 mg PO DAILY Heart disease/condition 30 days #30 tabs 04/24/23
empagliflozin 10 mg tablet (Jardiance) 10 mg PO DAILY 30 days #30 tabs 04/24/23
metoprolol succinate 25 mg tablet,extended release 24 hr 12.5 mg (1/2 x 25 mg) PO DAILY Heart disease/condition 30 days #30 tabs 04/24/23
ascorbic acid (vitamin C) 500 mg tablet (Vitamin C) 500 mg PO DAILY Supplement 04/01/24
atorvastatin 80 mg tablet 40 mg PO HS High cholesterol 04/01/24
coQ10 (ubiquinol) 100 mg capsule 100 mg PO QPM 04/01/24
glipizide 5 mg tablet 5 mg PO QPM 04/01/24
lisinopril 10 mg tablet 5 mg PO DAILY 04/01/24
magnesium oxide 400 mg PO HS 04/01/24
omega 9-xcm-onh-fish oil 1,000 mg (120 mg-180 mg) capsule (Fish Oil) 1 cap PO QPM 04/01/24
Review of Systems
-
History Source: Patient
A 12 point ROS was completed and negative except as noted: Yes
Constitutional: Reports No Symptoms
EENT: Reports No Symptoms
Respiratory: Reports No Symptoms
Cardiac: Reports No Symptoms
Abdomen/GI: Reports No Symptoms
: Reports No Symptoms
Musculoskeletal: Reports No Symptoms
Skin: Reports No Symptoms
Neurological: Reports No Symptoms
Endocrine: Reports No Symptoms
Hematologic/Lymphatic: Reports No Symptoms
Psych: Reports No Symptoms
Physical Exam
Vital Signs
Vital Signs
Temp Pulse Resp BP Pulse Ox
98.2 F 98 23 121/68 100
04/01/24 13:58 04/01/24 16:16 04/01/24 16:16 04/01/24 15:00 04/01/24 15:30
Physical Exam
General: Well Developed, Well Nourished and No Apparent Distress
HEENT: NormoCephalic, Moist mucous membranes and Atraumatic
Respiratory: Clear
Cardiac: S1/S2 and Regular Rhythm; No Murmur or Rub
GI: Soft, Non Tender, Non Distended and Normal Bowel Sounds; No Organomegaly
Rectal: Deferred by Provider
Musculoskeletal: No Clubbing, No Cyanosis and No Edema
Skin: No Rash
Neuro: Nonfocal/grossly intact
Laboratory Results
-
04/01/24 13:57
04/01/24 13:57
Laboratory Results
Total Bilirubin 0.5 mg/dl (0.2-1.3) 04/01/24 13:57
AST 27 U/L (14-36) 04/01/24 13:57
ALT 32 U/L (0-35) 04/01/24 13:57
Alkaline Phosphatase 74 U/L (38-126) 04/01/24 13:57
Data Reviewed
-
Lab Data: Labs Reviewed by me
Old Records: Reviewed
Impression/Plan
-
IMPRESSION:
PLAN:
# TIA
# Bilateral internal carotid artery stenosis
-CTA shows no acute intracranial abnormality, 75% stenosis of the right carotid bulb, greater than 90% stenosis the left carotid bulb, mild stenosis the M1 segment of the right MCA, moderate stenosis of the cavernous segments of the bilateral
internal carotid arteries, stenosis of the V4 segments of the bilateral vertebral arteries,
-Aspirin and Plavix given
-Neurology consulted
-Vascular consulted
CAD status post CABG x 6
-Continue aspirin, Plavix, statin
-Continue metoprolol
Essential hypertension
-Continue lisinopril
Chronic back pain
Hyperlipidemia
Type 2 diabetes
-Hold glipizide
-Insulin sliding scale
-Continue Jardiance
Obesity
Full code
DVT prophylaxis�SCDs
Regular diet
[2024-04-01] MEDS: LIPITOR 40 MG PO (22:57)
[2024-04-01] MEDS: MAG-TAB SR 84 MG PO (22:57)
[2024-04-01] MEDS: TYLENOL 1000 MG PO (23:21)
[2024-04-02 03:50] VITALS: BP 137/77
--- NOTE | 2024-04-02 07:08 | CON.VAS ---
Consultation
Consultation Request
Date/Time Consultation Requested: 04/01/24
Date/Time Consultation Performed: 04/02/24
Requesting Provider: -
Performing Provider: Lars
Reason for Consultation: Carotid stenosis
Medical History
-
Chief Complaint: Word finding difficulties 04/01/24
History of Present Illness:
Patient seen and examined with sister at bedside
Patient comfortable, alert and without complaints
Sitting up in bed
Reports acute abrupt onset of word finding difficulties when speaking with her sister yesterday, 04/01/2024
No prior episodes of this
Spontaneously resolved
Also reports halos and some right-sided visual disturbance which was not monocular blindness at the time of the speech disturbance
This also resolved
Has a history of carotid stenosis discovered during preop workup for CABG
She did not follow-up with this as she was sidetracked due to her sister becoming sick and dying over the summer.
[id number]
Specifically denies facial droop, monocular vision loss, asymmetric upper/lower extremity weakness. Denies prior stroke or TIA.
Significant coronary artery disease history requiring bypass surgery in 2023
Doing well from that perspective
Past medical history significant for diabetes, hypertension and hypercholesterolemia
Past Medical History
Past Medical History: CAD, HTN, Hypercholesterolemia and NIDDM
Past Surgical History: Cardiac (cabg)
Social History
Tobacco: Non-Smoker
Alcohol: None
Allergies / Home Medications
Allergy/AdvReac Type Severity Reaction Status Date / Time
No Known Allergies Allergy Verified 04/14/23 18:24
�Medication �Instructions �Recorded �Confirmed �Type
aspirin 81 mg chewable tablet 81 mg PO DAILY Heart 04/24/23 04/01/24 Rx
(Children's Aspirin) disease/condition 30 days #30 tabs
clopidogrel 75 mg tablet 75 mg PO DAILY Heart 04/24/23 04/01/24 Rx
disease/condition 30 days #30 tabs
empagliflozin 10 mg tablet 10 mg PO DAILY 30 days #30 tabs 04/24/23 04/01/24 Rx
(Jardiance)
metoprolol succinate 25 mg 12.5 mg (1/2 x 25 mg) PO DAILY 04/24/23 04/01/24 Rx
tablet,extended release 24 hr Heart disease/condition 30 days
#30 tabs
ascorbic acid (vitamin C) 500 mg 500 mg PO DAILY Supplement 04/01/24 04/01/24 History
tablet (Vitamin C)
atorvastatin 80 mg tablet 40 mg PO HS High cholesterol 04/01/24 04/01/24 History
coQ10 (ubiquinol) 100 mg capsule 100 mg PO QPM 04/01/24 04/01/24 History
glipizide 5 mg tablet 5 mg PO QPM 04/01/24 04/01/24 History
lisinopril 10 mg tablet 5 mg PO DAILY 04/01/24 04/01/24 History
magnesium oxide 400 mg PO HS 04/01/24 04/01/24 History
omega 6-xrd-opy-fish oil 1,000 mg 1 cap PO QPM 04/01/24 04/01/24 History
(120 mg-180 mg) capsule (Fish Oil)
Review of Systems
-
History Source: Patient
All other systems: Negative unless noted
Physical Exam
Vital Signs
Temp Pulse Resp BP Pulse Ox
98.4 F 92 18 137/77 96
04/02/24 03:50 04/02/24 03:50 04/02/24 03:50 04/02/24 03:50 04/02/24 03:50
Physical Exam
General: Well Developed, Well Nourished and No Apparent Distress
HEENT: Normocephalic
Respiratory: Non Labored Respirations
Skin: Warm and Dry
Neuro: Awake, AO x 3, No Motor Deficits and Nonfocal/Grossly Intact
Psych: Calm
Assessment / Plan
-
Bilateral carotid stenosis. Left is significant. Soft plaque. Suspect TIA/symptomatic stenosis based on clinical presentation and imaging
-Update carotid duplex (ordered)
-Continue antiplatelet therapy
-Statin/aggressive lipid management
-LEFT CEA on this admission.
Tentatively planned for Thursday04/04/2024 in the afternoon.
The technical aspects of this procedure were discussed with her and her sister in detail. The benefits and rationale for carotid intervention were discussed with them in detail. Operative risks were discussed with them in detail including but not
limited to stroke, heart attack, , bleeding, infection, wound healing complications and cranial nerve injury. We discussed the anticipated recovery, both inpatient and outpatient. We discussed the importance of continued aggressive medical
therapy for her arterial disease risk factors. We discussed the importance of lifelong imaging surveillance postoperatively.
She expressed a clear understanding of our conversation and agrees to proceed with surgery as detailed above.
Call with questions or concerns
Diego Sousa III, MD
[facility] Vascular Surgery
[phone] ([email or web address])
Data Reviewed
-
CT Scan: Image Personally Visualized and interpreted, Report Reviewed by me and Discussed with Patient
Labs: Labs Reviewed by me
[2024-04-02 07:22] LABS: Glucose - Point of Care 140 mg/dl (70-99)
[2024-04-02] MEDS: PLAVIX 75 MG PO (07:24)
[2024-04-02] MEDS: VITAMIN C 500 MG PO (07:24)
[2024-04-02] MEDS: ZESTRIL 5 MG PO (07:24)
[2024-04-02] MEDS: LOW STRENGTH ASPIRIN 81 MG PO (07:24)
[2024-04-02] MEDS: FARXIGA 10 MG PO (07:24)
[2024-04-02] MEDS: TOPROL XL 12.5 MG PO (07:24)
[2024-04-02] MEDS: NOVOLOG FLEXPEN-LOW RESISTANCE SC ×2 (07:31→12:44)
[2024-04-02 07:35] VITALS: BP 127/69
[2024-04-02] MEDS: TYLENOL 650 MG PO ×2 (07:41→21:27)
[2024-04-02 07:55] LABS: % Basophils 0.5 % (0-2); % Immature Granulocytes 0.3 % (0-0.5); % Lymphocytes 34.7 % (20.5-51.1); % Monocytes 7.3 % (1.7-9.3); % Neutrophils 55.2 % (42.2-75.2); Absolute Eosinophils 0.2 10^3/uL (0-0.7); Absolute Lymphocytes 2.7 10^3/uL (1.2-3.4); Absolute Monocytes 0.6 10^3/uL (0.1-0.6); Absolute Neutrophils 4.3 10^3/uL (1.4-6.5); Hematocrit 45.4 % (37.0-47.0); Hemoglobin 15.1 g/dL (12.0-16.0); Mean Corp Hgb Conc. 33.3 g/dL (33.0-37.0); Mean Corpuscular Hgb 29.7 pg (27.0-31.0); Mean Corpuscular Volume 89.2 fL (81.0-99.0); Mean Platelet Volume 9.1 fL (7.4-10.4); Nucleated Red Blood Cells % 0 %; Platelet Count 323 10^3/uL (130-400); Red Blood Cell Count 5.09 10^6/uL (4.20-5.40); Red Cell Dist. Width 13.2 % (11.5-14.5); White Blood Cell Count 7.7 10^3/uL (4.8-10.8)
[2024-04-02 08:09] LABS: ALT (SGPT) 32 U/L (0-35); AST (SGOT) 26 U/L (14-36); Albumin 4.6 g/dl (3.5-5.0); Alkaline Phosphatase 72 U/L (38-126); Blood Urea Nitrogen 25 mg/dl (7-17); Calcium 9.8 mg/dl (8.4-10.2); Carbon Dioxide 27 mmol/L (22-30); Chloride 102 mmol/L (98-107); Estimated Creatinine Clearance 82 ml/min; Glucose 140 mg/dl (70-99); Sodium 137 mmol/L (135-145); Total Bilirubin 0.7 mg/dl (0.2-1.3); Total Protein 7.4 g/dl (6.3-8.2); eGFR > 60.00
--- NOTE | 2024-04-02 08:40 | CON.NEURO ---
Neuro Assessment/Plan
Assessment
Acute onset speech change in a patient using both aspirin and clopidogrel found to have carotid artery stenosis bilaterally which was greater than 70% on the left
Plan
Continue aspirin and clopidogrel
Consult vascular surgery for surgical remediation
Will follow as needed
Consultation
Order
Date of Consultation: 04/02/24
Requesting Provider:
Reason for Consult:
Subjective/Objective
Subjective Data
Date of Service: April 02, 2024
Objective Data
Vital Signs
Temp Pulse Resp BP Pulse Ox
36.9 C 92 18 137/77 96
04/02/24 03:50 04/02/24 03:50 04/02/24 03:50 04/02/24 03:50 04/02/24 03:50
Lab Results
04/02/24 07:15
04/02/24 07:15
Sodium 137 mmol/L (135-145) 04/02/24 07:15
Potassium 5.0 mmol/L (3.5-5.1) 04/02/24 07:15
BUN 25 mg/dl (7-17) H 04/02/24 07:15
Glucose 140 mg/dl (70-99) H 04/02/24 07:15
Calcium 9.8 mg/dl (8.4-10.2) 04/02/24 07:15
LDL Cholesterol, Calc Cancelled 04/01/24 14:21
Patient Allergies
No Known Allergies Allergy (Verified 04/14/23 18:24)
Data Reviewed
-
CT-A: Report Reviewed
Labs: Report Reviewed
Reviewed with: Physician
Old Records: Summarized
Medications
-
Active Medications
Generic Name Dose Route Start Last Admin
Trade Name Freq PRN Reason Stop Dose Admin
Acetaminophen 650 mg 04/02/24 05:00 04/02/24 07:41
Acetaminophen 325 Mg Tablet PO 04/30/24 04:59 650 mg
Q4HPRN PRN Administration
mild pain/VARGAS/temp>100.5
Ascorbic Acid 500 mg 04/02/24 08:00 04/02/24 07:24
Ascorbic Acid 500 Mg Tablet PO 04/30/24 07:59 500 mg
DAILY ALLYN Administration
Aspirin 81 mg 04/02/24 08:00 04/02/24 07:24
Aspirin 81 Mg Chewable Tablet PO 04/30/24 07:59 81 mg
DAILY ALLYN Administration
Atorvastatin Calcium 40 mg 04/01/24 22:18 04/01/24 22:57
Atorvastatin (Lipitor) 80 Mg Tablet PO 04/29/24 22:17 40 mg
HS ALYLN Administration
Clopidogrel Bisulfate 75 mg 04/02/24 08:00 04/02/24 07:24
Clopidogrel 75 Mg Tablet PO 04/30/24 07:59 75 mg
DAILY ALLYN Administration
Dapagliflozin 10 mg 04/02/24 08:00 04/02/24 07:24
Dapagliflozin (Farxiga) 10 Mg Tablet PO 04/30/24 07:59 10 mg
DAILY ALLYN Administration
Dextrose 12.5 grams 04/01/24 22:18
Dextrose 50% (0.5 Grams/Ml) 50 Ml Syringe IV 04/29/24 22:17
[id number] PRN
hypoglycemia
Protocol
Glucagon 1 mg 04/01/24 22:18
Glucagon 1 Mg Vial IM 04/29/24 22:17
PRN PRN
hypoglycemia
Protocol
Insulin Aspart 0 units 04/02/24 07:30 04/02/24 07:31
Insulin Aspart Low Resistance 300 Units/3 Ml Pen.Injctr SC 04/30/24 07:29 Not Given
AC ALLNY
Protocol
Lisinopril 5 mg 04/02/24 08:00 04/02/24 07:24
Lisinopril 5 Mg Tablet PO 04/30/24 07:59 5 mg
DAILY ALLYN Administration
Magnesium 84 mg 04/01/24 23:00 04/01/24 22:57
Magnesium Lactate 84 Mg Tablet PO 04/29/24 22:59 84 mg
HS ALLYN Administration
Metoprolol Succinate 12.5 mg 04/02/24 08:00 04/02/24 07:24
Metoprolol 12.5 Mg Extended Release Dose (1/2 Of 25 Mg Xl Tablet) PO 04/30/24 07:59 12.5 mg
DAILY ALLYN Administration
Sodium Chloride 0 flush 04/01/24 23:00
Sodium Chloride 0.9% (Flush) Syringe IV 04/29/24 22:59
PER PROTOCOL ALLYN
Home Medications
�Medication �Instructions �Recorded
aspirin 81 mg chewable tablet 81 mg PO DAILY Heart 04/24/23
(Children's Aspirin) disease/condition 30 days #30 tabs
clopidogrel 75 mg tablet 75 mg PO DAILY Heart 04/24/23
disease/condition 30 days #30 tabs
empagliflozin 10 mg tablet 10 mg PO DAILY 30 days #30 tabs 04/24/23
(Jardiance)
metoprolol succinate 25 mg 12.5 mg (1/2 x 25 mg) PO DAILY 04/24/23
tablet,extended release 24 hr Heart disease/condition 30 days
#30 tabs
ascorbic acid (vitamin C) 500 mg 500 mg PO DAILY Supplement 04/01/24
tablet (Vitamin C)
atorvastatin 80 mg tablet 40 mg PO HS High cholesterol 04/01/24
coQ10 (ubiquinol) 100 mg capsule 100 mg PO QPM 04/01/24
glipizide 5 mg tablet 5 mg PO QPM 04/01/24
lisinopril 10 mg tablet 5 mg PO DAILY 04/01/24
magnesium oxide 400 mg PO HS 04/01/24
omega 1-iqv-aai-fish oil 1,000 mg 1 cap PO QPM 04/01/24
(120 mg-180 mg) capsule (Fish Oil)
Past History
Past History
ED Past Medical History: CAD, HTN, Hypercholesterolemia, NIDDM and Other (carotid stenosis)
ED Past Surgical History: Cardiac (CABG March 2023) and Orthopedic (Lumbar surgery many years ago)
Social History
Tobacco: Non-smoker
Drug: None
Living: with family
Employment: Retired
Family History
Family History: Other (Sister with breast cancer)
[2024-04-02] MEDS: MIRALAX 17 GRAMS PO (10:01)
--- NOTE | 2024-04-02 10:23 | W.PN.HOSP.TC ---
Today's Communication/Plan
-
Continue current care
Assessment / Plan
Assessment / Plan
Gen-AAOx3, NAD
HEENT-NC, AT, anicteric, clear oral mm
Neck-supple
CV-reg, no M, +S1/S2
Lungs-clear B/L
Abd-soft, NT, ND
Ext-no edema
Musculoskeletal-no cyanosis, clubbing
Skin-warm and dry, right lateral heel wound without drainage
Neuro-grossly non-focal
Psych-calm, cooperative
TIA -symptomatic carotid stenosis. Neurologic symptoms resolved. Brain MRI completed, report pending.
Continue dual antiplatelet therapy. Atorvastatin.
Bilateral carotid stenosis - worse on the left. 75% right carotid bulb stenosis, greater than 90% left carotid bulb. Noted on CTA. Await left carotid endarterectomy on Thursday. Vascular surgery following.
Right lateral heel wound -vascular surgery aware, will workup after carotid revascularization.
CAD/CABG - March 2023. 6 vessel.
DM2 with hyperglycemia -glucose 140 this morning. Hemoglobin A1c pending. Hold glipizide. Continue Jardiance. Sliding scale insulin.
Essential hypertension -stable.
hyperlipidemia -atorvastatin.
Chronic back pain
obesity due to excess calories -reportedly lost 40 pounds since CABG surgery last year.
Full code
Anticipated Discharge: > 48 hours
Subjective/Interval History
-
Date of Service: April 02, 2024
Patient seen and examined. No neurologic complaints.
Objective Data
-
Labs:
Laboratory Results
04/02/24
07:15
WBC 7.7
Hgb 15.1
Hct 45.4
Plt Count 323
Sodium 137
Potassium 5.0
Chloride 102
Carbon Dioxide 27
BUN 25 H
Creatinine 0.8
Glucose 140 H
Calcium 9.8
Total Bilirubin 0.7
AST 26
ALT 32
Alkaline Phosphatase 72
Vital Signs:
Vital Signs
Temp Pulse Resp BP Pulse Ox
98.3 F 99 16 127/69 95
04/02/24 07:35 04/02/24 07:35 04/02/24 07:35 04/02/24 07:35 04/02/24 07:35
I&O
04/01/24 04/02/24 04/03/24
06:59 06:59 06:59
Intake Total 540 / 540
Balance 540 / 540
Review of Systems
-
History Source: Patient
All other systems: Reviewed and negative
[2024-04-02 10:26] LABS: Glycohemoglobin (HgbA1c) 6.9 % (4.0-5.6)
[2024-04-02 11:15] VITALS: BP 136/87
[2024-04-02 12:43] LABS: Glucose - Point of Care 129 mg/dl (70-99)
[2024-04-02 15:35] VITALS: BP 111/64
[2024-04-02 16:46] LABS: Glucose - Point of Care 157 mg/dl (70-99)
[2024-04-02] MEDS: NOVOLOG FLEXPEN-LOW RESISTANCE 1 UNITS SC (17:06)
[2024-04-02 19:40] VITALS: BP 111/77
[2024-04-02 21:24] LABS: Glucose - Point of Care 175 mg/dl (70-99)
[2024-04-02] MEDS: MAG-TAB SR 84 MG PO (21:27)
[2024-04-02] MEDS: LIPITOR 40 MG PO (21:27)
[2024-04-02 23:50] VITALS: BP 136/76
[2024-04-03 03:36] VITALS: BP 141/80
[2024-04-03 07:13] LABS: Glucose - Point of Care 122 mg/dl (70-99)
[2024-04-03 07:35] VITALS: BP 149/74
[2024-04-03] MEDS: NOVOLOG FLEXPEN-LOW RESISTANCE SC ×3 (07:49→18:15)
[2024-04-03] MEDS: TOPROL XL 12.5 MG PO (07:54)
[2024-04-03] MEDS: MIRALAX 17 GRAMS PO (07:54)
[2024-04-03] MEDS: LOW STRENGTH ASPIRIN 81 MG PO (07:54)
[2024-04-03] MEDS: FARXIGA 10 MG PO (07:54)
[2024-04-03] MEDS: ZESTRIL 5 MG PO (07:54)
[2024-04-03] MEDS: VITAMIN C 500 MG PO (07:54)
[2024-04-03] MEDS: PLAVIX 75 MG PO (07:54)
--- NOTE | 2024-04-03 08:26 | W.PN.UPDATE ---
Update Note
Progress Note Update
No clinical changes overnight
Sitting up in bed
Comfortable
Sister at bedside
MRI report reviewed
Grossly nonfocal neuro exam
We had another surgical discussion at bedside this morning. She had printed literature regarding carotid endarterectomy and I answered additional questions she had about the procedure. She again expressed a clear understanding of the recommended
carotid intervention, technical aspects, benefits and rationale and operative risks.
Planning for left carotid endarterectomy Thursday, April 04, 2024
Continue antiplatelet therapy
Diego Sousa III, MD
[facility] Vascular Surgery
[phone] ([email or web address])
--- NOTE | 2024-04-03 09:09 | W.PN.HOSP.TC ---
Today's Communication/Plan
-
N.p.o. after midnight
Assessment / Plan
Assessment / Plan
Gen-AAOx3, NAD
HEENT-NC, AT, anicteric, clear oral mm
Neck-supple
CV-reg, no M, +S1/S2
Lungs-clear B/L
Abd-soft, NT, ND
Ext-no edema
Musculoskeletal-no cyanosis, clubbing
Skin-warm and dry, right lateral heel wound without drainage
Neuro-grossly non-focal
Psych-calm, cooperative
Subacute stroke -brain MRI confirms small subacute infarct in the left periventricular white matter, measuring 5 mm. No focal deficits on exam.
Continue dual antiplatelet therapy.
Bilateral carotid stenosis - worse on the left. 75% right carotid bulb stenosis, greater than 90% left carotid bulb. Noted on CTA. Await left carotid endarterectomy on Thursday. Vascular surgery following. N.p.o. after midnight.
Right lateral heel wound -vascular surgery aware, will workup after carotid revascularization.
CAD/CABG - March 2023. 6 vessel.
DM2 with hyperglycemia -glucose 122 this morning. Daytime glucoses controlled. Hemoglobin A1c 6.9%. Hold glipizide. Continue Jardiance. Sliding scale insulin.
Essential hypertension -stable. Continue lisinopril, metoprolol.
hyperlipidemia -atorvastatin.
Chronic back pain
obesity due to excess calories -reportedly lost 40 pounds since CABG surgery last year.
Full code
Updated sister at the bedside.
Anticipated Discharge: > 48 hours
Subjective/Interval History
-
Date of Service: April 03, 2024
Patient seen and examined. No new complaints.
Objective Data
-
Vital Signs:
Vital Signs
Temp Pulse Resp BP Pulse Ox
98.3 F 90 16 149/74 98
04/03/24 07:35 04/03/24 07:35 04/03/24 07:35 04/03/24 07:35 04/03/24 07:35
I&O
04/02/24 04/03/24 04/04/24
06:59 06:59 06:59
Intake Total 540 / 540 120 / 120
Balance 540 / 540 120 / 120
Review of Systems
-
History Source: Patient
All other systems: Reviewed and negative
[2024-04-03 11:20] VITALS: BP 120/75
[2024-04-03 12:23] LABS: Glucose - Point of Care 126 mg/dl (70-99)
[2024-04-03 15:30] VITALS: BP 143/79
[2024-04-03 17:14] LABS: Glucose - Point of Care 107 mg/dl (70-99)
[2024-04-03 20:01] VITALS: BP 131/88
[2024-04-03] MEDS: LIPITOR 40 MG PO (20:14)
[2024-04-03] MEDS: MAG-TAB SR 84 MG PO (20:14)
[2024-04-03 21:28] LABS: Glucose - Point of Care 131 mg/dl (70-99)
[2024-04-03 23:31] VITALS: BP 127/83
[2024-04-04] VITALS (9 sets, daily range): BP systolic 89–125; BP diastolic 47–72
[2024-04-04 08:03] LABS: Glucose - Point of Care 128 mg/dl (70-99)
[2024-04-04] MEDS: NOVOLOG FLEXPEN-LOW RESISTANCE SC ×3 (08:04→21:50)
[2024-04-04] MEDS: PERIDEX 0.12% ORAL RINSE 15 ML PO (08:06)
[2024-04-04] MEDS: ZESTRIL 5 MG PO (08:06)
[2024-04-04] MEDS: BACTROBAN 2% OINTMENT 1 APPLIC NASAL (08:06)
[2024-04-04] MEDS: PLAVIX 75 MG PO (08:06)
[2024-04-04] MEDS: LOW STRENGTH ASPIRIN 81 MG PO (08:06)
[2024-04-04] MEDS: FARXIGA 10 MG PO (08:06)
[2024-04-04] MEDS: VITAMIN C 500 MG PO (08:06)
[2024-04-04] MEDS: TOPROL XL 12.5 MG PO (08:06)
[2024-04-04] MEDS: TYLENOL 650 MG PO (08:10)
[2024-04-04] MEDS: MIRALAX PO (08:26)
[2024-04-04 10:22] LABS: % Basophils 0.8 % (0-2); % Eosinophils 3.2 % (0-6); % Immature Granulocytes 0.1 % (0-0.5); % Lymphocytes 34.9 % (20.5-51.1); % Monocytes 6.9 % (1.7-9.3); % Neutrophils 54.1 % (42.2-75.2); Absolute Basophils 0.1 10^3/uL (0-0.2); Absolute Eosinophils 0.3 10^3/uL (0-0.7); Absolute Lymphocytes 2.7 10^3/uL (1.2-3.4); Absolute Monocytes 0.5 10^3/uL (0.1-0.6); Absolute Neutrophils 4.2 10^3/uL (1.4-6.5); Hematocrit 45.6 % (37.0-47.0); Hemoglobin 15.2 g/dL (12.0-16.0); Mean Corp Hgb Conc. 33.3 g/dL (33.0-37.0); Mean Corpuscular Hgb 29.7 pg (27.0-31.0); Mean Corpuscular Volume 89.2 fL (81.0-99.0); Mean Platelet Volume 8.8 fL (7.4-10.4); Nucleated Red Blood Cells % 0 %; Platelet Count 325 10^3/uL (130-400); Red Blood Cell Count 5.11 10^6/uL (4.20-5.40); Red Cell Dist. Width 13.2 % (11.5-14.5); White Blood Cell Count 7.8 10^3/uL (4.8-10.8)
[2024-04-04 10:48] LABS: Blood Urea Nitrogen 27 mg/dl (7-17); Calcium 9.8 mg/dl (8.4-10.2); Carbon Dioxide 29 mmol/L (22-30); Chloride 101 mmol/L (98-107); Estimated Creatinine Clearance 73 ml/min; Glucose 135 mg/dl (70-99); Potassium 5.6 mmol/L (3.5-5.1); Sodium 139 mmol/L (135-145); eGFR > 60.00
--- NOTE | 2024-04-04 11:19 | WOUNDNOTE ---
R LATERAL FOOT AND HEEL
--- NOTE | 2024-04-04 11:22 | WOUNDNOTE ---
WON RN note: Patient admitted with TIA.
See H&P for complete history. Lives with sister.
PMH:(CAD status post CABG x 6, hypertension, chronic back pain, hyperlipidemia, diabetes)
Past Surgical History: Reports Other (Cardiac (CABG March 2023) and Orthopedic (Lumbar surgery many years ago))
Wound Location and type/assessment: Patient admitted with: R lateral foot and heel arterial/venous ulcers. Intact dry scab proximally. Mid foot with small open ulcer. Proximal heel with linear crack that is open, scant drainage, base yellow to both
open ulcers. No odor or purulent drainage. Foot slightly red, trace edema. Patient reports pain in R medial heel area, there is a closed crack there. Non palpable pedal pulses, audible but faint with Doppler on R. L heel is intact. Patient and nurse
Nancy confirmed that Dr. Sousa is aware of the above and plans to do further testing to check circulation in legs, after carotid surgery scheduled for today.
Appetite: NPO for OR, otherwise good.
Pressure redistribution devices in place: Accumax, can turn self in bed.
Plan: Topical Polysporin to open ulcers then local wound care to R foot. TruVue lite offloading heel boot for R leg. Called [employer] for boot and nurse Nancy will apply. Will follow along peripherally and assist as needed.
Will confirm orders with hospitalist and update nurse.
Updated care plan and will follow as needed.
Note to case management of equipment requested for discharge: Sister can do wound care.
Recommend follow up at wound care center upon discharge.
--- NOTE | 2024-04-04 11:50 | W.SUR.PREOP ---
Pre-Operative Surgical Note
-
I have examined this patient prior to the performance of the scheduled procedure.
The patient's condition is unchanged from the time of the current History and
Physical and the patient is able to undergo the scheduled procedure.
[2024-04-04 12:30] LABS: Glucose - Point of Care 93 mg/dl (70-99)
--- NOTE | 2024-04-04 12:50 | W.PN.HOSP.TC ---
Today's Communication/Plan
-
Monitor vital signs see plan
Lokelma
Plan for enterectomy today
Vascular following
Discussed with sister at bedside
hold lisinopril for now
Assessment / Plan
Assessment / Plan
Gen-AAOx3, NAD
HEENT-NC, AT, anicteric, clear oral mm
Neck-supple
CV-reg, no M, +S1/S2
Lungs-clear B/L
Abd-soft, NT, ND
Ext-no edema
Musculoskeletal-no cyanosis, clubbing
Skin-warm and dry, right lateral heel wound without drainage
Neuro-grossly non-focal
Psych-calm, cooperative
Subacute stroke -brain MRI confirms small subacute infarct in the left periventricular white matter, measuring 5 mm. No focal deficits on exam.
Continue dual antiplatelet therapy.
Bilateral carotid stenosis - worse on the left. 75% right carotid bulb stenosis, greater than 90% left carotid bulb. Noted on CTA. Await left carotid endarterectomy on Tuesday 04/04. Vascular surgery following. N.p.o.
carotid doppler
Right lateral heel wound -vascular surgery aware, will workup after carotid revascularization.
Hyperkalemia
Lokelma
Hold lisinopril for now
CAD/CABG - March 2023. 6 vessel.
DM2 with hyperglycemia - Daytime glucoses controlled. Hemoglobin A1c 6.9%. Hold glipizide. Continue Jardiance. Sliding scale insulin.
Essential hypertension -stable. Continue metoprolol, hold lisinopril
hyperlipidemia -atorvastatin.
Chronic back pain
obesity due to excess calories -reportedly lost 40 pounds since CABG surgery last year.
Full code
Updated sister at the bedside.
Anticipated Discharge: 24 - 48 hours
Subjective/Interval History
-
Date of Service: April 04, 2024
Denies pain
Objective Data
-
Labs:
Laboratory Results
04/04/24
10:13
WBC 7.8
Hgb 15.2
Hct 45.6
Plt Count 325
Sodium 139
Potassium 5.6 H
Chloride 101
Carbon Dioxide 29
BUN 27 H
Creatinine 0.9
Glucose 135 H
Calcium 9.8
Vital Signs:
Vital Signs
Temp Pulse Resp BP Pulse Ox
97.9 F 80 20 120/70 100
04/04/24 11:06 04/04/24 11:06 04/04/24 11:06 04/04/24 11:06 04/04/24 11:06
I&O
04/03/24 04/04/24 04/05/24
06:59 06:59 06:59
Intake Total 120 / 120 570 / 570
Balance 120 / 120 570 / 570
[2024-04-04] MEDS: LOKELMA 10 GRAM PO (13:01)
--- NOTE | 2024-04-04 16:15 | PTCARENOTE ---
received pt from 410-2. pt awake , alert and oriented x 3. lungs cta. vs- b/, 95% sat on ra, 20 rr, nsr at 77bpm. neuro check wnl. notified dr Greenberg anesthesia to see pt pre procedure .
[2024-04-04 17:25] LABS: Glucose - Point of Care 92 mg/dl (70-99)
[2024-04-04 18:47] LABS: ACT-LR - POC 321 Seconds (116-155)
--- NOTE | 2024-04-04 19:34 | OR.RPT ---
Operative Report
Operative Report
Date of Operation: 04/04/2024
Pre Op Diagnosis: Symptomatic left carotid stenosis
Post Op Diagnosis: Symptomatic left carotid stenosis
Procedure: LEFT carotid endarterectomy with patch angioplasty using bovine pericardium
Surgeon: Diego Sousa III, MD
Registered Medical Assistant: General
Anesthesia: General
Complications: None
History and Indications for Procedure: 69-year-old female with symptomatic left carotid stenosis. She was brought to the operating room for carotid intervention.
Procedure in Detail: Wilder Garrison was correctly identified and placed supine on the operating table. After adequate induction of anesthesia the left neck was positioned, prepped and draped in the usual sterile fashion. Preoperative antibiotics
were administered. A timeout procedure was performed with the nursing and anesthesia staff confirming the patients identity as well as the nature and laterality of the procedure.
The carotid bifurcation was marked with ultrasound at the beginning of the case. The incision was planned accordingly. An incision was made along the anterior border of the left sternocleidomastoid muscle. Electrocautery was used to divide the
subcutaneous tissue and platysma. The carotid sheath was entered with sharp dissection. The internal jugular vein was retracted laterally. The vagus nerve was identified and protected throughout the case. The common carotid artery was identified at
the base of this incision and carefully encircled with a vessel loop. The patient was systemically heparinized. The dissection was continued distally towards the carotid bifurcation. The facial vein was skeletonized, ligated and divided between ties
and clips. The proximal external carotid artery was encircled with a vessel loop. The distal internal carotid artery was encircled with a vessel loop at a soft spot on the artery beyond the plaque. The hypoglossal nerve was identified and protected.
The internal vessel loop was secured followed by the common and external. An arteriotomy was made on the distal common carotid artery with an 11-blade. This was extended proximally and distally with Durbin scissors. The arteriotomy was extended
distally through the plaque to an area of normal appearing internal carotid artery. The distal vessel loop was replaced with a short tip hockey-stick type vascular clamp. An endarterectomy was performed with a Christine elevator in the standard
fashion. The proximal extent of the plaque was transected with scissors. The distal end of the plaque in the internal carotid artery feathered very nicely but there was a slight intimal flap on the postero-medial wall. This was tacked down with a
single interrupted 7-0 Prolene suture with a nice result. The plaque extending into the external carotid artery was everted. Once the plaque was fully removed the endarterectomy plane was irrigated with heparinized saline and any loose fronds of
tissue were removed. A pre-cut piece of bovine pericardium was sewn in place using a running 6-0 Prolene suture. Prior to the completion of the patch the common carotid was allowed to forward bleed and the external was allowed to back bleed. The
area under the patch was irrigated with heparinized saline to remove any potential thrombus or debris. The anastomosis was completed.
The external vessel loop was released first, followed by the common and then the internal. There was an excellent pulse in the distal internal carotid artery. An excellent quality Doppler signal in the distal internal carotid artery was also
confirmed. The patch suture line was closely inspected for hemostasis and was achieved. Protamine was administered. Hemostasis was achieved in the wound bed. The wound was irrigated with saline solution.
The wound was then closed in layers. Sterile skin glue was applied. The patient awoke from anesthesia with no immediate neuro deficits and was taken to the PACU in stable condition.
Attestation: I was present and responsible for the entire procedure
Signed:
Diego Sousa III, MD
[facility] Vascular Surgery
[phone] (cell)
--- NOTE | 2024-04-04 20:03 | W.IMMPOSTOP ---
Surgical Immed Post Op Note
-
Primary Surgeon: Lars
Assisting Surgeon: Zita
Pre-op Diagnosis: Carotid artery stenosis, left
Post-op Diagnosis: Carotid artery stenosis, left
Procedure Performed: L CEA
Anesthesia Type: General
Specimen / Cultures: None
Estimated Blood Loss: 50 cc
Complications: None
Operative Findings: L CEA, soft plaque at carotid bifurcation
[2024-04-04 20:35] LABS: Hematocrit 41.2 % (37.0-47.0); Hemoglobin 13.6 g/dL (12.0-16.0); Mean Corpuscular Hgb 29.8 pg (27.0-31.0); Mean Corpuscular Volume 90.2 fL (81.0-99.0); Mean Platelet Volume 8.6 fL (7.4-10.4); Platelet Count 277 10^3/uL (130-400); Red Blood Cell Count 4.57 10^6/uL (4.20-5.40); Red Cell Dist. Width 13.2 % (11.5-14.5); White Blood Cell Count 10.5 10^3/uL (4.8-10.8)
[2024-04-04 20:45] LABS: Glucose - Point of Care 166 mg/dl (70-99)
[2024-04-04 20:46] LABS: INR 1.09; PT 14.5 Sec (11.4-14.6)
[2024-04-04 20:47] LABS: APTT 36.1 Sec (23.4-35.0)
[2024-04-04] MEDS: NEO-SYNEPHRINE 250 IV (20:49)
[2024-04-04 20:54] LABS: Blood Urea Nitrogen 23 mg/dl (7-17); Calcium 8.8 mg/dl (8.4-10.2); Carbon Dioxide 22 mmol/L (22-30); Chloride 105 mmol/L (98-107); Estimated Creatinine Clearance 82 ml/min; Glucose 159 mg/dl (70-99); Potassium 4.4 mmol/L (3.5-5.1); Sodium 137 mmol/L (135-145); eGFR > 60.00
--- NOTE | 2024-04-04 21:19 | PTCARENOTE ---
PT arrives to PACU not following commands, moving all over bed, taking O2 off, after 5 mins, PT able to follow commands, tongue midline, smile symmetrical, equal hand and foot strength, Jeanette zeroed and flushed, PT's BP continued to drop down to SBP
88, orders require SBP 100-165, Solis-Syn started as ordered, See titration list, left neck incision closed with Xofin, ice applied
[2024-04-04] MEDS: NSS 1000 IV (21:48)
[2024-04-04] MEDS: MAG-TAB SR 84 MG PO (22:32)
[2024-04-04] MEDS: LIPITOR 40 MG PO (22:32)
--- NOTE | 2024-04-04 23:06 | PTCARENOTE ---
Received patient from PACU AAOx3, following commands, denying pain. Drowsy, PERRLA 3 mm, tongue midline, upper and lower extremity strengths equal b/l. Normal sinus/sinus radha, 50s-80s, normothermic. +1 edema on RLE, palpable pedal pulses b/l. On
phenylephrine gtt per order to maintain SBP 100-165. On 3 liters nasal cannula saturating 97%, lung sounds diminished throughout. Abdomen round, obese, soft, hypoactive bowel sounds. Purewick placed. Right heel wound dressing CDI. Left neck GLORY,
surgical glue intact. PIVs patent, WNL. NSS at 80 ml/hr ongoing per order. Left radial marybel zeroed, leveled, and flushed. Sister at bedside updated. Call rossi within reach, hourly neuro checks ongoing.
[2024-04-05] VITALS (13 sets, daily range): BP systolic 94–132; BP diastolic 42–81; BMI 37.6
--- NOTE | 2024-04-05 00:13 | PTCARENOTE ---
Patient assessment unchanged from previous, resting comfortably. Call rossi within reach.
[2024-04-05] MEDS: TYLENOL 650 MG PO ×2 (05:22→23:18)
--- NOTE | 2024-04-05 05:37 | PTCARENOTE ---
Addendum entered by Anne Sprague RN 04/05/24 05:58:
Patient appears to have small hematoma at incision site, vascular surgery notified.
Original Note:
Patient assessment unchanged from previous, tylenol given for 06/02 headache. Call rossi within reach.
[2024-04-05 05:49] LABS: % Basophils 0.1 % (0-2); % Immature Granulocytes 0.3 % (0-0.5); % Lymphocytes 8.4 % (20.5-51.1); % Monocytes 3.2 % (1.7-9.3); Absolute Monocytes 0.4 10^3/uL (0.1-0.6); Absolute Neutrophils 10.2 10^3/uL (1.4-6.5); Hemoglobin 13.8 g/dL (12.0-16.0); Mean Corp Hgb Conc. 33.7 g/dL (33.0-37.0); Mean Corpuscular Hgb 30.1 pg (27.0-31.0); Mean Corpuscular Volume 89.5 fL (81.0-99.0); Mean Platelet Volume 8.9 fL (7.4-10.4); Nucleated Red Blood Cells % 0 %; Platelet Count 356 10^3/uL (130-400); Red Blood Cell Count 4.58 10^6/uL (4.20-5.40); Red Cell Dist. Width 13.2 % (11.5-14.5); White Blood Cell Count 11.6 10^3/uL (4.8-10.8)
[2024-04-05 05:56] LABS: APTT 35.9 Sec (23.4-35.0); PT 13.5 Sec (11.4-14.6)
[2024-04-05 06:08] LABS: Blood Urea Nitrogen 27 mg/dl (7-17); Calcium 8.9 mg/dl (8.4-10.2); Carbon Dioxide 22 mmol/L (22-30); Chloride 105 mmol/L (98-107); Estimated Creatinine Clearance 95 ml/min; Glucose 175 mg/dl (70-99); Potassium 4.5 mmol/L (3.5-5.1); Sodium 137 mmol/L (135-145); eGFR > 60.00
[2024-04-05] MEDS: NSS IV (07:14)
[2024-04-05] MEDS: TOPROL XL PO (07:14)
--- NOTE | 2024-04-05 07:38 | CON.INTV ---
Consultation
Consultation Request
Date/Time Consultation Requested: 04/05/2024-7 AM
Date/Time Consultation Performed: 04/05/2024-7:30 AM
Requesting Provider: Vascular surgery
Performing Provider: Dr. Sylvester
Reason for Consultation: Postoperative critical care management
Medical History
-
Chief Complaint: Carotid stenosis
History of Present Illness:
69-year-old non-smoking obese female with a history of CAD/CABG x 6, hypertension, hyperlipidemia, diabetes and chronic back pain who is still grieving the loss of her sister from breast cancer who presented with strokelike symptoms found to have
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 Patient is seen postoperatively and she denies any shortness of breath, chest pain, chest tightness, abdominal pain, new headache,
dysarthria, dysphagia, or focal weakness or numbness.
Past Medical History
Past Medical History: None (Hypertension. Hyperlipidemia. Obesity. Chronic back pain. CAD/CABG x 6. Diabetes. Lumbar surgery many years ago.)
Social History
Tobacco: Non-smoker
Alcohol: None
Drug: None
Living: With Family
Occupational Exposures: No known asbestos exposure
Environmental Exposures: No known tuberculosis exposure
Family History
Family History: Reviewed & Not Pertinent
Allergies / Home Medications
Allergies
Allergy/AdvReac Type Severity Reaction Status Date / Time
No Known Allergies Allergy Verified 04/14/23 18:24
Home Medications
�Medication �Instructions �Recorded �Confirmed �Last Taken �Type
aspirin 81 mg chewable tablet 81 mg PO DAILY Heart 04/24/23 04/01/24 04/01/24 Rx
(Children's Aspirin) disease/condition 30 days #30 tabs
clopidogrel 75 mg tablet 75 mg PO DAILY Heart 04/24/23 04/01/24 04/01/24 Rx
disease/condition 30 days #30 tabs
empagliflozin 10 mg tablet 10 mg PO DAILY 30 days #30 tabs 04/24/23 04/01/24 04/01/24 Rx
(Jardiance)
metoprolol succinate 25 mg 12.5 mg (1/2 x 25 mg) PO DAILY 04/24/23 04/01/24 04/01/24 Rx
tablet,extended release 24 hr Heart disease/condition 30 days
#30 tabs
ascorbic acid (vitamin C) 500 mg 500 mg PO DAILY Supplement 04/01/24 04/01/24 04/01/24 History
tablet (Vitamin C)
atorvastatin 80 mg tablet 40 mg PO HS High cholesterol 04/01/24 04/01/24 03/31/24 History
coQ10 (ubiquinol) 100 mg capsule 100 mg PO QPM Supplement 04/01/24 04/01/24 03/31/24 History
glipizide 5 mg tablet 5 mg PO QPM Diabetes 04/01/24 04/01/24 03/31/24 History
lisinopril 10 mg tablet 5 mg PO DAILY Blood Pressure 04/01/24 04/01/24 04/01/24 History
magnesium oxide 400 mg PO HS Supplement 04/01/24 04/01/24 03/31/24 History
omega 9-mym-nxh-fish oil 1,000 mg 1 cap PO QPM Supplement 04/01/24 04/01/24 03/31/24 History
(120 mg-180 mg) capsule (Fish Oil)
Review of Systems
-
Unable to Obtain full review of systems at this time due to: Other (Per HPI)
Vitals / Labs / Diagnostic Testing
Vital Signs
Temp Pulse Resp BP Pulse Ox
98.5 F 66 17 94/58 94
04/05/24 05:37 04/05/24 07:13 04/05/24 07:13 04/05/24 07:13 04/05/24 07:13
Lab Data
04/05/24 05:28
04/05/24 05:28
Laboratory Results
04/04/24 04/05/24
20:28 05:28
PT 14.5 13.5
INR 1.09 1.00
APTT 36.1 H 35.9 H
Diagnostic Testing:
Physical Exam
-
Exam:
Well-nourished and well-developed in no apparent distress
HEENT-atraumatic, normocephalic
Neck-supple, no JVD, no bruit
Heart-regular rate and rhythm-no murmurs, rubs or gallops
Chest-clear to auscultation, no wheezes, crackles
Back-no tenderness
Abdomen-soft, nontender, nondistended, no hepatosplenomegaly
Extremities-no cyanosis, clubbing, edema and good peripheral pulses
Integument-intact, no rashes, lesions or ecchymosis
Neurology-alert and oriented, nonfocal motor and sensory exam
Assessment
-
69-year-old non-smoking obese female with a history of CAD/CABG x 6, hypertension, hyperlipidemia, diabetes and chronic back pain who is still grieving the loss of her sister from breast cancer who presented with strokelike symptoms found to have
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
TIA/CVA found to have bilateral internal carotid artery stenosis
Symptomatic carotid artery stenosis-bilateral left greater than right
Status post left carotid endarterectomy with patch angioplasty-Dr. Sousa 04/04/2024
PAD
Right lateral heel wound
Hyperkalemia
Mild leukocytosis
Hyperglycemia
Conditions present prior to admission:
Hypertension.
Hyperlipidemia.
Chronic back pain.
CAD/CABG x 6-03/2023
Diabetes.
Morbid obesity-BMI greater than 40
Lumbar surgery many years ago.
Plan
Postoperative surgical intensive care unit monitoring
Supplemental oxygen as needed
Incentive spirometry
Aspiration precautions
Neuro and vascular checks per protocol
Monitor blood pressure/perfusion pressures and pulses closely
Vascular surgery following-correspondence and operative notes reviewed
To evaluate lower extremity probable PAD potential need for revascularization
Replace electrolytes
Monitor blood sugar
Insulin supplementation as needed
DVT prophylaxis
Early nutrition
Early mobilization
Consider outpatient obstructive sleep apnea workup
Critical care statement: A total of 55 minutes of critical care time was provided for this patient today. This includes management of unstable vital signs, evaluation of the patient at bedside, reviewing the patient's pertinent medical records
including radiographs, microbiology, laboratory evaluations, and discussion with primary team, consultants, pharmacy, nutrition, physical therapy, case management, charge nurse, critical care nursing, and respiratory therapy.
Diagnostic data:
Chest x-ray 04/05/2024-NAD
MRI brain 04/02/2024-small subacute infarct left periventricular white matter measuring [address] chest 04/06/2023-no evidence for central pulmonary embolism, cardiomegaly, suspected prominence of pulmonary vasculature
Lower extremity ultrasound 04/23/2023-no evidence for DVT right lower extremity probable large hematoma or seroma medial right thigh subcutaneous tissue
Transesophageal echocardiogram 04/09/2023-EF 55-60%, stage II diastolic function, mild mitral digitation, moderate sessile atheroma
Data Reviewed
-
EKG: Report reviewed by me
Radiology: Report reviewed by me
CT Scan: Report reviewed by me
MRI: Report reviewed by me
Medical Tests (Nuc Med, Echo etc): Report reviewed by me
Labs: Labs reviewed by me
Old Records: Reviewed
Critical Care Time (in minutes): 55
[2024-04-05] MEDS: POLYSPORIN OINTMENT 1 APPLIC TOPICAL (08:00)
[2024-04-05] MEDS: PLAVIX 75 MG PO (08:00)
[2024-04-05] MEDS: MIRALAX 17 GRAMS PO (08:01)
[2024-04-05] MEDS: LOW STRENGTH ASPIRIN 81 MG PO (08:01)
[2024-04-05] MEDS: FARXIGA 10 MG PO (08:01)
[2024-04-05] MEDS: VITAMIN C 500 MG PO (08:01)
[2024-04-05] MEDS: NOVOLOG FLEXPEN-LOW RESISTANCE SC ×3 (08:03→17:29)
--- NOTE | 2024-04-05 08:07 | W.PN.VS ---
Addendum entered and electronically signed by Diego Sousa III, MD 04/05/24 11:18:
This patient was seen and examined with GAYATRI Baum. I agree with the history and physical exam as well as the assessment and plan.
Signed:
Diego Sousa III, MD
[facility] Vascular Surgery
[phone] (hvgs)
Original Note:
Today's Communication / Plan
-
Patient seen and examined at bedside, with Dr. Diego Sousa III below plan reviewed with attending
Assessment/Plan
-
Assessment: 69-year-old female POD #1 left carotid endarterectomy
Plan:
Wean off Solis-Synephrine infusion as tolerated, once Solis-Synephrine weaned off discontinue arterial line
Discontinue IV fluids
OOB to chair with progression to ambulation as tolerated
Patient reports rest pain like symptoms chronic at right lower extremity with tissue loss over fifth metatarsal, stable will begin PAD workup with noninvasive arterial ultrasound and ALEXANDRA/TBI
Continue DAPT of aspirin 81 mg and Plavix 75 mg p.o. daily
Subjective Data
-
Date of Service: April 05, 2024
Patient seen and examined at bedside, offers no complaints. Reports resolution of headache pain following administration of Tylenol earlier this morning. Reports tolerating p.o. diet with no difficulty swallowing. Denies nausea, vomiting, fever,
and chills.
Objective Data
-
Vital Signs
Temp Pulse Resp BP Pulse Ox
98.5 F 66 17 94/58 94
04/05/24 05:37 04/05/24 07:13 04/05/24 07:13 04/05/24 07:13 04/05/24 07:13
Intake and Output
04/04/24 04/05/24 04/06/24
06:59 06:59 06:59
Intake Total 570 / 570 882 / 986 104 / 104
Output Total 350 / 350
Balance 570 / 570 532 / 636
Intake:
Oral fluids 570 / 570
IV fluids (Total)
Nss 1,000 ml @ 80 mls/hr IV . 720 / 800 80 / 80
[id number] ALLYN Rx#:[id number]
solis 162 / 186
Output:
Urine, Voided 350 / 350
Other:
Number of approximated MODERATE 2
amounts of urine
Lab Results
04/05/24 05:28
04/05/24 05:28
Calcium 8.9 mg/dl (8.4-10.2) 04/05/24 05:28
Total Bilirubin 0.7 mg/dl (0.2-1.3) 04/02/24 07:15
AST 26 U/L (14-36) 04/02/24 07:15
ALT 32 U/L (0-35) 04/02/24 07:15
Alkaline Phosphatase 72 U/L (38-126) 04/02/24 07:15
Total Protein 7.4 g/dl (6.3-8.2) 04/02/24 07:15
Albumin 4.6 g/dl (3.5-5.0) 04/02/24 07:15
Physical Exam
-
No pain distress, resting comfortably in bed
Left neck surgical incision CDI, scant nickel sized hematoma at upper pole of surgical incision, soft, Exofin glue intact and suture line approximated, tongue midline, face symmetrical
No tachycardia
Dyspnea on room air
Bilateral upper extremities and lower extremities with equal strength
[2024-04-05 08:13] LABS: Glucose - Point of Care 144 mg/dl (70-99)
[2024-04-05 12:01] LABS: Glucose - Point of Care 123 mg/dl (70-99)
--- NOTE | 2024-04-05 12:32 | PTCARENOTE ---
Neurochecks WNL. Left neck incision C/D/I hematoma unchanged. Phenylephrine weaned to off. D/c IVF per order. Getting bedside LE u/s at this time. Plan to get pt OOB after test. All other assessments unchanged.
--- NOTE | 2024-04-05 12:55 | W.PN.HOSP.TC ---
Today's Communication/Plan
-
Monitor vital signs see plan
Wean pressors as tolerated
On aspirin and Plavix
Ultrasound lower extremity with ALEXANDRA per vascular
Hold metoprolol, lisinopril
Assessment / Plan
Assessment / Plan
Gen-AAOx3, NAD
HEENT-NC, AT, anicteric, clear oral mm
Neck-supple
CV-reg, no M, +S1/S2
Lungs-clear B/L
Abd-soft, NT, ND
Ext-no edema
Musculoskeletal-no cyanosis, clubbing
Skin-warm and dry, right lateral heel wound without drainage
Neuro-grossly non-focal
Psych-calm, cooperative
Subacute stroke -brain MRI confirms small subacute infarct in the left periventricular white matter, measuring 5 mm. No focal deficits on exam.
Continue dual antiplatelet therapy.
Bilateral carotid stenosis - worse on the left. 75% right carotid bulb stenosis, greater than 90% left carotid bulb. Noted on CTA. s/p left carotid endarterectomy 04/04. Vascular surgery following. Postop was hypotensive. Now in ICU. On rickie-.
Wean rickie as tolerated
Right lateral heel wound -vascular surgery aware, US RLE
Hyperkalemia
Resolved
Hold lisinopril for now
CAD/CABG - March 2023. 6 vessel.
DM2 with hyperglycemia - Daytime glucoses controlled. Hemoglobin A1c 6.9%. Hold glipizide. Continue Jardiance. Sliding scale insulin.
Essential hypertension -currently hypotensive on rickie-. Hold metoprolol, hold lisinopril
hyperlipidemia -atorvastatin.
Chronic back pain
obesity due to excess calories -reportedly lost 40 pounds since CABG surgery last year.
Full code
I spent a total of 52 minutes with the patient or on the floor. More than 50% of this time involved counseling and coordination of care.
Anticipated Discharge: 24 - 48 hours
Subjective/Interval History
-
Date of Service: April 05, 2024
Denies nausea
Objective Data
-
Labs:
Laboratory Results
04/05/24
05:28
WBC 11.6 H
Hgb 13.8
Hct 41.0
Plt Count 356 D
PT 13.5
INR 1.00
APTT 35.9 H
Sodium 137
Potassium 4.5
Chloride 105
Carbon Dioxide 22
BUN 27 H
Creatinine 0.7
Glucose 175 H
Calcium 8.9
Vital Signs:
Vital Signs
Temp Pulse Resp BP Pulse Ox
98.7 F 88 22 102/51 94
04/05/24 12:11 04/05/24 12:00 04/05/24 12:00 04/05/24 08:01 04/05/24 12:00
I&O
04/04/24 04/05/24 04/06/24
06:59 06:59 06:59
Intake Total 570 / 570 882 / 986 604 / 604
Output Total 350 / 350
Balance 570 / 570 532 / 636 604 / 604
--- NOTE | 2024-04-05 14:34 | CM ---
Reviewed the chart notes and spoke with the patient and her sister at the bedside. Patient resides with her sister in a two story home with two steps to enter. The patient has a cane she uses with ambulation, but also has in home shower rails,
rolling walker, and a stair glide. The patient has not had VN in the past, but has been to [facility]. The patient confirmed her pharmacy of choice is the [facility] [place]. CM continues to be available to patient/family and is monitoring
medical plan for needs at discharge.
Plan: Discharge plans will depend on the patient's progress. Patient would benefit from PT/OT evaluation. Patient c/o of RLE pain.
[2024-04-05] MEDS: ROXICODONE 5 MG PO ×2 (14:44→22:30)
--- NOTE | 2024-04-05 16:24 | PTCARENOTE ---
Neuro checks WNL. Ambulated in room with walker. OOB in chair at this time. A-line d/c'd. all other assessments unchanged.
[2024-04-05 17:08] LABS: Glucose - Point of Care 140 mg/dl (70-99)
--- NOTE | 2024-04-05 20:41 | PTCARENOTE ---
Received patient in chair, AAOx3, following commands, denying pain. NIH 0. Sister at bedside, updated. Patient assisted back to bed with walker. Normal sinus, 90s, BP stable, normothermic. Trace RLE edema, palpable radial and pedal pulses b/l. 97%
on room air, lung sounds diminished throughout. Abdomen soft, round, obese, positive bowel sounds. Purewick in place draining yellow urine. Left CEA site approximated, surgiglue intact. PIVs patent, WNL. Call rossi within reach.
[2024-04-05] MEDS: LIPITOR 40 MG PO (21:59)
[2024-04-05] MEDS: MAG-TAB SR 84 MG PO (21:59)
[2024-04-05 22:09] LABS: Glucose - Point of Care 135 mg/dl (70-99)
[2024-04-06] VITALS (12 sets, daily range): BP systolic 101–131; BP diastolic 47–99; BMI 37.0
--- NOTE | 2024-04-06 00:51 | PTCARENOTE ---
Patient reporting pain in RLE, oxycodone and tylenol given, now slowly improving and tolerable. Otherwise patient assessment unchanged from previous, call rossi within reach.
--- NOTE | 2024-04-06 04:57 | PTCARENOTE ---
Assisted patient to bathroom to void and brush teeth. CHG bath done, purewick changed, gown changed. Back in bed, labs sent. Resting comfortably, call rossi within reach.
[2024-04-06 05:07] LABS: % Basophils 0.5 % (0-2); % Eosinophils 1.8 % (0-6); % Immature Granulocytes 0.1 % (0-0.5); % Lymphocytes 37.6 % (20.5-51.1); % Monocytes 7.7 % (1.7-9.3); % Neutrophils 52.3 % (42.2-75.2); Absolute Eosinophils 0.2 10^3/uL (0-0.7); Absolute Lymphocytes 3.1 10^3/uL (1.2-3.4); Absolute Monocytes 0.6 10^3/uL (0.1-0.6); Absolute Neutrophils 4.4 10^3/uL (1.4-6.5); Hematocrit 36.7 % (37.0-47.0); Hemoglobin 12.1 g/dL (12.0-16.0); Mean Corpuscular Hgb 29.6 pg (27.0-31.0); Mean Corpuscular Volume 89.7 fL (81.0-99.0); Mean Platelet Volume 8.9 fL (7.4-10.4); Nucleated Red Blood Cells % 0 %; Platelet Count 275 10^3/uL (130-400); Red Blood Cell Count 4.09 10^6/uL (4.20-5.40); Red Cell Dist. Width 13.5 % (11.5-14.5); White Blood Cell Count 8.3 10^3/uL (4.8-10.8)
[2024-04-06 05:23] LABS: Blood Urea Nitrogen 29 mg/dl (7-17); Calcium 8.7 mg/dl (8.4-10.2); Carbon Dioxide 24 mmol/L (22-30); Chloride 106 mmol/L (98-107); Estimated Creatinine Clearance 82 ml/min; Glucose 128 mg/dl (70-99); Potassium 4.1 mmol/L (3.5-5.1); Sodium 138 mmol/L (135-145); eGFR > 60.00
--- NOTE | 2024-04-06 07:43 | W.PN.INTV ---
Today's Communication / Plan
Recommendations
Increase activity
Wean FiO2
Transfer out of ICU-call pulmonary if respiratory issues arise
Assessment
-
69-year-old non-smoking obese female with a history of CAD/CABG x 6, hypertension, hyperlipidemia, diabetes and chronic back pain who is still grieving the loss of her sister from breast cancer who presented with strokelike symptoms found to have
significant carotid disease and underwent CEA-grooving lathe tender consulted for postop critical care management 04/05/2024.
TIA/CVA found to have bilateral internal carotid artery stenosis
Symptomatic carotid artery stenosis-bilateral left greater than right
Status post left carotid endarterectomy with patch angioplasty-Dr. Sousa 04/04/2024
PAD
Right lateral heel wound
Hyperkalemia
Mild leukocytosis
Hyperglycemia
Conditions present prior to admission:
Hypertension.
Hyperlipidemia.
Chronic back pain.
CAD/CABG x 6-03/2023
Diabetes.
Morbid obesity-BMI greater than 40
Lumbar surgery many years ago.
Plan
Hemodynamically and neurovascularly intact
Wean supplemental oxygen
Incentive spirometry encourage
Aspiration precautions
Monitor hemoglobin
Transfuse if needed
Monitor blood sugars
Insulin supplementation if needed
Neuro and vascular checks per protocol also continue
Vascular surgery following closely-will need outpatient arteriogram of right lower extremity with rest pain
DVT prophylaxis recommended
Nutrition
Increase activity/physical therapy
Consider outpatient obstructive sleep apnea workup
Patient can be transferred out of ICU-call pulmonary if respiratory issues arise
Reviewed the patient's pertinent medical records including radiographs, microbiology, laboratory evaluations, and discussion with primary team, consultants, pharmacy, nutrition, physical therapy, case management, charge nurse, critical care
nursing, and respiratory therapy.
Diagnostic data:
Chest x-ray 04/05/2024-NAD
MRI brain 04/02/2024-small subacute infarct left periventricular white matter measuring [address] chest 04/06/2023-no evidence for central pulmonary embolism, cardiomegaly, suspected prominence of pulmonary vasculature
Lower extremity ultrasound 04/23/2023-no evidence for DVT right lower extremity probable large hematoma or seroma medial right thigh subcutaneous tissue
Transesophageal echocardiogram 04/09/2023-EF 55-60%, stage II diastolic function, mild mitral digitation, moderate sessile atheroma
Subjective Dataa
Subjective Data
Date of Service:
Date of Service: April 06, 2024
Chief Complaint: [facility] Follow Up and Pulmonary Follow Up
Subjective:
No complaints of shortness of breath, chest pain or abdominal pain
Review of Systems
General: Other (Per HPI)
Objective Data
Data Reviewed
Vital Signs / I&O / Oxygen:
Vital Signs
Temp Pulse Resp BP Pulse Ox
98.4 F 83 12 115/66 97
04/06/24 04:57 04/06/24 06:00 04/06/24 06:00 04/06/24 06:00 04/05/24 20:38
Intake and Output
04/05/24 04/06/24 04/07/24
06:59 06:59 06:59
Intake Total 882 / 986 1094 / 1094
Output Total 350 / 350 350 / 350
Balance 532 / 636 744 / 744
SaO2 97
Nasal Cannula flow liters per 3
minute
Physical Exam
General: Respiratory Distress (n) and Comfortable
HEENT: Normocephalic, Anicteric and Moist Mucous Membranes
Cardiovascular: Regular Rhythm
Respiratory: Wheeze (n), Crackles (n), Rhonchi (n), Non-Labored Respirations, Accessory Resp Muscle Use (n) and Stridor (n)
GI: Soft, Non Distended and Non Tender
Neurology: Awake, Alert and No Motor Deficits
Skin: Warm, Good Color and Cyanosis (n)
Labs/Micro/Reports
Lab Data
04/06/24 04:41
04/06/24 04:41
--- NOTE | 2024-04-06 07:45 | PTCARENOTE ---
Assumed care of patient. Pt rec'd A&Ox3. Pleasant. Denies pain at present. Able to VENTURA's...good sensation bilateral lower legs/feet. S1 S2 reg w/ NSR/1st degree AVB/BBC on monitor. Weak PP. Trace generalized edema. On R/A....lungs clear.
Abdomen obese...+BS. PW on. Left neck incision GLORY and well approximated w/ surgiglue. Area red ecchymotic..soft to touch. Right foot dressing changed per orders. 18P RH capped. 20P RAC capped. VS documented. Call rossi within reach. Sister
at bedside. Vascular comfortable w/ d/c to home. made aware. 1800 danie ada diet...takes meds whole and eats w/o issue. Will continue to monitor.
[2024-04-06 07:49] LABS: Glucose - Point of Care 127 mg/dl (70-99)
[2024-04-06] MEDS: NOVOLOG FLEXPEN-LOW RESISTANCE SC (07:50)
[2024-04-06] MEDS: MIRALAX PO (07:52)
[2024-04-06] MEDS: VITAMIN C 500 MG PO (07:53)
[2024-04-06] MEDS: LOW STRENGTH ASPIRIN 81 MG PO (07:53)
[2024-04-06] MEDS: PLAVIX 75 MG PO (07:53)
[2024-04-06] MEDS: FARXIGA 10 MG PO (07:53)
[2024-04-06] MEDS: POLYSPORIN OINTMENT 1 APPLIC TOPICAL (07:58)
--- NOTE | 2024-04-06 07:59 | W.PN.VS ---
Addendum entered and electronically signed by Shon Patterson MD 04/06/24 10:27:
Seen and examined with NADEEN Robert. Incision clean dry and intact, no hematoma. Neurologically moves all extremities, tongue midline. Agree with findings and plan as noted and discussed below.
Original Note:
Today's Communication / Plan
-
Patient seen and examined at bedside with Dr. Shon Patterson, below plan reviewed with attending.
Assessment/Plan
-
Assessment: 69-year-old female POD #2 left carotid endarterectomy
Plan:
Continue ambulation as tolerated
Patient reports rest pain like symptoms chronic at right lower extremity with tissue loss over fifth metatarsal, will schedule outpatient angiogram following recovery from carotid endarterectomy
Continue DAPT of aspirin 81 mg and Plavix 75 mg p.o. daily
Follow-up appointment placed in discharge instructions
From a vascular surgical perspective okay for discharge
Subjective Data
-
Date of Service: April 06, 2024
Patient seen and examined at bedside, denies headache and reports well-managed left neck surgical incision pain. Does endorse right foot discomfort overnight that was well-managed with prescribed pain medication. Tolerating p.o. diet.
Objective Data
-
Vital Signs
Temp Pulse Resp BP Pulse Ox
97.9 F 83 12 115/66 97
04/06/24 07:46 04/06/24 06:00 04/06/24 06:00 04/06/24 06:00 04/05/24 20:38
Intake and Output
04/05/24 04/06/24 04/07/24
06:59 06:59 06:59
Intake Total 882 / 986 1094 / 1094
Output Total 350 / 350 350 / 350
Balance 532 / 636 744 / 744
Intake:
Oral fluids 890 / 890
IV fluids (Total) 882 / 986 204 / 204
Nss 1,000 ml @ 80 mls/hr IV . 720 / 800 160 / 160
[id number] [facility] Rx#:[id number]
rickie 162 / 186 44 / 44
Output:
Urine, Voided 350 / 350 350 / 350
Other:
Number of approximated MODERATE 1
amounts of urine
Number of approximated LARGE 1
amounts of urine
Lab Results
04/06/24 04:41
04/06/24 04:41
Calcium 8.7 mg/dl (8.4-10.2) 04/06/24 04:41
Total Bilirubin 0.7 mg/dl (0.2-1.3) 04/02/24 07:15
AST 26 U/L (14-36) 04/02/24 07:15
ALT 32 U/L (0-35) 04/02/24 07:15
Alkaline Phosphatase 72 U/L (38-126) 04/02/24 07:15
Total Protein 7.4 g/dl (6.3-8.2) 04/02/24 07:15
Albumin 4.6 g/dl (3.5-5.0) 04/02/24 07:15
Physical Exam
-
No pain distress, resting comfortably in bed
Left neck surgical incision CDI, scant nickel sized hematoma at upper pole of surgical incision (unchanged from prior assessment), soft, Exofin glue intact and suture line approximated, tongue midline, face symmetrical
No tachycardia
Dyspnea on room air
Bilateral upper extremities and lower extremities with equal strength
--- NOTE | 2024-04-06 10:44 | W.PN.HOSP.TC ---
Addendum entered and electronically signed by Michael Moore MD 04/14/24 13:05:
Suspect CVA was related to stroke was related to carotid Stenosis.
Addendum entered and electronically signed by Michael Moore MD 04/06/24 11:27:
Postoperative shock
Original Note:
Today's Communication/Plan
-
Monitor vitals
See plan
Restart lisinopril
Continue with dual antiplatelet therapy
Follow-up with vascular surgery soon outpatient
Discharge today
Time of discharge 38 minutes
Assessment / Plan
Assessment / Plan
Gen-AAOx3, NAD
HEENT-NC, AT, anicteric, clear oral mm
Neck-supple
CV-reg, no M, +S1/S2
Lungs-clear B/L
Abd-soft, NT, ND
Ext-no edema
Musculoskeletal-no cyanosis, clubbing
Skin-warm and dry, right lateral heel wound without drainage
Neuro-grossly non-focal
Psych-calm, cooperative
Subacute stroke -brain MRI confirms small subacute infarct in the left periventricular white matter, measuring 5 mm. No focal deficits on exam.
Continue dual antiplatelet therapy.
Bilateral carotid stenosis - worse on the left. 75% right carotid bulb stenosis, greater than 90% left carotid bulb. Noted on CTA. s/p left carotid endarterectomy 04/04. Vascular surgery following. Postop was hypotensive. Monitor in ICU, on
rickie-. Now weaned off. Restart lisinopril. Restart metoprolol when blood pressure is greater than 130
Right lateral heel wound -vascular surgery aware, US RLE with PAD. Patient will follow-up soon with vascular surgery for further intervention
Hyperkalemia
Resolved
CAD/CABG - March 2023. 6 vessel.
DM2 with hyperglycemia - Daytime glucoses controlled. Hemoglobin A1c 6.9%. Restart glipizide. Continue Jardiance. Sliding scale insulin.
Essential hypertension -currently hypotensive on rickie-. Hold metoprolol, hold lisinopril
hyperlipidemia -atorvastatin.
Chronic back pain
obesity due to excess calories -reportedly lost 40 pounds since CABG surgery last year.
Full code
Anticipated Discharge: Today
Subjective/Interval History
-
Date of Service: April 06, 2024
Denies nausea
Objective Data
-
Labs:
Laboratory Results
04/06/24
04:41
WBC 8.3
Hgb 12.1
Hct 36.7 L
Plt Count 275 D
Sodium 138
Potassium 4.1
Chloride 106
Carbon Dioxide 24
BUN 29 H
Creatinine 0.8
Glucose 128 H
Calcium 8.7
Vital Signs:
Vital Signs
Temp Pulse Resp BP Pulse Ox
97.9 F 83 12 115/66 97
04/06/24 07:46 04/06/24 06:00 04/06/24 06:00 04/06/24 06:00 04/05/24 20:38
I&O
04/05/24 04/06/24 04/07/24
06:59 06:59 06:59
Intake Total 882 / 986 1094 / 1094 360 / 360
Output Total 350 / 350 350 / 350
Balance 532 / 636 744 / 744 360 / 360
--- NOTE | 2024-04-06 10:46 | W.DCSUMMARY ---
Discharge Summary
Discharge Data
Date of Admission: 04/02/24
Date of Discharge: 04/06/24
-
Pending Results: No
Hospital Course
69-year-old female with past medical history of CAD, CABG, diabetes mellitus, essential hypertension, hyperlipidemia, chronic back pain, obesity came to the hospital with subacute stroke. Patient was seen by neurology and was recommended aspirin
and Plavix. On imaging patient also found to have bilateral carotid stenosis and was seen by vascular surgery. Patient was taken for left carotid arterectomy on this hospitalization. Postop patient went into postoperative shock requiring pressors
and was transferred to the ICU. Patient was able to be weaned off pressors eventually prior to the discharge. She also had right lateral heel wound for which vascular surgery was following and had ultrasound of the lower extremity which was
consistent with PAD. Vascular surgery recommended patient to follow-up with them closely outpatient for angio. Once patient symptoms continue to improve, she was then discharged home with instructions to follow-up with all her physicians
outpatient.
Discharge Plan
-
Patient Disposition: Home (Routine Discharge)
Discharge Diagnosis/Procedures: Subacute stroke
Bilateral carotid stenosis status post left carotid endarterectomy
Postoperative shock after endarterectomy
Right lateral heel wound likely secondary to PAD
Hypertension
Diet: As tolerated
Activity: No strenuous activity
Driving Restrictions: Not until seen by your Dr
Bathing Restrictions: OK to Shower
Activity Restrictions/Additional Instructions:
Wound Care Instructions
R heel and lateral foot: clean with soap and water, Polysporin to open ulcers, adaptic and dry dressing change daily.
offload heel with fiber filled boot when in bed only
Follow up at wound care center call for an appointment.
Stand Alone Forms: DC Instr - Vascular OR
Referrals:
Edith Hernandez PA-C [Specified Professional Personl] - 04/20/24 10:30 am
Herrera Garg MD [Active] - in three to four weeks
Quoc Cabrales MD, Resident [Family Provider] - in less than 1 week
Dexter Sylvester MD [Active] - in two to four weeks (Obstructive sleep apnea workup)
Prescriptions:
New
polyethylene glycol 3350 17 gram Powder In Packet
17 g PO DAILY Qty: 30 0RF
oxycodone 5 mg Tablet
5 mg PO Q4HPRN PRN (Reason: moderate to severe pain) Qty: 15 0RF
Polysporin 500-10,000 unit/gram Ointment In Packet
1 applic topical DAILY Qty: 144 0RF
acetaminophen 325 mg Tablet
650 mg PO Q4HPRN PRN (Reason: mild pain/VARGAS/temp>100.5) Qty: 0 0RF
Continued
ascorbic acid (vitamin C) [Vitamin C] 500 mg tablet
500 mg PO DAILY
atorvastatin 80 mg tablet
40 mg PO HS
glipizide 5 mg tablet
5 mg PO QPM
lisinopril 10 mg Tablet
5 mg PO DAILY
omega 3-lfv-tln-fish oil [Fish Oil] 1,000 (120-180) mg Capsule
1 cap PO QPM
coQ10 (ubiquinol) 100 mg Capsule
100 mg PO QPM
magnesium oxide 400 mg magnesium Tablet
400 mg PO HS
aspirin [Children's Aspirin] 81 mg Tablet,Chewable
81 mg PO DAILY 30 Days Qty: 30 0RF
clopidogrel 75 mg Tablet
75 mg PO DAILY 30 Days Qty: 30 0RF
Jardiance 10 mg Tablet
10 mg PO DAILY 30 Days Qty: 30 0RF
Held
metoprolol succinate 25 mg Tablet Extended Release 24 Hr
12.5 mg PO DAILY 30 Days Qty: 30 1RF
Hold Instructions: Restart when blood pressure is greater than 130/80
Discharge Orders:
Discharge Patient (As Directed); Ordered 04/06/24
Ordered By: Michael Moore
Discharge Date and Time
Discharge Date/Time: 04/06/24 11:59
Print Language: WALLISIAN
--- NOTE | 2024-04-06 11:01 | CM ---
Met with patient at bedside to discuss discharge plan; home health/VN offered; patient declined
IMM benefit explained; form signed @ 1100
Patient reported that she has transportation home
Plan: discharge to home; no needs
--- NOTE | 2024-04-06 11:08 | PN.CDI ---
CDI
- -
CDI:
Physician Documentation Request
Admit Date: 04/02/24 09:10
Dear Doctor Oscar,
Please review the following and provide your response in the progress notes.
Current documentation includes a diagnosis of hypotension.
Clinical Indicators:
Pt admitted with CVA/ Carotid artery stenosis s/p left carotid endarterectomy 04/04.
Progress note 04/05,'Wean pressors as tolerated... Postop was hypotensive. Now in ICU. On solis-. Wean solis as tolerated..'
Patient care note 04/04 @ 2119,' BP continued to drop down to SBP 88, orders require SBP 100-165, Solis-Syn started as ordered..'
04/04/24
20:17 04/04/24
20:30 04/04/24
20:45
Blood pressure 91/51 89/47
MAP (cuff-Jackson Monitor) 59 58
04/05/24
00:00 04/05/24
07:13
Blood pressure 94/58
MAP (cuff-Jackson Monitor) 58
Please clarify which of the following is the most likely etiology of the above symptoms and treatment rendered:
Cardiogenic shock
Postoperative shock
Post -op hypotension only
Other ( please specify)
Use of terms such as suspected, likely, concern for, or probable (associated with a specific diagnosis that is being evaluated, monitored, or treated as if it exists) are acceptable and can be coded in the inpatient setting, when documented at the
time of discharge.
Thank you,
Emilia Amador RN
CDI Specialist
[place] [facility]
Please use your independent medical judgment in providing your response.
--- NOTE | 2024-04-06 11:15 | PTCARENOTE ---
Discharge instructions reviewed and packet provided to patient. All questions answered. Ride home en route. Telemetry and IV sites removed. Call rossi within reach if assistance needed prior to discharge.
--- NOTE | 2024-04-11 11:46 | PN.CDI ---
CDI
- -
CDI:
Physician Documentation Request
Admit Date: 04/02/24 09:10
Dear Doctor Oscar,
Please review the following and provide your response in the progress notes.
Clinical Indicators:
Pt admitted with TIA found to have Carotid Stenosis s/p Carotid Stenosis
Progress note 04/05&04/06, ' Subacute stroke -brain MRI confirms small subacute infarct in the left periventricular white matter, measuring 5 mm. No focal deficits on exam.Continue dual antiplatelet therapy.......Bilateral carotid stenosis - worse
on the left. 75% right carotid bulb stenosis, greater than 90% left carotid bulb. Noted on CTA. s/p left carotid endarterectomy 04/04....'
Please clarify the following in your note:
The documented CVA is not associated with the Carotid Stenosis
The documented CVA is associated with the Carotid Stenosis
Other ( please specify)
Use of terms such as suspected, likely, concern for, or probable (associated with a specific diagnosis that is being evaluated, monitored, or treated as if it exists) are acceptable and can be coded in the inpatient setting, when documented at the
time of discharge.
Thank you,
Emilia Amador RN
CDI Specialist
[facility]
Please use your independent medical judgment in providing your response.
== END 2024-04-06 11:59 | disposition home or self-care (01) | DRG 38 ==
LOC: ICU 09:10
PROVIDERS: Nurse Practitioner Acute Care; ADMITTING PHYSICIAN Hospitalist; ATTENDING PHYSICIAN Internal Medicine; CONSULT PHYSICIAN Internal Medicine Critical Care Medicine; CONSULT PHYSICIAN Psychiatry & Neurology Neurology; CONSULT PHYSICIAN Surgery Vascular Surgery; EMERGENCY PHYSICIAN Emergency Medicine; FAMILY PHYSICIAN Student in an Organized Health Care Education/Training Program
PROC: 03CJ0ZZ Extirpation of Matter from Left Common Carotid Artery, Open Approach (ICD-10-PCS; 2024-04-04)
PROC: 03UJ0KZ Supplement Left Common Carotid Artery with Nonautologous Tissue Substitute, Open Approach (ICD-10-PCS; 2024-04-04)
DX: I63.233 Cerebral infarction due to unspecified occlusion or stenosis of bilateral carotid arteries (principal); T81.10XA Postprocedural shock unspecified, initial encounter; R47.01 Aphasia; Z95.1 Presence of aortocoronary bypass graft; Z79.82 Long term (current) use of aspirin; I10 Essential (primary) hypertension; G89.29 Other chronic pain; E78.00 Pure hypercholesterolemia, unspecified; E11.65 Type 2 diabetes mellitus with hyperglycemia; Z79.84 Long term (current) use of oral hypoglycemic drugs; Z68.37 Body mass index [BMI] 37.0-37.9, adult; I25.10 Atherosclerotic heart disease of native coronary artery without angina pectoris; Z79.02 Long term (current) use of antithrombotics/antiplatelets; Z79.899 Other long term (current) drug therapy; Y83.8 Other surgical procedures as the cause of abnormal reaction of the patient, or of later complication, without mention of misadventure at the time of the procedure; D72.829 Elevated white blood cell count, unspecified; E87.5 Hyperkalemia; Z80.3 Family history of malignant neoplasm of breast; E66.09 Other obesity due to excess calories; S91.301A Unspecified open wound, right foot, initial encounter; X58.XXXA Exposure to other specified factors, initial encounter
CPT/HCPCS: 88304; 88311; 35301; 70496; 70498; 70551; 71045; 80048; 80053; 80061; 82962; 83036; 85025; 85027; 85610; 85730; 86850; 86900; 86901; 93005; 93880; 93922; 93925; 95938; 95941; 95955; 99285; Q9967

== ENCOUNTER 2024-04-08 03:37 | Observation (INO) | payer OTHER, SELFPAY ==
[2024-04-07 20:13] VITALS: BP 176/105
[2024-04-07 20:59] VITALS: BP 121/51; BMI 37.0
--- NOTE | 2024-04-07 21:08 | ED.GENMED ---
History of Present Illness
General
Chief Complaint: Skin Problem
Source: patient
Exam Limitations: none
Time Seen by Provider: 04/07/24 20:58
History of Present Illness
History of Present Illness:
See MDM
Past History
Past History
ED Past Medical History: CAD, HTN, Hypercholesterolemia, NIDDM and Other (carotid stenosis)
ED Past Surgical History: Cardiac (CABG March 2023) and Orthopedic (Lumbar surgery many years ago)
Social History
Tobacco: Non-smoker
Drug: None
Living: with family
Employment: Retired
Family History
Family History: Other (Sister with breast cancer)
Phy Exam
Physical Exam
Physical Exam:
See MDM
Course
Orders/Labs/Results
Orders:
Orders
04/07/24 20:58
CT Angio Neck W/Wo Iv Contrast [CT Neck Angio W/wo Iv Contrast] Urgent
Comment:
Reason For Exam: recent L endartectomy. Mild bleeding and pain
04/07/24 20:58
04/07/24 20:58
Vital Signs
Initial and Last Documented VS:
Initial Vital Signs
Temp Pulse Resp BP Pulse Ox
99.1 F 92 19 176/105 98
04/07/24 20:13 04/07/24 20:13 04/07/24 20:13 04/07/24 20:13 04/07/24 20:13
Last Documented Vital Signs
Temp Pulse Resp BP Pulse Ox
99.1 F 87 16 136/71 99
04/07/24 20:13 04/08/24 00:46 04/08/24 00:46 04/08/24 00:46 04/08/24 00:46
MDM/Problems Addressed
Differential Diagnosis Includes:
HPI and MDM Narrative:
69-year-old female presenting for evaluation of bleeding from the surgical site of her left neck. She had recent left endarterectomy yesterday. She called the vascular surgeon overnight due to bleeding in this area. She was sent in for
evaluation. On arrival, she was met by the vascular surgical product sales consultant. He started cleaning the area. She is not actively bleeding. She said she is extremely well-appearing and nontoxic. Per vascular surgery, will obtain CT angiogram to look for
any bleeding from the surgical site
Physical exam
General: Well appearing and non-toxic
HEENT: protecting airway
Neck: Postsurgical changes to left neck. No active bleeding
CV: No evidence of cyanosis
Resp: No accessory muscle use
Abd: Non-distended
Extremities: No deformities
Neuro: alert
Psych: Normal affect
Skin: Intact
Problems Addressed including Acute and Chronic Conditions affecting care:
1. Postoperative bleeding
Acuity: acute
Prognosis: stable
Details: Will obtain CT angiogram to look for any bleeding internally.
Updates
CT negative for extravasation or abscess. Vascular surgery made aware who suggested admission for possible washout
Differential Diagnosis (but not limited to): Postsurgical bleeding, leaking from enterectomy site
Testing considered: Repeat blood work but was just done yesterday
Drug therapy (if applicable): OTC meds, please see d/c instruction regarding Rx drugs
Amount and/or Complexity of Data Reviewed
Clinical info obtained from: Patient
External data reviewed: Recent carotid endarterectomy
Labs I independently reviewed (but not limited to): N/A
Radiology: The CT scan was personally and independently reviewed. In addition, official CT report reviewed.
Pulse Ox: not hypoxic
EKG independently reviewed: N/A
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
Critical Care: N/A
Risk of Complication:
Social Determinants of health: Good social support
Discussed with other providers: Vascular surgery
Escalation of Care includes Admit/Obs: After discussing case with vascular surgery, will admit for possible washout
Occasional wrong word or 'sound a like' substitutions may have occurred due to the inherent limitations of voice recognition software. Read the chart carefully and recognize, using context, where substitutions have occurred.
*Critical Care Note
Total Time (30-74mins, 75-104mins- exclusive of procedures): Not Applicable
ED Attending Note
-
Portions of this chart may have been created with voice recognition software.� Occasional wrong word or��sound alike� substitutions may have occurred due to the inherent limitations of voice recognition software.
Discharge Plan
Departure
Patient Disposition: Admit
Date of Disposition: 04/08/24
Time of Disposition: 01:40
Admit to: Med/Surg
Presentation/result/management discussed w/ accepting MD/DO: vascular surgery
Discharge Problem:
Postoperative haemorrhage
Prescriptions:
No Action
ascorbic acid (vitamin C) [Vitamin C] 500 mg tablet
500 mg PO DAILY
atorvastatin 80 mg tablet
40 mg PO HS
glipizide 5 mg tablet
5 mg PO QPM
lisinopril 10 mg Tablet
5 mg PO DAILY
omega 0-yls-hvb-fish oil [Fish Oil] 1,000 (120-180) mg Capsule
1 cap PO QPM
coQ10 (ubiquinol) 100 mg Capsule
100 mg PO QPM
magnesium oxide 400 mg magnesium Tablet
400 mg PO HS
polyethylene glycol 3350 17 gram Powder In Packet
17 g PO DAILY Qty: 30 0RF
oxycodone 5 mg Tablet
5 mg PO Q4HPRN PRN (Reason: moderate to severe pain) Qty: 15 0RF
Polysporin 500-10,000 unit/gram Ointment In Packet
1 applic topical DAILY Qty: 144 0RF
acetaminophen 325 mg Tablet
650 mg PO Q4HPRN PRN (Reason: mild pain/VARGAS/temp>100.5) Qty: 0 0RF
aspirin [Children's Aspirin] 81 mg Tablet,Chewable
81 mg PO DAILY 30 Days Qty: 30 0RF
clopidogrel 75 mg Tablet
75 mg PO DAILY 30 Days Qty: 30 0RF
metoprolol succinate 25 mg Tablet Extended Release 24 Hr
12.5 mg PO DAILY 30 Days Qty: 30 1RF
Jardiance 10 mg Tablet
10 mg PO DAILY 30 Days Qty: 30 0RF
Referrals:
Quoc Cabrales MD, Resident [Family Provider] -
Interventions
Interventions:
*Risk Screen - Suicide Last Done: 04/07/24 20:13
*General Assessment Last Done: 04/07/24 20:59
*Neglect/Abuse Screening Last Done: 04/07/24 20:13
*ED COVID-19 Vaccine History Last Done: 04/07/24 20:59
ED-Skin Assessment Last Done: 04/07/24 21:09
Discharge Date and Time
Print Language: MOZAMBICAN
[2024-04-07 22:31] VITALS: BP 138/70
[2024-04-08 00:46] VITALS: BP 136/71
--- NOTE | 2024-04-08 02:14 | HPS.HSE ---
Family Physician
-
Family Physician: Quoc Henriquez MD, Resid
Chief Complaint
-
Skin problem
History of Present Illness
Patient is a 69-year-old female with past medical history of hypertension, hypercholesterolemia, CAD, history of CABG, and NIDDM, presents to the emergency department for evaluation of bleeding from the surgical site of her left neck. She had
recent left endarterectomy on 04/04/24. She called the vascular surgeon overnight due to bleeding in this area. She was sent in for evaluation. On arrival, she was met by the vascular surgical technician. He started cleaning the area. She is not
actively bleeding. She said she is extremely well-appearing and nontoxic. Per vascular surgery, will obtain CT angiogram to look for any bleeding from the surgical site. Patient denies any dizziness, headache, nausea/vomiting, or active bleeding
from the surgical site.
In the emergency department: Labs grossly unremarkable. CT Neck Angio w/wo IV contrast showed Postsurgical changes as described related to recent left carotid endarterectomy. Patent left carotid vessels. No extraluminal extravasation of injected
contrast material. No focal collection/hematoma.
Emergency provider, Dr. Schmitz, discussed with Vascular surgery, Dr. Aida Fulton, who accepted the patient to be admitted to vascular service for possible washout of wound.
Medical History
Past Medical History
Past Medical History: Reports CAD, HTN, Hypercholesterolemia and NIDDM
Past Surgical History: Reports Cardiac (CABG, 03/2023) and Orthopedic (Lumbar surgery)
Social History
Tobacco: Non-smoker
Alcohol: None
Drug: None
Living: With Family
Employment: Retired
Family History
Family History: Not pertinent
Allergies / Home Medications
Allergies reflects when Allergies were last updated in [facility] [facility].
Home Medications with original date entered in [facility] [facility]
Allergy/Medication List:
Patient Allergies
Allergy/AdvReac Type Severity Reaction Status Date / Time
No Known Allergies Allergy Verified 04/07/24 20:13
Home Medications
�Medication �Instructions �Recorded
aspirin 81 mg chewable tablet 81 mg PO DAILY Heart 04/24/23
(Children's Aspirin) disease/condition 30 days #30 tabs
clopidogrel 75 mg tablet 75 mg PO DAILY Heart 04/24/23
disease/condition 30 days #30 tabs
empagliflozin 10 mg tablet 10 mg PO DAILY 30 days #30 tabs 04/24/23
(Jardiance)
metoprolol succinate 25 mg 12.5 mg (1/2 x 25 mg) PO DAILY 04/24/23
tablet,extended release 24 hr Heart disease/condition 30 days
#30 tabs
ascorbic acid (vitamin C) 500 mg 500 mg PO DAILY Supplement 04/01/24
tablet (Vitamin C)
atorvastatin 80 mg tablet 40 mg PO HS High cholesterol 04/01/24
coQ10 (ubiquinol) 100 mg capsule 100 mg PO QPM Supplement 04/01/24
glipizide 5 mg tablet 5 mg PO QPM Diabetes 04/01/24
lisinopril 10 mg tablet 5 mg PO DAILY Blood Pressure 04/01/24
magnesium oxide 400 mg PO HS Supplement 04/01/24
omega 5-izb-umg-fish oil 1,000 mg 1 cap PO QPM Supplement 04/01/24
(120 mg-180 mg) capsule (Fish Oil)
acetaminophen 325 mg tablet 650 mg (2 x 325 mg) PO Q4HPRN PRN 04/06/24
mild pain/VARGAS/temp>100.5 #0 tabs
bacitracin zinc 500 unit-polymyxin 1 applic topical DAILY #144 ea 04/06/24
B 10,000 unit/gram top oint packet
(Polysporin)
oxycodone 5 mg tablet 5 mg PO Q4HPRN PRN moderate to 04/06/24
severe pain #15 tabs
polyethylene glycol 3350 17 gram 17 g PO DAILY #30 ea 04/06/24
oral powder packet
Review of Systems
-
A 12 point ROS was completed and negative except as noted: Yes
Constitutional: Reports No Symptoms
EENT: Reports No Symptoms
Respiratory: Reports No Symptoms
Cardiac: Reports No Symptoms
Abdomen/GI: Reports No Symptoms
: Reports No Symptoms
Musculoskeletal: Reports No Symptoms
Skin: Reports Other (bleeding from surgical site on left neck)
Neurological: Reports No Symptoms
Endocrine: Reports No Symptoms
Hematologic/Lymphatic: Reports No Symptoms
Psych: Reports No Symptoms
Physical Exam
Vital Signs
Vital Signs
Temp Pulse Resp BP Pulse Ox
99.1 F 87 16 136/71 99
04/07/24 20:13 04/08/24 00:46 04/08/24 00:46 04/08/24 00:46 04/08/24 00:46
Physical Exam
General: Well Developed and Comfortable
HEENT: Other (post surgical changes to neck, no active bleeding noted)
Respiratory: Clear
Cardiac: S1/S2
GI: Soft and Non Tender
Musculoskeletal: Edema, Right Lower Extremity
Skin: Other (surgical incision c/d/i, no active drainage noted left neck)
Neuro: AO x 3; No Slurred Speech
Psych: Calm
Laboratory Results
-
04/07/24 20:58
04/07/24 20:58
Laboratory Results
Total Bilirubin Cancelled 04/07/24 20:58
AST Cancelled 04/07/24 20:58
ALT Cancelled 04/07/24 20:58
Alkaline Phosphatase Cancelled 04/07/24 20:58
Data Reviewed
-
CT Scan: Report Reviewed by me
Old Records: Reviewed
Impression/Plan
-
IMPRESSION:
Patient is a 69-year-old female with past medical history of hypertension, hypercholesterolemia, CAD, history of CABG, and NIDDM, presents to the emergency department for evaluation of bleeding from the surgical site of her left neck. She had
recent left endarterectomy on 04/04/24.
PLAN:
Postoperative Haemorrhage
-Recent carotid endarterectomy, 04/04/2024
-Admitted to vascular surgery service, Dr. Ashwin Fulton accepted to his service.
-Pt NPO, IV fluids
-Pain medication, antiemetics ordered
-Ordered am labs: CBC, BMP, Coags
Hx of CAD
Hx of Hypertension
Hx of Hypercholesterolemia
-Hold home medications: ASA, Plavix, Lisinopril
-May continue Atorvastatin
Hx of NIDDM
-SS Insulin coverage
-AC/HS accuchecks
-Hold home medications: Glipizide, Jardiance
-Resume diabetic diet as per vascular surgery
DVT Prophylaxis: SCD's
Code status: Full code
[2024-04-08] MEDS: NSS 1000 IV (06:10)
[2024-04-08 06:27] LABS: Hematocrit 40.2 % (37.0-47.0); Hemoglobin 13.9 g/dL (12.0-16.0); Mean Corp Hgb Conc. 34.6 g/dL (33.0-37.0); Mean Corpuscular Hgb 29.9 pg (27.0-31.0); Mean Corpuscular Volume 86.5 fL (81.0-99.0); Mean Platelet Volume 8.8 fL (7.4-10.4); Platelet Count 281 10^3/uL (130-400); Red Blood Cell Count 4.65 10^6/uL (4.20-5.40); Red Cell Dist. Width 13.2 % (11.5-14.5); White Blood Cell Count 6.9 10^3/uL (4.8-10.8)
[2024-04-08 06:38] LABS: INR 0.95; PT 13.2 Sec (11.4-14.6)
[2024-04-08 06:39] LABS: APTT 39.7 Sec (23.4-35.0)
[2024-04-08 06:53] LABS: Blood Urea Nitrogen 23 mg/dl (7-17); Calcium 9.1 mg/dl (8.4-10.2); Carbon Dioxide 27 mmol/L (22-30); Chloride 105 mmol/L (98-107); Estimated Creatinine Clearance 94 ml/min; Glucose 149 mg/dl (70-99); Potassium 4.1 mmol/L (3.5-5.1); Sodium 139 mmol/L (135-145); eGFR > 60.00
--- NOTE | 2024-04-08 07:23 | CON.VAS ---
Addendum entered and electronically signed by Shon Patterson MD 04/08/24 07:33:
Seen and examined in the emergency room with NADEEN Khanna. Agree with findings as noted below. Status post left CEA 4 days ago. Discharged 2 days ago. Had small hematoma postoperatively. Per the patient and her sister she had a couple episodes of
small spotting when they wipe the site. And then last night had increased drainage. Slightly bloody drainage. Not pouring out. No swelling in the neck. No neurologic changes.
On exam/she is awake and alert. She is in no acute distress. Breathing is unlabored. Left neck incision is dry and intact. I do not see any obvious dehiscence currently. There is some crusting of old blood along the incision. The superior
aspect has small focal hematoma that is soft. The entirety of the neck is actually very soft. Neurologically no focal deficits.
CT neck reviewed images. No evidence of pseudoaneurysm. No focal large drainable collection, just postoperative infiltrative changes.
Plan/ Likely drainage of some liquefied hematoma. No signs of active bleeding. No concern for any large expansile hematoma. Neurologically intact. Should be okay for discharge and close follow-up in the office. Will cover with antibiotics in
the case that there is a subtle dehiscence. However I cannot appreciate any grossly on exam.
Original Note:
Consultation
Consultation Request
Performing Provider: Leonardo
Reason for Consultation: Bleeding at recent CEA neck site
Medical History
-
Chief Complaint: Left neck bleeding
History of Present Illness:
69-year-old female presenting to the ER overnight for bleeding at left neck site. Patient is status post left CEA with Dr. Sousa on 04/04/2024. Patient was discharged on 04/06/24. Patient had small nickel sized hematoma at upper pole of neck site
on postop day 1. Remained unchanged on postop day 2 and was discharged that day.
Vascular consult for bleeding at the left neck site. Patient seen in the ER with Dr. Patterson this morning. Left neck site appears unchanged from postop day 2. Neck remains soft, flat, with nickel sized hematoma at upper pole. Site is dry with no
bleeding or oozing. There is small amount of dried/crusted old blood on the upper part of the incision. Patient moves all extremities equally, intact.
Past Medical History
Past Medical History: CAD, HTN, Hypercholesterolemia and NIDDM
Past Surgical History: Other (Left CEA 04/04/2024)
Social History
Living: With Family
Family History
Family History: Reviewed & Not Pertinent
Allergies / Home Medications
Allergy/AdvReac Type Severity Reaction Status Date / Time
No Known Allergies Allergy Verified 04/07/24 20:13
�Medication �Instructions �Recorded �Confirmed �Type
aspirin 81 mg chewable tablet 81 mg PO DAILY Heart 04/24/23 04/08/24 Rx
(Children's Aspirin) disease/condition 30 days #30 tabs
clopidogrel 75 mg tablet 75 mg PO DAILY Heart 04/24/23 04/08/24 Rx
disease/condition 30 days #30 tabs
empagliflozin 10 mg tablet 10 mg PO DAILY 30 days #30 tabs 04/24/23 04/08/24 Rx
(Jardiance)
metoprolol succinate 25 mg 12.5 mg (1/2 x 25 mg) PO DAILY 04/24/23 04/08/24 Rx
tablet,extended release 24 hr Heart disease/condition 30 days
#30 tabs
ascorbic acid (vitamin C) 500 mg 500 mg PO DAILY Supplement 04/01/24 04/08/24 History
tablet (Vitamin C)
atorvastatin 80 mg tablet 40 mg PO HS High cholesterol 04/01/24 04/08/24 History
coQ10 (ubiquinol) 100 mg capsule 100 mg PO QPM Supplement 04/01/24 04/08/24 History
glipizide 5 mg tablet 5 mg PO QPM Diabetes 04/01/24 04/08/24 History
lisinopril 10 mg tablet 5 mg PO DAILY Blood Pressure 04/01/24 04/08/24 History
magnesium oxide 400 mg PO HS Supplement 04/01/24 04/08/24 History
omega 3-kev-wst-fish oil 1,000 mg 1 cap PO QPM Supplement 04/01/24 04/08/24 History
(120 mg-180 mg) capsule (Fish Oil)
acetaminophen 325 mg tablet 650 mg (2 x 325 mg) PO Q4HPRN PRN 04/06/24 04/08/24 Rx
mild pain/VARGAS/temp>100.5 #0 tabs
bacitracin zinc 500 unit-polymyxin 1 applic topical DAILY #144 ea 04/06/24 04/08/24 Rx
B 10,000 unit/gram top oint packet
(Polysporin)
oxycodone 5 mg tablet 5 mg PO Q4HPRN PRN moderate to 04/06/24 04/08/24 Rx
severe pain #15 tabs
polyethylene glycol 3350 17 gram 17 g PO DAILY #30 ea 04/06/24 04/08/24 Rx
oral powder packet
Review of Systems
-
History Source: Patient and Family
All other systems: Negative unless noted
Constitutional: Reports No Symptoms
EENT: Reports No Symptoms
Respiratory: Reports No Symptoms
Cardiac: Reports No Symptoms
Vascular: Denies Leg Pain / Claudication
Abdomen/GI: Reports No Symptoms
Skin: Reports Other (Bleeding at left neck site)
Physical Exam
Vital Signs
Temp Pulse Resp BP Pulse Ox
99.1 F 87 16 136/71 99
04/07/24 20:13 04/08/24 00:46 04/08/24 00:46 04/08/24 00:46 04/08/24 00:46
Lab Results
04/08/24 06:19
04/08/24 06:19
Physical Exam
General: No Apparent Distress
HEENT: Normocephalic and Atraumatic
Respiratory: Non Labored Respirations
Cardiac: Negative JVD
GI: Soft and Non Tender
Musculoskeletal: No Clubbing, No Cyanosis and No Edema
Skin: Other (Left neck site as described above)
Neuro: Awake, Alert, Oriented and Nonfocal/Grossly Intact
Psych: Calm
Assessment / Plan
-
69-year-old female postop day [address] Sousa, admitted overnight for bleeding to left neck site. Resolved.
CT negative for extravasation
Plan:
-DC home with short course antibiotics
-Follow-up in office next week
-Patient educated to call with any changes or concerns
--- NOTE | 2024-04-08 07:35 | W.DS.TRANS ---
DC Summary - [employer]
-
Discharge Instructions:
Discharge Diagnosis/Procedures Status post left CEA with bleeding�resolved
Diet As tolerated
Activity No strenuous activity
Driving Restrictions Not until seen by your Dr
Bathing Restrictions OK to Shower
Instructions:
Stand-Alone Forms:
Changes to Home Medications: Yes
Discharge Medications:
DC Medications w/original date entered in [employer]
aspirin 81 mg chewable tablet (Children's Aspirin) 81 mg PO DAILY Heart disease/condition 30 days #30 tabs 04/24/23
clopidogrel 75 mg tablet 75 mg PO DAILY Heart disease/condition 30 days #30 tabs 04/24/23
empagliflozin 10 mg tablet (Jardiance) 10 mg PO DAILY 30 days #30 tabs 04/24/23
metoprolol succinate 25 mg tablet,extended release 24 hr 12.5 mg (1/2 x 25 mg) PO DAILY Heart disease/condition 30 days #30 tabs 04/24/23
ascorbic acid (vitamin C) 500 mg tablet (Vitamin C) 500 mg PO DAILY Supplement 04/01/24
atorvastatin 80 mg tablet 40 mg PO HS High cholesterol 04/01/24
coQ10 (ubiquinol) 100 mg capsule 100 mg PO QPM Supplement 04/01/24
glipizide 5 mg tablet 5 mg PO QPM Diabetes 04/01/24
lisinopril 10 mg tablet 5 mg PO DAILY Blood Pressure 04/01/24
magnesium oxide 400 mg PO HS Supplement 04/01/24
omega 9-bhs-uly-fish oil 1,000 mg (120 mg-180 mg) capsule (Fish Oil) 1 cap PO QPM Supplement 04/01/24
acetaminophen 325 mg tablet 650 mg (2 x 325 mg) PO Q4HPRN PRN mild pain/VARGAS/temp>100.5 #0 tabs 04/06/24
bacitracin zinc 500 unit-polymyxin B 10,000 unit/gram top oint packet (Polysporin) 1 applic topical DAILY #144 ea 04/06/24
oxycodone 5 mg tablet 5 mg PO Q4HPRN PRN moderate to severe pain #15 tabs 04/06/24
polyethylene glycol 3350 17 gram oral powder packet 17 g PO DAILY #30 ea 04/06/24
amoxicillin 500 mg-potassium clavulanate 125 mg tablet 1 tab PO Q12 7 days #14 tabs 04/08/24
Home Medication Changes
Added Augmentin for antibiotic coverage
Pending Results: No
[2024-04-08 08:44] VITALS: BP 132/78
== END 2024-04-08 08:45 | disposition home or self-care (01) ==
LOC: ED 03:37
PROVIDERS: Nurse Practitioner Family; ADMITTING PHYSICIAN Surgery Vascular Surgery; EMERGENCY PHYSICIAN Student in an Organized Health Care Education/Training Program; FAMILY PHYSICIAN Student in an Organized Health Care Education/Training Program; OTHER PHYSICIAN Surgery Vascular Surgery
DX: L76.22 Postprocedural hemorrhage of skin and subcutaneous tissue following other procedure (principal); Y83.8 Other surgical procedures as the cause of abnormal reaction of the patient, or of later complication, without mention of misadventure at the time of the procedure; Y92.9 Unspecified place or not applicable; I25.10 Atherosclerotic heart disease of native coronary artery without angina pectoris; I10 Essential (primary) hypertension; E78.00 Pure hypercholesterolemia, unspecified; E11.9 Type 2 diabetes mellitus without complications; Z95.1 Presence of aortocoronary bypass graft; Z80.3 Family history of malignant neoplasm of breast; Z79.84 Long term (current) use of oral hypoglycemic drugs; Z79.02 Long term (current) use of antithrombotics/antiplatelets; Z79.82 Long term (current) use of aspirin; Z79.891 Long term (current) use of opiate analgesic
CPT/HCPCS: 70498; 80048; 85027; 85610; 85730; 99285; Q9967

== ENCOUNTER 2024-05-03 05:53 | Day surgery (SDC) | payer OTHER, SELFPAY ==
[2024-05-03] VITALS (22 sets, daily range): BP systolic 110–153; BP diastolic 49–88; BMI 36.4
[2024-05-03 06:59] LABS: Hematocrit 45.3 % (37.0-47.0); Hemoglobin 15.3 g/dL (12.0-16.0); Mean Corp Hgb Conc. 33.8 g/dL (33.0-37.0); Mean Corpuscular Hgb 29.6 pg (27.0-31.0); Mean Corpuscular Volume 87.6 fL (81.0-99.0); Mean Platelet Volume 8.9 fL (7.4-10.4); Platelet Count 305 10^3/uL (130-400); Red Blood Cell Count 5.17 10^6/uL (4.20-5.40); Red Cell Dist. Width 13.2 % (11.5-14.5); White Blood Cell Count 6.8 10^3/uL (4.8-10.8)
[2024-05-03 06:59] LABS: Glucose - Point of Care 124 mg/dl (70-99)
[2024-05-03] MEDS: NSS 500 IV (07:31)
--- NOTE | 2024-05-03 09:39 | W.SUR.POST ---
Surgical Immediate Post Op
Note
Pre Op Diagnosis: PAD
Post Op Diagnosis: PAD
Procedure Performed: RLE angio + shockwave + TRANSFORMER MECHANIC + DCB + stent via L groin access; LLE diagnostic angio
Primary Surgeon: Diego Sousa
Secondary Surgeons: Joey Neal
Anesthesia: see anesthesia flowsheet
Estimated Blood Loss: 50cc
Fluids: see anesthesia flowsheet
Drains/Shunts: none
Specimens/Cultures: none
Doppler/Duplex/Angio (Y/N): y
Complications: none
Operative Findings: RLE diagnostic angio via L groin access. L SFA stenosis. Extensive collateralization of tibial vessels; TP trunk occluded with reconstitution of peroneal. Rewired peroneal. Javelin to SFA lesion, TP trunk, peroneal. TRANSFORMER MECHANIC of
peroneal. Absorbable stent proximal peroneal. DCB of distal SFA/popliteal stenosis. Improved RLE bloodflow on completion with R DP/PT biphasic on doppler. LLE angio on way out with occlusive disease at level of distal SFA with reconstitution of
peroneal midway through calf, likely not amenable to endovascular intervention. Sheath to be pulled in PACU.
[2024-05-03 09:56] LABS: Glucose - Point of Care 126 mg/dl (70-99)
--- NOTE | 2024-05-03 10:30 | OR.RPT ---
Operative Report
Operative Report
Date of Operation: 05/03/2024
Pre Op Diagnosis:
1. Chronic limb threatening ischemia, bilateral lower extremities
2. Bilateral ischemic rest pain
3. Bilateral nonhealing foot wounds
4. Diabetes with peripheral arterial disease
Post Op Diagnosis:
1. Chronic limb threatening ischemia, bilateral lower extremities
2. Bilateral ischemic rest pain
3. Bilateral nonhealing foot wounds
4. Diabetes with peripheral arterial disease
Procedure:
1.) Intravascular lithotripsy to right superficial femoral artery, popliteal artery, tibioperoneal trunk and peroneal artery using Shockwave Javelin catheter
2.) Bioabsorbable drug-eluting scaffold placement to right tibioperoneal trunk (3 mm x 38 mm Partida Esprit)
3.) Balloon angioplasty of right tibioperoneal trunk and peroneal artery (3 mm x 220 mm)
4.) Drug-coated balloon angioplasty of right superficial femoral artery and popliteal artery (5 mm x 200 mm Lutonix DCB)
5.) Diagnostic aortobiiliac arteriogram
6.) Diagnostic BILATERAL lower extremity arteriograms
7.) Ultrasound-guided percutaneous access to the left common femoral artery
Surgeon: Diego Sousa III, MD
Final Finisher: Joey Neal MD, PGY4
Anesthesia: Sedation with local
Fluoroscopy:
41.3 min
332 mGy
95.02 Gy.cm2
Complications: None
Estimated Blood Loss: 50 cc
History and Indications for Procedure: 69-year-old female with chronic limb threatening ischemia of the bilateral lower extremities manifested by ischemic rest pain in the feet and bilateral nonhealing foot wounds.
Procedure in Detail: Wilder Garrison was correctly identified and placed supine on the operating table. After adequate induction of anesthesia the bilateral groins were prepped and draped in the usual sterile fashion. A timeout was performed with the
nursing and anesthesia staff confirming the patient's identity as well as the nature and laterality of the procedure.
The left common femoral artery was identified under ultrasound guidance. The artery was patent. The superior and inferior aspects of the femoral head were identified with radiographic guidance and marked at the skin level. The proposed puncture site
was infiltrated with local anesthesia. Under ultrasound guidance we accessed the left common femoral artery with a micropuncture needle and upsized to a 5 Fr sheath over a ZIRX wire. The wire and a Shepherds hook flush catheter were advanced into
the distal abdominal aorta and a diagnostic aorto-biiliac arteriogram was performed:
AORTO-ILIAC ARTERIOGRAM:
Aorta: Patent with no significant stenosis identified
Right common iliac artery: Patent with no significant stenosis identified
Right external iliac artery: Patent with no significant stenosis identified
Left common iliac artery: Patent with no significant stenosis identified
Left external iliac artery: Patent with no significant stenosis identified
Under roadmap guidance using a Glidewire and the Shepherds hook catheter we selected the right common iliac artery and then the external iliac artery. A catheter was tracked up and over the aortic bifurcation and placed in the distal external iliac
artery. A diagnostic right lower extremity arteriogram was then performed which demonstrated the following:
RIGHT LOWER EXTREMITY:
Common femoral artery: Patent with no significant stenosis identified
Profunda femoral artery: Patent with no significant stenosis identified
Superficial femoral artery: Patent proximal and mid segment with no stenosis identified. Distally there is segmental high-grade stenosis. Calcified
Popliteal artery: Patent. Diffusely diseased with areas of high-grade stenosis throughout
Anterior tibial artery: Occluded
Tibioperoneal trunk: Occluded
Peroneal artery: Occluded proximally but reconstitutes in the mid calf
Posterior tibial artery: Occluded
ENDOVASCULAR INTERVENTION: Systemic heparin was administered. Exchanged out for a 6 Fr 45 cm sheath over a StorEnergy wire. Selected the superficial femoral artery under roadmap guidance with Quickcross catheter and glidewire. The distal SFA stenosis was
crossed with a Quickcross and Glidewire. The catheter and wire were advanced to the below-knee popliteal artery. Using a 0.014 Mongo wire and 0.014 Quickcross catheter I was able to cross the tibioperoneal trunk and peroneal artery occlusion. We
had difficulty advancing the Quickcross catheter through the occluded tibial segment. Due to the heavily calcified nature of the arterial disease and in an effort to successfully cross the lesion, modify the calcium and achieve luminal gain with
endovascular intervention I elected to proceed with intravascular lithotripsy with a Shockwave Javelin catheter. The Javelin catheter was brought into position under radiographic guidance over the 0.014 wire. The cathter was advanced through the
superficial femoral artery, popliteal artery, tibioperoneal trunk and peroneal artery while simultaneously delivering lithotripsy pulses. 120 pulses were delivered. Subsequent arteriogram demonstrated significant luminal gain across the treated
segment. I then followed this with a 3 mm x 220 mm angioplasty balloon which was positioned in the peroneal artery and tibioperoneal trunk. The balloon was inflated to nominal pressure and held in place for 3-minute inflation. Subsequent
arteriogram demonstrated significant improvement with inline flow through the tibioperoneal trunk and peroneal artery. There was a residual proximal stenosis in the tibioperoneal trunk. This was treated with a 3 mm x 38 mm Partida Esprit
bioabsorbable drug-eluting scaffold. This was deployed in the desired location under roadmap guidance. The scaffold was then postdilated with a 3 mm noncompliant balloon.
I then focused my attention on the superficial femoral artery and popliteal artery disease. A 5 mm x 200 mm drug-coated balloon was positioned in the desired location across the length of the SFA/pop disease. The balloon was inflated to nominal
pressure and held in place for 3 minutes. The balloon was then slowly deflated and removed over the wire. Subsequent arteriogram demonstrated an excellent technical result with a widely patent superficial femoral artery and popliteal artery, brisk
flow and no significant residual stenosis identified.
On subsequent imaging there were some areas of spasm and residual stenosis in the peroneal artery. I then brought back into position the long 3 mm angioplasty balloon and placed this across the length of the peroneal artery and tibioperoneal trunk.
The balloon was inflated to nominal pressure slowly and held in place for 4-minute inflation. The balloon was then slowly deflated and removed over the wire.
COMPLETION ARTERIOGRAM: Patent superficial femoral artery and popliteal artery with brisk flow and no significant residual stenosis identified. Patent tibioperoneal trunk and peroneal artery with significant improvement compared to pretreatment.
Reconstituted posterior tibial artery and dorsalis pedis artery at the ankle via peroneal artery collaterals. Flow into the foot significantly improved compared to pretreatment.
The sheath tip was pulled back into the left external iliac artery. A runoff arteriogram of the left lower extremity was performed which demonstrated the following:
LEFT LOWER EXTREMITY:
Common femoral artery: Patent with no significant stenosis identified
Profunda femoral artery: Patent with no significant stenosis identified
Superficial femoral artery: Patent proximally. High-grade stenosis distally.
Popliteal artery: Above-knee popliteal artery with high-grade stenoses. Occluded behind the knee and below the knee.
Anterior tibial artery: Occluded
Tibioperoneal trunk: Occluded
Peroneal artery: Occluded proximally. Reconstitutes in the mid calf
Posterior tibial artery: Occluded proximally. Reconstitutes at the ankle
Satisfied with this result we concluded the procedure. Protamine was administered. The sheath was secured in place with the plan to pull at the recovery area. The patient tolerated the procedure well and was taken to the recovery area in stable
condition.
Attestation: I was present and responsible for the entire procedure.
Signed:
Diego Sousa III, MD
[facility] [address] [facility]
[phone] ([phone])
[2024-05-03 12:19] LABS: Glucose - Point of Care 129 mg/dl (70-99)
--- NOTE | 2024-05-03 14:30 | PTCARENOTE ---
1300: US tech at bedside for mapping study. Pt tolerating all well.
[2024-05-03 15:07] LABS: Glucose - Point of Care 173 mg/dl (70-99)
== END 2024-05-03 16:20 | disposition home or self-care (01) ==
LOC: CATH 05:53
PROVIDERS: ATTENDING PHYSICIAN Surgery Vascular Surgery; OTHER PHYSICIAN Internal Medicine Cardiovascular Disease
DX: I70.223 Atherosclerosis of native arteries of extremities with rest pain, bilateral legs (principal); E11.51 Type 2 diabetes mellitus with diabetic peripheral angiopathy without gangrene; I10 Essential (primary) hypertension; I25.2 Old myocardial infarction; I25.10 Atherosclerotic heart disease of native coronary artery without angina pectoris; Z79.82 Long term (current) use of aspirin; Z79.02 Long term (current) use of antithrombotics/antiplatelets; Z79.84 Long term (current) use of oral hypoglycemic drugs
CPT/HCPCS: C9764; C9772; 75625; 75716; 82962; 85027; 93970; C1725; C1769; C1887; C1894; C2623; C9773; Q9967

== ENCOUNTER 2024-05-04 20:43 | Emergency (ER) | payer OTHER, SELFPAY ==
[2024-05-04 20:48] VITALS: BP 178/100
[2024-05-04 20:49] VITALS: BP 178/100
[2024-05-04 21:00] VITALS: BP 145/119
[2024-05-04 21:03] LABS: % Basophils 0.7 % (0-2); % Eosinophils 2.5 % (0-6); % Immature Granulocytes 0.2 % (0-0.5); % Lymphocytes 40.6 % (20.5-51.1); % Monocytes 6.6 % (1.7-9.3); % Neutrophils 49.4 % (42.2-75.2); Absolute Basophils 0.1 10^3/uL (0-0.2); Absolute Eosinophils 0.2 10^3/uL (0-0.7); Absolute Lymphocytes 3.5 10^3/uL (1.2-3.4); Absolute Monocytes 0.6 10^3/uL (0.1-0.6); Absolute Neutrophils 4.2 10^3/uL (1.4-6.5); Hematocrit 44.1 % (37.0-47.0); Hemoglobin 14.7 g/dL (12.0-16.0); Mean Corp Hgb Conc. 33.3 g/dL (33.0-37.0); Mean Corpuscular Hgb 29.3 pg (27.0-31.0); Mean Platelet Volume 8.9 fL (7.4-10.4); Nucleated Red Blood Cells % 0 %; Platelet Count 295 10^3/uL (130-400); Red Blood Cell Count 5.01 10^6/uL (4.20-5.40); Red Cell Dist. Width 13.5 % (11.5-14.5); White Blood Cell Count 8.5 10^3/uL (4.8-10.8)
[2024-05-04] MEDS: ZESTRIL 10 MG PO (21:03)
[2024-05-04] MEDS: TRANDATE 10 MG IV (21:03)
[2024-05-04] MEDS: LIPITOR 80 MG PO (21:03)
[2024-05-04] MEDS: LOW STRENGTH ASPIRIN 81 MG PO (21:03)
[2024-05-04 21:23] LABS: ALT (SGPT) 31 U/L (0-35); AST (SGOT) 29 U/L (14-36); Albumin 4.5 g/dl (3.5-5.0); Alkaline Phosphatase 62 U/L (38-126); Blood Urea Nitrogen 25 mg/dl (7-17); Calcium 9.8 mg/dl (8.4-10.2); Carbon Dioxide 26 mmol/L (22-30); Chloride 101 mmol/L (98-107); Glucose 178 mg/dl (70-99); Potassium 4.6 mmol/L (3.5-5.1); Sodium 136 mmol/L (135-145); Total Bilirubin 0.6 mg/dl (0.2-1.3); Total Protein 7.1 g/dl (6.3-8.2); eGFR > 60.00
[2024-05-04 21:30] VITALS: BP 133/59
--- NOTE | 2024-05-04 21:48 | ED.GENMED ---
History of Present Illness
General
Chief Complaint: Blood Pressure Problem
Time Seen by Provider: 05/04/24 20:46
History of Present Illness
History of Present Illness:
69-year-old female with history of peripheral arterial disease, stroke, hypertension, hyperlipidemia, iix-ginzegk-uhukuyyjk diabetes, carotid stenosis status post L CEA and coronary artery disease status post CABG x 5 presents emergency department
for evaluation of elevated blood pressure as well as a left-sided visual abnormality. She notes that she was having increased pain to her right lower leg, she is 1 day status post right lower extremity arteriogram with lithotripsy to the right
SFA/popliteal artery/tibioperoneal trunk/peroneal artery in addition to bioabsorbable stent placement performed at this hospital by Dr. Sousa. She states her right leg has not been painful but on occasion she will have 'shockwaves' of pain to the
right heel. Abruptly approximately 1 hour prior to arrival she noted a 'black mesh' covering the vision of the left eye however could see around this anomaly, the anomaly seem to change shapes frequently but did not obscure her vision. At this
time she describes the anomaly as 'a large tulip'. She has no headache, speech problems, extremity paresthesias, chest pain, or shortness of breath.
Past History
Past History
ED Past Medical History: CAD, HTN, Hypercholesterolemia, NIDDM and Other (carotid stenosis)
ED Past Surgical History: Cardiac (CABG March 2023) and Orthopedic (Lumbar surgery many years ago)
Social History
Tobacco: Non-smoker
Drug: None
Living: with family
Employment: Retired
Family History
Family History: Other (Sister with breast cancer)
Review of Systems
Review of Systems
Allergies reviewed?: Yes
All Other Systems: ROS reviewed and negative except as documented in HPI and ROS
Phy Exam
Physical Exam
Physical Exam:
GEN: Well appearing, NAD, WDWN
HEENT: Oral mucosa moist, no scleral icterus, no nasal congestion, pupils equal round reactive to light, normal extraocular motions
Cardiac: Regular rate
Lung: No respiratory distress, no tachypnea
MSK: No gross deformity or injuries
Skin: Good color, no pallor or jaundice, no rashes
Neuro: AO x3; CN II-XII grossly intact. BUE strength 5/5 in all richardson, sensation intact and symmetric. BLE strength 5/5 in all richardson, sensation intact and symmetric, visual richardson intact by 4 and symmetric bilaterally
Psych: Calm, cooperative
Course
Orders/Labs/Results
Orders:
Orders
05/04/24 20:50
Electrocardiogram (*1) Urgent
Reason for Study: Other
Other Reason for Exam: high BP
05/04/24 20:51
EKG- Treatment ONCE
05/04/24 20:56
CT Head W/o Iv Contrast Urgent
Comment:
Reason For Exam: L visual loss
Aspirin Chewable [Low Strength Aspirin] 81 mg PO NOW STA
Atorvastatin [Lipitor] 80 mg PO NOW STA
Labetalol HCl [Trandate] 10 mg IV NOW STA
Lisinopril [Zestril] 10 mg PO NOW STA
05/04/24 20:58
Complete Blood Count/With Diff Urgent
Comprehensive Metabolic Panel Urgent
Abnormal Lab Results
05/04/24
20:58
Absolute Lymphs (auto) 3.5 H 10^3/uL
(1.2-3.4)
BUN 25 H mg/dl
(7-17)
Glucose 178 H mg/dl
(70-99)
05/04/24 20:58
05/04/24 20:58
Vital Signs
Initial and Last Documented VS:
Initial Vital Signs
BP
178/100
05/04/24 20:48
Last Documented Vital Signs
Temp Pulse Resp BP Pulse Ox
98.2 F 83 21 135/77 98
05/04/24 20:49 03/12/25 22:30 05/04/24 22:30 05/04/24 22:30 05/04/24 22:30
MDM/Problems Addressed
MDM/Problems Addressed:
I suspect the patient's transient visual disturbance was secondary to hypertensive encephalopathy, she is status post recent left carotid endarterectomy and has no vision loss to suggest recurrent carotid occlusion. Blood pressure was treated with
IV labetalol and her scheduled nighttime meds with gradual improvement, her visual anomaly essentially resolved at time of discharge. Encourage close primary care or cardiology follow-up to discuss further blood pressure control should symptoms
recur
*Critical Care Note
Total Time (30-74mins, 75-104mins- exclusive of procedures): Not Applicable
ED Attending Note
-
Portions of this chart may have been created with voice recognition software.� Occasional wrong word or��sound alike� substitutions may have occurred due to the inherent limitations of voice recognition software.
Discharge Plan
Departure
Patient Disposition: Home (Routine Discharge)
Date of Disposition: 05/04/24
Time of Disposition: 22:31
Patient with high blood pressure during this ER visit?: Yes
Discharge Problem:
Hypertensive crisis
Instructions: High Blood Pressure (DC)
Prescriptions:
No Action
ascorbic acid (vitamin C) [Vitamin C] 500 mg tablet
500 mg PO DAILY
atorvastatin 80 mg tablet
80 mg PO HS
glipizide 5 mg tablet
5 mg PO QPM
lisinopril 10 mg Tablet
10 mg PO DAILY
omega 4-hqx-gad-fish oil [Fish Oil] 1,000 (120-180) mg Capsule
1 cap PO QPM
coQ10 (ubiquinol) 100 mg Capsule
100 mg PO QPM
magnesium oxide 400 mg magnesium Tablet
400 mg PO HS
polyethylene glycol 3350 17 gram Powder In Packet
17 g PO DAILY Qty: 30 0RF
oxycodone 5 mg Tablet
5 mg PO Q4HPRN PRN (Reason: moderate to severe pain) Qty: 15 0RF
acetaminophen 325 mg Tablet
650 mg PO Q4HPRN PRN (Reason: mild pain/VARGAS/temp>100.5) Qty: 0 0RF
metoprolol succinate 25 mg tablet extended release 24 hr
12.5 mg PO BID
Polysporin 500-10,000 unit/gram ointment in packet
1 applic topical DAILY
aspirin [Children's Aspirin] 81 mg Tablet,Chewable
81 mg PO DAILY 30 Days Qty: 30 0RF
clopidogrel 75 mg Tablet
75 mg PO DAILY 30 Days Qty: 30 0RF
Jardiance 10 mg Tablet
10 mg PO DAILY 30 Days Qty: 30 0RF
Referrals:
Ashwini Palomares DO [Family Provider] -
Activity Restrictions/Additional Instructions:
Check your blood pressure daily
Follow up with your primary doctor if your blood pressure remains elevated
Interventions
Interventions:
*Risk Screen - Suicide Last Done: 05/04/24 20:50
*General Assessment Last Done: 05/04/24 20:50
*Neglect/Abuse Screening Last Done: 05/04/24 20:50
*ED- Fall Risk Assessment Last Done: 05/04/24 20:50
*ED COVID-19 Vaccine History Last Done: 05/04/24 20:50
*Nursing Disposition Last Done: 05/04/24 22:46
ED- Cardiac Assessment Last Done: 05/04/24 21:30
ED- Neurological Assessment Last Done: 05/04/24 21:30
ED- Pulmonary Assessment Last Done: 05/04/24 21:30
Discharge Date and Time
Discharge Date/Time: 05/04/24 22:46
Print Language: NEPALI
[2024-05-04 22:06] VITALS: BP 131/69
[2024-05-04 22:30] VITALS: BP 135/77
== END 2024-05-04 22:46 | disposition home or self-care (01) ==
LOC: EMR 20:43
PROVIDERS: Physician Assistant; EMERGENCY PHYSICIAN Emergency Medicine; FAMILY PHYSICIAN Family Medicine; REFERRING PHYSICIAN Surgery Vascular Surgery
DX: I16.9 Hypertensive crisis, unspecified (principal); I10 Essential (primary) hypertension; E78.00 Pure hypercholesterolemia, unspecified; E11.51 Type 2 diabetes mellitus with diabetic peripheral angiopathy without gangrene; I25.10 Atherosclerotic heart disease of native coronary artery without angina pectoris; Z80.3 Family history of malignant neoplasm of breast; Z86.73 Personal history of transient ischemic attack (TIA), and cerebral infarction without residual deficits; Z95.1 Presence of aortocoronary bypass graft
CPT/HCPCS: 99284; 96374; 70450; 80053; 85025; 93005

== ENCOUNTER → 2024-05-05 09:53 | Outpatient (REF) | payer OTHER, SELFPAY | LOC: RAD 09:53 | PROVIDERS: ATTENDING PHYSICIAN Surgery Vascular Surgery; FAMILY PHYSICIAN Student in an Organized Health Care Education/Training Program | DX: I65.23 Occlusion and stenosis of bilateral carotid arteries (principal); I73.9 Peripheral vascular disease, unspecified | CPT/HCPCS: 93880; 93922; 93925 ==

== ENCOUNTER → 2024-05-17 07:49 | Outpatient (REF) | payer OTHER, SELFPAY | LOC: WOUND 07:49 | PROVIDERS: ATTENDING PHYSICIAN Surgery; FAMILY PHYSICIAN Student in an Organized Health Care Education/Training Program | DX: I70.235 Atherosclerosis of native arteries of right leg with ulceration of other part of foot (principal); L97.512 Non-pressure chronic ulcer of other part of right foot with fat layer exposed; E11.9 Type 2 diabetes mellitus without complications; I65.23 Occlusion and stenosis of bilateral carotid arteries; I70.209 Unspecified atherosclerosis of native arteries of extremities, unspecified extremity; I16.1 Hypertensive emergency; I10 Essential (primary) hypertension; Z98.62 Peripheral vascular angioplasty status; Z95.1 Presence of aortocoronary bypass graft | CPT/HCPCS: 73630; 99204 ==

== ENCOUNTER → 2024-05-26 12:57 | Outpatient (REF) | payer OTHER, SELFPAY | LOC: WOUND 12:57 | PROVIDERS: ATTENDING PHYSICIAN Surgery | DX: I70.235 Atherosclerosis of native arteries of right leg with ulceration of other part of foot (principal); L97.512 Non-pressure chronic ulcer of other part of right foot with fat layer exposed; I73.9 Peripheral vascular disease, unspecified; E11.9 Type 2 diabetes mellitus without complications; I65.23 Occlusion and stenosis of bilateral carotid arteries; I70.209 Unspecified atherosclerosis of native arteries of extremities, unspecified extremity; I16.1 Hypertensive emergency; I10 Essential (primary) hypertension; Z98.62 Peripheral vascular angioplasty status; Z95.1 Presence of aortocoronary bypass graft | CPT/HCPCS: 11042 ==

== ENCOUNTER → 2024-06-09 09:55 | Outpatient (REF) | payer OTHER, SELFPAY | LOC: WOUND 09:55 | PROVIDERS: ATTENDING PHYSICIAN Surgery | DX: I70.235 Atherosclerosis of native arteries of right leg with ulceration of other part of foot (principal); L97.512 Non-pressure chronic ulcer of other part of right foot with fat layer exposed; I73.9 Peripheral vascular disease, unspecified; E11.9 Type 2 diabetes mellitus without complications; I65.23 Occlusion and stenosis of bilateral carotid arteries; Z95.1 Presence of aortocoronary bypass graft; I70.209 Unspecified atherosclerosis of native arteries of extremities, unspecified extremity | CPT/HCPCS: 99212 ==

== ENCOUNTER → 2024-07-25 12:13 | Outpatient (REF) | payer OTHER, SELFPAY | LOC: RAD 12:13 | PROVIDERS: ATTENDING PHYSICIAN Internal Medicine Cardiovascular Disease | DX: Z95.1 Presence of aortocoronary bypass graft (principal); I65.23 Occlusion and stenosis of bilateral carotid arteries | CPT/HCPCS: 93880 ==

== ENCOUNTER → 2024-08-01 07:03 | Outpatient (REF) | payer OTHER, SELFPAY ==
[2024-08-01 08:38] LABS: Blood Urea Nitrogen 25 mg/dl (7-17); Calcium 9.9 mg/dl (8.4-10.2); Carbon Dioxide 24 mmol/L (22-30); Chloride 109 mmol/L (98-107); Glucose 78 mg/dl (70-99); HDL Cholesterol 41 mg/dl; LDL Cholesterol, Calculated 64 mg/dl; Potassium 5.1 mmol/L (3.5-5.1); Sodium 142 mmol/L (135-145); Total Cholesterol 154 mg/dl (50-199); Triglyceride 247 mg/dl (10-149); Very Low Density Lipoprotein 49 mg/dl (0-30); eGFR > 60.00
--- NOTE | 2024-08-01 09:58 | CARDSERVLU ---
Echocardiogram with Lumason completed after protocol screening completed. Allergies verified.
Patent IV site: _RT wrist___
IV site flushed with 0.9% NaCl pre and post administration.
Diluted bolus method utilized to enhance visualization of ventricular eason.
Total volume given: ___3.0_ mL
Patient tolerated all procedures well without complications.
#22 sussy placed Left wrist. Lumason given. INT d/c'd. pressure held. no bleeding noted
[2024-08-01 10:07] LABS: Glycohemoglobin (HgbA1c) 6.4 % (4.0-5.6)
== END ==
LOC: RCS 07:03
PROVIDERS: ATTENDING PHYSICIAN Internal Medicine Cardiovascular Disease; FAMILY PHYSICIAN Student in an Organized Health Care Education/Training Program
DX: Z95.1 Presence of aortocoronary bypass graft (principal); E11.9 Type 2 diabetes mellitus without complications; E78.5 Hyperlipidemia, unspecified
CPT/HCPCS: 36415; 80048; 80061; 83036; 93306; Q9950

== ENCOUNTER → 2024-08-23 12:03 | Outpatient (REF) | payer OTHER, SELFPAY | LOC: RAD 12:03 | PROVIDERS: ATTENDING PHYSICIAN Surgery Vascular Surgery | DX: I73.9 Peripheral vascular disease, unspecified (principal) | CPT/HCPCS: 93922; 93925 ==

== ENCOUNTER 2024-11-07 09:25 | Emergency (ER) | payer OTHER, SELFPAY ==
[2024-11-07 09:30] VITALS: BP 162/87
--- NOTE | 2024-11-07 11:05 | EDRN ---
This RN assumed care of pt at this time.
--- NOTE | 2024-11-07 11:21 | EDRN ---
Nikki Zuñiga NP in room w/ pt.
--- NOTE | 2024-11-07 11:30 | ED.GENMED ---
History of Present Illness
General
Chief Complaint: Skin Problem
Source: patient and family
Exam Limitations: none
Time Seen by Provider: 11/07/24 10:49
Nursing documentation reviewed up to this point in time: agreed with
History of Present Illness
History of Present Illness:
Patient is a 69-year-old female with past medical history of prediabetes, CAD hypertension hyperlipidemia, CABG angioplasty of right leg who presents to the ER complaining of rash under bilateral breasts for 1 week which is getting worse.
It started out the right breast and now spread to bilateral breasts. She did use a diaper rash cream initially which seemed to improve symptoms however symptoms worsened again. She denies any fever chills or illness.
Patient denies any fever chills
Past History
Past History
ED Past Medical History: CAD, HTN, Hypercholesterolemia, NIDDM and Other (carotid stenosis)
ED Past Surgical History: Cardiac (CABG March 2023) and Orthopedic (Lumbar surgery many years ago)
Social History
Tobacco: Non-smoker
Drug: None
Living: with family
Employment: Retired
Family History
Family History: Other (Sister with breast cancer)
Phy Exam
General Physical Exam
General Presentation: no apparent distress
General age: appears stated age
General Skin: warm and dry
General Habitus: elderly
General Mental: alert
General Hydration: appears well hydrated
Neurological Exam
Neurological Exam: alert and oriented x3
Musculoskeletal Exam
Musculoskeletal Exam: full ROM
Skin Exam
Skin Exam: normal color, warm/dry and other (Beefy red scattered rash under bilateral breasts minimal surrounding redness as well)
Psychiatric Exam
Psychiatric Exam: normal mood/affect
Course
Vital Signs
Initial and Last Documented VS:
Initial Vital Signs
Temp Pulse Resp BP Pulse Ox
97.6 F 70 16 162/87 97
11/07/24 09:30 11/07/24 09:30 11/07/24 09:30 11/07/24 09:30 11/07/24 09:30
Last Documented Vital Signs
Temp Pulse Resp BP Pulse Ox
97.6 F 63 16 127/57 96
11/07/24 09:30 11/07/24 11:38 11/07/24 11:38 11/07/24 11:38 11/07/24 11:38
MDM/Problems Addressed
Differential Diagnosis Includes:
Not limited to fungal rash, cellulitis
MDM/Problems Addressed:
Exam consistent with fungal rash under bilateral breast however with surrounding erythema will treat with antifungal cream however will also cover for possible superimposed infection with oral Keflex. Discussed prompt follow-up with PCP. She is in
no acute distress is afebrile well-appearing.
*Pulse Oximetry
SaO2: 97
Oxygen Mode of Delivery: Room air
Patient hypoxic: no
*Critical Care Note
Total Time (30-74mins, 75-104mins- exclusive of procedures): Not Applicable
ED Attending Note
-
Portions of this chart may have been created with voice recognition software.� Occasional wrong word or��sound alike� substitutions may have occurred due to the inherent limitations of voice recognition software.
Discharge Plan
Departure
Patient Disposition: Home (Routine Discharge)
Date of Disposition: 11/07/24
Time of Disposition: 12:13
Patient with high blood pressure during this ER visit?: Yes
Condition: Fair
Discharge Problem:
fungal skin rash
Instructions: Fungal skin rash - ED (DC), BLOOD PRESSURE
Prescriptions:
New
clotrimazole 1 % cream
1 applic topical BID Qty: 90 0RF
cephalexin 500 mg capsule
500 mg PO Q6H Qty: 28 0RF
No Action
ascorbic acid (vitamin C) [Vitamin C] 500 mg tablet
500 mg PO DAILY
atorvastatin 80 mg tablet
80 mg PO HS
glipizide 5 mg tablet
5 mg PO QPM
lisinopril 10 mg Tablet
10 mg PO DAILY
omega 2-wpm-zfa-fish oil [Fish Oil] 1,000 (120-180) mg Capsule
1 cap PO QPM
coQ10 (ubiquinol) 100 mg Capsule
100 mg PO QPM
magnesium oxide 400 mg magnesium Tablet
400 mg PO HS
polyethylene glycol 3350 17 gram Powder In Packet
17 g PO DAILY Qty: 30 0RF
oxycodone 5 mg Tablet
5 mg PO Q4HPRN PRN (Reason: moderate to severe pain) Qty: 15 0RF
acetaminophen 325 mg Tablet
650 mg PO Q4HPRN PRN (Reason: mild pain/VARGAS/temp>100.5) Qty: 0 0RF
metoprolol succinate 25 mg tablet extended release 24 hr
12.5 mg PO BID
Polysporin 500-10,000 unit/gram ointment in packet
1 applic topical DAILY
aspirin [Children's Aspirin] 81 mg Tablet,Chewable
81 mg PO DAILY 30 Days Qty: 30 0RF
clopidogrel 75 mg Tablet
75 mg PO DAILY 30 Days Qty: 30 0RF
Jardiance 10 mg Tablet
10 mg PO DAILY 30 Days Qty: 30 0RF
Referrals:
UNKNOWN - PT DOES,NOT KNOW [Family Provider]
Activity Restrictions/Additional Instructions:
As discussed you are prescribed antifungal cream to apply to affected area twice daily. In addition in order to cover for possible skin infection an antibiotic was sent to pharmacy as well. take as directed.
Keep the area very dry
please closely follow-up with your family doctor in the next 2-3 days for recheck. Return if any worsening of symptoms worsening rash fever chills or any further concerns.
Interventions
Interventions:
*Risk Screen - Suicide Last Done: 11/07/24 09:30
*General Assessment Last Done: 11/07/24 11:35
*Neglect/Abuse Screening Last Done: 11/07/24 11:36
*ED- Fall Risk Assessment Last Done: 11/07/24 11:35
*ED COVID-19 Vaccine History Last Done: 11/07/24 11:35
ED-Skin Assessment Last Done: 11/07/24 11:22
Discharge Date and Time
Print Language: SERBIAN
[2024-11-07 11:34] VITALS: BMI 39.0
[2024-11-07 11:38] VITALS: BP 127/57
[2024-11-07 12:09] LABS: Glucose - Point of Care 95 mg/dl (70-99)
== END 2024-11-07 12:25 | disposition home or self-care (01) ==
LOC: EMR 09:25
PROVIDERS: EMERGENCY PHYSICIAN Emergency Medicine
DX: B36.9 Superficial mycosis, unspecified (principal); E11.9 Type 2 diabetes mellitus without complications; E78.00 Pure hypercholesterolemia, unspecified; I10 Essential (primary) hypertension; I25.10 Atherosclerotic heart disease of native coronary artery without angina pectoris; Z95.1 Presence of aortocoronary bypass graft
CPT/HCPCS: 99283; 82962

== ENCOUNTER 2025-01-03 13:56 | Emergency (ER) | payer OTHER, SELFPAY ==
[2025-01-03] VITALS (14 sets, daily range): BP systolic 138–222; BP diastolic 67–120; BMI 37.1
[2025-01-03 15:22] LABS: Hematocrit 45.2 % (37.0-47.0); Hemoglobin 14.6 g/dL (12.0-16.0); Mean Corp Hgb Conc. 32.3 g/dL (33.0-37.0); Mean Corpuscular Volume 90.9 fL (81.0-99.0); Nucleated Red Blood Cells % 0 %; Platelet Count 295 10^3/uL (130-400); Red Cell Dist. Width 13.2 % (11.5-14.5)
--- NOTE | 2025-01-03 15:28 | ED.GENMED ---
History of Present Illness
General
Chief Complaint: Blood Pressure Problem
Time Seen by Provider: 01/03/25 14:10
History of Present Illness
History of Present Illness:
FOCUSED PAST MEDICAL HISTORY
- CAD, high blood pressure, hyperlipidemia, coronary bypass, left CEA, right lower extremity angioplasty
REVIEW OF OLD RECORDS
- In April 2024, the patient had angioplasty right lower extremity
Note:
CHIEF COMPLAINT(S)
High blood pressure reading, no associated symptoms.
HISTORY OF PRESENT ILLNESS
The patient is a 69-year-old female with a significant cardiac history, including a six-vessel coronary artery bypass graft surgery two years ago, a left carotid endarterectomy, and a right lower extremity angioplasty one year apart. She monitors
her blood pressure daily due to these past medical conditions. She presents today after her sister, with whom she lives, noted a blood pressure reading of 220/100 mmHg. Upon arrival, the emergency department measured her blood pressure at 179/87
mmHg. The patient reports no symptoms such as chest pain, headache, or neurological deficits that would necessitate immediate intervention. There has been a history of a mini-stroke without cerebral bleeding, and she is concerned about possible
blockages given her cardiac history. She also experiences episodic high blood pressure readings, including a recent reading of 160/?.
The patient is under the care of a manager metrology and a primary care physician, who have been managing her hypertension and past cardiac events. Her current medication regimen includes carvedilol and lisinopril, as well as aspirin and Plavix, due to
her cardiovascular history. She previously experienced higher blood pressure readings and has had a nosebleed attributed to her elevated blood pressure and medication use.
Overall, the patient has no symptoms, no chest pain, no headache, no neurologic deficits
PAST MEDICAL AND SURIGICAL HISTORY
- Coronary artery bypass graft surgery (six vessels)
- Left carotid endarterectomy
- Right lower extremity angioplasty
- Mini-stroke (without cerebral bleeding)
CHRONIC MEDICAL CONDITIONS SIGNIFICANTLY AFFECTING CARE
- Hypertension
- Cardiovascular disease with coronary artery bypass surgery and endarterectomy
- History of transient ischemic attack (TIA), referred to as a mini-stroke
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
- Lives with her sister who assists with daily blood pressure monitoring.
MEDICATIONS
- Carvedilol 12.5 mg twice daily
- Lisinopril 10 mg daily
- Aspirin
- Plavix
REVIEW OF SYSTEMS
- Cardiovascular: High blood pressure without chest pain or cardiac symptoms.
- Neurological: No headache or focal neurological deficits.
PHYSICAL EXAM
General: Alert, no acute distress. She is hypertensive, elevated BMI
Skin: Warm, dry.
Head: Normocephalic, atraumatic.
Neck: Supple, trachea midline.
Eye Ears, nose, mouth and throat: Oral mucosa moist.
Cardiovascular: Normal peripheral perfusion, No edema. Good perfusion to the right lower extremity
Respiratory: Respirations are non-labored.
Gastrointestinal : Abdomen nondistended
Back: Normal range of motion, Normal alignment.
Musculoskeletal: Normal range of motion, normal strength.
Neurological: Alert and oriented to person, place, time, and situation, No focal neurological deficit observed.
Psychiatric: Cooperative, appropriate mood & affect.
PLAN
The plan includes contacting the on-call manager metrology to discuss management of the patients hypertension and potential adjustments to her medication regimen to ensure stable blood pressure control.
DIFFERENTIAL DIAGNOSIS
The Differential Diagnosis includes, in no particular order and is not limited to:
- Hypertensive urgency
- Hypertensive emergency
- Cardiovascular disease exacerbation
- Renal artery stenosis
- Aortic dissection
- Pheochromocytoma
- Hyperthyroidism
- Primary aldosteronism
- Neurological causes (stroke, transient ischemic attack)
- Anxiety or stress-related blood pressure spikes
EKG
- Sinus 84, nonspecific ST abnormality, septal Q waves
LABS
- CBC unremarkable, chemistries unremarkable
UPDATE
-SUMMARY OF ENCOUNTER
The patient, a 69-year-old female with a significant cardiac history, visited the emergency department due to a high blood pressure reading of 220/100 mmHg at home. Upon arrival, her blood pressure was measured at 179/87 mmHg. She reported no
symptoms such as chest pain or headache. Her current medication regimen included carvedilol and lisinopril. In the emergency department, she was advised to adjust her lisinopril dosage from 10 mg to 20 mg daily due to the high blood pressure
readings. The patient was reassured that while episodic high blood pressure is common, immediate treatment is only necessary if specific symptoms occur.
PLAN
The plan includes the recommendation to increase her lisinopril dosage to 20 mg daily. She is advised to monitor her blood pressure closely and follow up with her manager metrology. If she experiences any significant symptoms or if her blood pressure
readings remain elevated, she should seek medical advice promptly. She was instructed to contact Dr. Lal office for further instructions. The aim is to manage her hypertension safely through medication adjustments rather than acute
interventions.
MEDICATION RECONCILIATION
- Lisinopril dosage increased from 10 mg to 20 mg daily.
- Continue taking carvedilol as prescribed.
MEDICAL DECISION MAKING
1. Number and Complexity of Problems Addressed:
- Chronic conditions affecting care: Hypertension, cardiovascular disease with coronary artery bypass surgery and endarterectomy, history of transient ischemic attack (TIA).
- Differential Diagnosis include:
- Hypertensive urgency
- Hypertensive emergency
- Cardiovascular disease exacerbation
- Renal artery stenosis
- Aortic dissection
- Pheochromocytoma
- Hyperthyroidism
- Primary aldosteronism
- Neurological causes (stroke, transient ischemic attack)
- Anxiety or stress-related blood pressure spikes
2. Data:
Category 1:
- Clinical information obtained and discussed with the cardiology team.
3. Risk:
- Prescription drug management with adjustment of lisinopril dosage.
- Consideration was given to escalate care but the decision to manage outpatient with close monitoring was made. The plan includes the recommendation for follow-up and re-evaluation of the blood pressure control strategy.
DIAGNOSIS
- Essential (Primary) Hypertension (ICD-10: I10)
- Poor high blood pressure control transiently
Past History
Past History
ED Past Medical History: CAD, HTN, Hypercholesterolemia, NIDDM and Other (carotid stenosis)
ED Past Surgical History: Cardiac (CABG March 2023) and Orthopedic (Lumbar surgery many years ago)
Social History
Tobacco: Non-smoker
Drug: None
Living: with family
Employment: Retired
Family History
Family History: Other (Sister with breast cancer)
Phy Exam
Physical Exam
Physical Exam:
See HPI
Course
Orders/Labs/Results
Orders:
Orders
01/03/25 14:02
Electrocardiogram (*1) Urgent
Reason for Study: Hypertension, Benign
EKG- Treatment ONCE
01/03/25 15:13
Basic Metabolic Panel Urgent
Complete Blood Count/With Diff Urgent
01/03/25 15:27
Lisinopril [Zestril] 20 mg PO NOW STA
Abnormal Lab Results
01/03/25
15:13
MCHC 32.3 L g/dL
(33.0-37.0)
Carbon Dioxide 31 H mmol/L
(22-30)
BUN 22 H mg/dl
(7-17)
Glucose 113 H mg/dl
(70-99)
01/03/25 15:13
01/03/25 15:13
Vital Signs
Initial and Last Documented VS:
Initial Vital Signs
Temp Pulse Resp BP Pulse Ox
36.6 C 83 18 222/120 97
01/03/25 13:59 01/03/25 13:59 01/03/25 13:59 01/03/25 13:59 01/03/25 13:59
Last Documented Vital Signs
Temp Pulse Resp BP Pulse Ox
36.4 C 72 16 138/67 98
01/03/25 14:14 01/03/25 18:04 01/03/25 18:04 01/03/25 18:04 01/03/25 18:04
*Pulse Oximetry
SaO2: 99
Oxygen Mode of Delivery: Room air
Patient hypoxic: no
*Critical Care Note
Total Time (30-74mins, 75-104mins- exclusive of procedures): Not Applicable
ED Attending Note
-
Portions of this chart may have been created with voice recognition software.� Occasional wrong word or��sound alike� substitutions may have occurred due to the inherent limitations of voice recognition software.
Discharge Plan
Departure
Patient Disposition: Home (Routine Discharge)
Date of Disposition: 01/03/25
Time of Disposition: 17:50
Patient with high blood pressure during this ER visit?: Yes
Discharge Problem:
Poor high blood pressure control
Instructions: High Blood Pressure (DC), BLOOD PRESSURE
Prescriptions:
No Action
ascorbic acid (vitamin C) [Vitamin C] 500 mg tablet
500 mg PO DAILY
atorvastatin 80 mg tablet
80 mg PO HS
glipizide 5 mg tablet
5 mg PO QPM
lisinopril 10 mg Tablet
10 mg PO DAILY
coQ10 (ubiquinol) 100 mg Capsule
100 mg PO QPM
magnesium oxide 400 mg magnesium Tablet
400 mg PO HS
carvedilol 12.5 mg Tablet
12.5 mg PO BID
aspirin [Children's Aspirin] 81 mg Tablet,Chewable
81 mg PO DAILY 30 Days Qty: 30 0RF
clopidogrel 75 mg Tablet
75 mg PO DAILY 30 Days Qty: 30 0RF
Jardiance 10 mg Tablet
10 mg PO DAILY 30 Days Qty: 30 0RF
Referrals:
Quoc Cabrales MD, Resident [Family Provider, General]
Mundo Toledo MD [Active, Cardiology]
Activity Restrictions/Additional Instructions:
I sent a message to Dr. Bazan, Dr. Toledo's partner but I did not hear back from him. We gave you a dose of lisinopril 20 mg tonight. Therefore do not take your 10 mg lisinopril dose that you normally do at 8 PM. Starting tomorrow, I recommend
starting lisinopril 20 mg at 8 PM (take two of the 10mg pills at the same time). You can make these changes in addition to continuing the normal carvedilol 12.5 mg twice a day. Basic blood work is normal. Follow-up with your primary care doctor
and manager metrology.
Interventions
Interventions:
*Risk Screen - Suicide Last Done: 01/03/25 13:59
*General Assessment Last Done: 01/03/25 13:59
*Neglect/Abuse Screening Last Done: 01/03/25 13:59
*ED- Fall Risk Assessment Last Done: 01/03/25 14:14
*ED COVID-19 Vaccine History Last Done: 01/03/25 14:14
*ED Influenza Vaccine History Last Done: 01/03/25 14:14
ED- Cardiac Assessment Last Done: 01/03/25 14:14
ED- Neurological Assessment Last Done: 01/03/25 14:14
ED- Pulmonary Assessment Last Done: 01/03/25 14:14
Discharge Date and Time
Print Language: PALESTINIAN
[2025-01-03 15:34] LABS: Blood Urea Nitrogen 22 mg/dl (7-17); Calcium 9.3 mg/dl (8.4-10.2); Carbon Dioxide 31 mmol/L (22-30); Chloride 102 mmol/L (98-107); Estimated Creatinine Clearance 91 ml/min; Glucose 113 mg/dl (70-99); Potassium 4.2 mmol/L (3.5-5.1); Sodium 139 mmol/L (135-145); eGFR > 60.00
[2025-01-03] MEDS: ZESTRIL 20 MG PO (17:18)
== END 2025-01-03 18:40 | disposition home or self-care (01) ==
LOC: EMR 13:56
PROVIDERS: EMERGENCY PHYSICIAN Emergency Medicine; FAMILY PHYSICIAN Student in an Organized Health Care Education/Training Program
DX: I10 Essential (primary) hypertension (principal); E11.9 Type 2 diabetes mellitus without complications; I25.810 Atherosclerosis of coronary artery bypass graft(s) without angina pectoris; E78.00 Pure hypercholesterolemia, unspecified; Z79.82 Long term (current) use of aspirin; Z79.02 Long term (current) use of antithrombotics/antiplatelets; Z79.84 Long term (current) use of oral hypoglycemic drugs; Z95.1 Presence of aortocoronary bypass graft; Z86.73 Personal history of transient ischemic attack (TIA), and cerebral infarction without residual deficits
CPT/HCPCS: 99284; 80048; 85025; 93005

== ENCOUNTER → 2025-01-16 09:40 | Outpatient (REF) | payer OTHER, SELFPAY ==
[2025-01-16 11:32] LABS: HDL Cholesterol 41 mg/dl; LDL Cholesterol, Calculated 52 mg/dl; Very Low Density Lipoprotein 53 mg/dl (0-30)
== END ==
LOC: REG 09:40
PROVIDERS: ATTENDING PHYSICIAN Internal Medicine Cardiovascular Disease; FAMILY PHYSICIAN Student in an Organized Health Care Education/Training Program
DX: Z95.1 Presence of aortocoronary bypass graft (principal)
CPT/HCPCS: 36415; 80061

== ENCOUNTER → 2025-02-09 08:26 | Outpatient (REF) | payer OTHER, SELFPAY ==
[2025-02-09 11:47] LABS: Calcium 9.4 mg/dl (8.4-10.2); Carbon Dioxide 28 mmol/L (22-30); Chloride 105 mmol/L (98-107); Glucose 78 mg/dl (70-99); Potassium 5.2 mmol/L (3.5-5.1); Sodium 139 mmol/L (135-145); eGFR > 60.00
[2025-02-09 12:04] LABS: Blood Urea Nitrogen 21 mg/dl (7-17)
== END ==
LOC: REG 08:26
PROVIDERS: ATTENDING PHYSICIAN Internal Medicine Cardiovascular Disease
DX: Z95.1 Presence of aortocoronary bypass graft (principal)
CPT/HCPCS: 36415; 80048

== ENCOUNTER 2025-02-09 09:17 | Emergency (ER) | payer OTHER, SELFPAY ==
[2025-02-09 09:19] VITALS: BP 192/103
--- NOTE | 2025-02-09 11:36 | ED.GENMED ---
History of Present Illness
General
Chief Complaint: Nose Bleed
Time Seen by Provider: 02/09/25 11:16
History of Present Illness
History of Present Illness:
70-year-old female with history of CAD and peripheral arterial disease on Plavix and aspirin presents to the emergency department for evaluation of left-sided epistaxis that began spontaneously this morning. Arrives with nasal clamp in place
Past History
Past History
ED Past Medical History: CAD, HTN, Hypercholesterolemia, NIDDM and Other (carotid stenosis)
ED Past Surgical History: Cardiac (CABG March 2023) and Orthopedic (Lumbar surgery many years ago)
Social History
Tobacco: Non-smoker
Drug: None
Living: with family
Employment: Retired
Family History
Family History: Other (Sister with breast cancer)
Review of Systems
Review of Systems
Allergies reviewed?: Yes
All Other Systems: ROS reviewed and negative except as documented in HPI and ROS
Phy Exam
Physical Exam
Physical Exam:
GEN: Well appearing, NAD, WDWN
HEENT: Oral mucosa moist, no scleral icterus. Evidence of prior bleeding in the left anterior naris/septum/inferior turbinate, no evidence of active oropharyngeal bleeding
Cardiac: Regular rate
Lung: No respiratory distress, no tachypnea
MSK: No gross deformity or injuries
Skin: Good color, no pallor or jaundice, no rashes
Neuro: AO x3, moves all extremities freely
Psych: Calm, cooperative
Course
Vital Signs
Initial and Last Documented VS:
Initial Vital Signs
Temp Pulse Resp BP Pulse Ox
97.8 F 75 16 192/103 98
02/09/25 09:19 02/09/25 09:19 02/09/25 09:19 02/09/25 09:19 02/09/25 09:19
Last Documented Vital Signs
Temp Pulse Resp BP Pulse Ox
97.8 F 75 16 192/103 98
02/09/25 09:19 02/09/25 09:19 02/09/25 09:19 02/09/25 09:19 02/09/25 11:36
MDM/Problems Addressed
MDM/Problems Addressed:
Patient treated with topical lidocaine and epinephrine followed by silver nitrate cautery with good hemostasis. Recommend outpatient ENT follow-up, discussed need for topical Neosporin twice daily for 1 week
*Pulse Oximetry
SaO2: 98
Oxygen Mode of Delivery: Room air
Patient hypoxic: no
*Critical Care Note
Total Time (30-74mins, 75-104mins- exclusive of procedures): Not Applicable
ED Attending Note
-
Portions of this chart may have been created with voice recognition software.� Occasional wrong word or��sound alike� substitutions may have occurred due to the inherent limitations of voice recognition software.
Discharge Plan
Departure
Patient Disposition: Home (Routine Discharge)
Date of Disposition: 02/09/25
Time of Disposition: 12:31
Patient with high blood pressure during this ER visit?: No
Discharge Problem:
Acute anterior epistaxis
Instructions: Nosebleeds (DC)
Prescriptions:
No Action
ascorbic acid (vitamin C) [Vitamin C] 500 mg tablet
500 mg PO DAILY
atorvastatin 80 mg tablet
80 mg PO HS
glipizide 5 mg tablet
5 mg PO QPM
lisinopril 10 mg Tablet
10 mg PO DAILY
coQ10 (ubiquinol) 100 mg Capsule
100 mg PO QPM
magnesium oxide 400 mg magnesium Tablet
400 mg PO HS
carvedilol 12.5 mg Tablet
12.5 mg PO BID
aspirin [Children's Aspirin] 81 mg Tablet,Chewable
81 mg PO DAILY 30 Days Qty: 30 0RF
clopidogrel 75 mg Tablet
75 mg PO DAILY 30 Days Qty: 30 0RF
Jardiance 10 mg Tablet
10 mg PO DAILY 30 Days Qty: 30 0RF
Referrals:
Quoc Cabrales MD, Resident [Family Provider, General]
Jesse Craft MD [Active, Otology]
Interventions
Interventions:
*Risk Screen - Suicide (C-SSRS) Last Done: 02/09/25 09:19
*Nursing Disposition Last Done: 02/09/25 13:52
ED-EENT Assessment Last Done: 02/09/25 11:57
Discharge Date and Time
Discharge Date/Time: 02/09/25 13:00
Print Language: IVORIAN
== END 2025-02-09 13:00 | disposition home or self-care (01) ==
LOC: EMR 09:17
PROVIDERS: EMERGENCY PHYSICIAN Student in an Organized Health Care Education/Training Program; FAMILY PHYSICIAN Student in an Organized Health Care Education/Training Program
DX: R04.0 Epistaxis (principal); E11.51 Type 2 diabetes mellitus with diabetic peripheral angiopathy without gangrene; I25.10 Atherosclerotic heart disease of native coronary artery without angina pectoris; I10 Essential (primary) hypertension; E78.00 Pure hypercholesterolemia, unspecified; I65.29 Occlusion and stenosis of unspecified carotid artery; Z79.02 Long term (current) use of antithrombotics/antiplatelets; Z79.82 Long term (current) use of aspirin; Z79.84 Long term (current) use of oral hypoglycemic drugs; Z95.1 Presence of aortocoronary bypass graft
CPT/HCPCS: 99282; 30901